=== PATIENT | female | born 1970 | race Caucasian/White ===

== ENCOUNTER → 2018-10-02 22:39 | Outpatient (CLI) | payer OTHER, SELFPAY ==
[2018-10-02 16:41] VITALS: BMI 37.9
== END ==
PROVIDERS: Visit Provider Nurse Practitioner
DX: R50.81 Fever presenting with conditions classified elsewhere (principal)
CPT/HCPCS: 87086

== ENCOUNTER → 2019-02-28 22:27 | Outpatient (CLI) | payer OTHER, SELFPAY ==
[2019-02-28 19:04] VITALS: BMI 33.3
[2019-02-28 23:06] LABS: Luteinizing Hormone 35.7 mIU/mL; Thyroid Stim Hormone (TSH) 2.48 uIU/mL (0.358-3.74)
== END ==
PROVIDERS: Referring Provider Nurse Practitioner; Visit Provider Nurse Practitioner
DX: Z78.0 Asymptomatic menopausal state (principal)
CPT/HCPCS: 83001; 83002; 84443

== ENCOUNTER → 2019-08-16 08:40 | Outpatient (CLI) | payer OTHER, SELFPAY ==
--- NOTE | 2019-08-16 | IMM_PTH ---
PATIENT: MEGHAN GRANT LOC: [facility] U#:[id number] AGE/SX: 54/F ROOM: RE08/16/[address]: AKILA Otto : 1970 BED: DIS: SPEC #: [id number] RECD: 08/21/19 12:43 STATUS: FLAKO VENU #: [id number] MALLORY: 08/16/19 00:[address]: Guera Bryant NP DEPT: IMMUNOHISTOCHEMISTRY RECD BY: Precious Lindsey Tissues: Skin of lower extremity and hip Procedures: SMA (add) CD34 (add) MACRO (add) Vimentin (add) NEUROFIL (add) Pankeratin (initial) S-100 (add) PHYSICIAN & INSTITUTION [place] [address] SPECIMEN INFORMATION: Tissue Source: Abnormal nevi left thigh Clinical Info: Abnormal nevi left thigh Specimen Number: [id number] CPT code: 66972, 08325 x6 METHODOLOGY: Deparaffinized sections of prefer/formalin-fixed tissue or PAP/DQ stained slides are incubated with monoclonal/polyclonal antibodies/oligonucleotide probes. Localization is made via biotin free immunoperoxidase method. Appropriate controls are performed and reacted as expected. Results on target cell population are indicated in the following table: RESULTS: ANTIBODY / CLONE RESULT AE1-3 (AE1/AE3/PCK26) negative Vimentin (V9) positive Actin (1A4) negative CD34 (QBEnd-10) positive, focal Macro (HAM-56) negative S-100 (4C4.9) negative Neurofil (2F11) negative These tests were developed and their performance characteristics determined by [facility]. They may not have been cleared or approved by the [place] Food and Drug Administration. The FDA has determined that such clearance or approval is not necessary. The above immunohistochemical/dualISH markers are ordered and reviewed by the Pathologist. INTERPRETATION: Left thigh biopsy: Consistent with dermatofibroma. AM:lora 08/22/19
--- NOTE | 2019-08-16 | LES_PTH ---
PATIENT: MEGHAN GRANT LOC: [facility] U#:[id number] AGE/SX: 54/F ROOM: RE08/16/[address]: AKILA Otto : 1970 BED: DIS: SPEC #: [id number] RECD: 08/16/19 21:19 STATUS: FLAKO VENU #: [id number] MALLORY: 08/16/19 00:[address]: Guera Bryant NP DEPT: SURGICAL PATHOLOGY RECD BY: Oscar Can Tissues: Skin of leg, NOS Procedures: Surgery Specimen Level IV HEADER OPERATION: Biopsy PRE-OP DIAGNOSIS: Neoplasm TISSUE SUBMITTED: Abnormal nevi left thigh MICROSCOPIC DIAGNOSIS Skin lesion of left thigh, biopsy: Consistent with dermatofibroma. See comment. AM:lora 08/21/19 COMMENT Immunohistochemistry ([id number]) supports the above diagnosis. Case has been reviewed in consultation with Dr. Beckman who concurs with the above diagnosis. IDC:SJ MICROSCOPIC DESCRIPTION Slides are reviewed. GROSS DESCRIPTION Received in fixative is one container labeled with the patient's name and designated left thigh. The specimen consists of a punch biopsy of hallman-white skin measuring 2.5 cm in diameter and 0.2 cm in length. The specimen is inked, longitudinally bisected and submitted entirely in one cassette. / KRISTINA:lora 08/20/19 TC:5 CPT: 27694
[2019-08-16 21:04] VITALS: BMI 34.3
== END ==
PROVIDERS: PCP Nurse Practitioner; Visit Provider Nurse Practitioner
DX: D49.2 Neoplasm of unspecified behavior of bone, soft tissue, and skin (principal)
CPT/HCPCS: 88305; 88341; 88342

== ENCOUNTER → 2019-10-24 22:03 | Outpatient (CLI) | payer OTHER, SELFPAY ==
[2019-10-24 16:28] VITALS: BMI 34.3
[2019-10-24 22:12] LABS: Absolute Lymphocyte Count 1.84 X10^3/uL (0.83-4.51); Basophil# 0.02 X10^3/uL; Basophil% 0.3 % (0-1); Eosinophils% 1.5 % (0-5); Hematocrit 39.4 % (37-47); Hemoglobin 13.6 g/dL (12.0-15.0); Lymphocyte # 1.84 X10^3/ul (4.0); Lymphocyte % 28.4 % (19-41); Mean Corp Hgb Conc 34.5 g/dL (32-36); Mean Corpuscular Hgb 30.9 pg (27.0-32.0); Mean Corpuscular Volume 89.5 fL (81-99); Mean Platelet Vol. 11.8 fl (6.2-12.0); Monocyte# 0.48 X10^3/uL; Monocyte% 7.4 % (0-10); NRBC Flagged by Analyzer 0 % (0-5); Neutrophil # 4.02 X10^3/uL (2.7-7.7); Neutrophil % 62.1 % (47-70); Platelet Count 235 K/mm3 (150-450); RBC Distribution Width CV 12.8 % (11.6-14.6); RBC Distribution Width SD 41.2 fl (35.1-43.9); White Blood Count 6.5 K/mm3 (4.4-11.0)
[2019-10-24 22:36] LABS: ALB/GLOB Ratio 1.3 RATIO (0.9-2.4); AST(SGOT) 20 U/L (15-37); Alanine Aminotransfer ALT/SGPT 27 U/L (13-56); Albumin, Serum 4.1 g/dL (3.2-5.0); Alkaline Phosphatase 66 U/L (45-117); Anion Gap 5 (5-15); BUN 14 mg/dL (7-18); BUN/Creat Ratio 15.3 RATIO (10-20); Calcium,Total 9.1 mg/dL (8.5-10.1); Chloride 110 mmol/L (98-107); Cholesterol 274 mg/dL (200); Creatinine, Serum 0.91 mg/dL (0.55-1.02); EST Glomerular Filtration Rate 69 mL/min (>60); Est Glom Filt Rate - Afr Amer 83 mL/min (>60); Globulin 3.2 g/dL (2.2-4.2); Glucose 90 mg/dL (74-106); High Density Lipoprotein 66 mg/dL; Potassium 3.8 mmol/L (3.5-5.1); Protein, Total 7.3 g/dL (6.4-8.2); Sodium Level 142 mmol/L (136-145); Thyroid Stim Hormone (TSH) 1.58 uIU/mL (0.358-3.74); Triglycerides 171 mg/dL; Very Low Density Lipoprotein 34 mg/dL (5-40)
[2019-10-28 17:33] LABS: Vitamin D 1,25-Dihydroxy 35.8 pg/mL (19.9-79.3)
== END ==
PROVIDERS: PCP Nurse Practitioner; Referring Provider Nurse Practitioner; Visit Provider Nurse Practitioner
DX: E78.00 Pure hypercholesterolemia, unspecified (principal); Z78.0 Asymptomatic menopausal state; E55.9 Vitamin D deficiency, unspecified; E03.9 Hypothyroidism, unspecified
CPT/HCPCS: 80053; 80061; 82652; 84443; 85025

== ENCOUNTER → 2021-02-16 07:55 | Outpatient (CLI) | payer BC, SELFPAY | PROVIDERS: PCP Nurse Practitioner; Referring Provider Nurse Practitioner; Visit Provider Nurse Practitioner | DX: U07.1 COVID-19 (principal) | CPT/HCPCS: 87635; C9803; U0005; U0003 ==

== ENCOUNTER 2021-02-17 13:59 | Outpatient (CLI) | payer BC, SELFPAY ==
[2021-02-17] MEDS: 0.9% Saline Lock 10 ML Syringe IV (14:07)
[2021-02-17 14:08] VITALS: BP 118/72; PULSE 65; RESP 16; TEMP 36.7; O2SAT 100; BMI 30.7
[2021-02-17 15:31] VITALS: BP 103/58; PULSE 53; RESP 16; TEMP 36.8; O2SAT 100
[2021-02-17 16:18] VITALS: BP 102/60; PULSE 58; RESP 16; TEMP 36.7; O2SAT 98
== END 2021-02-17 16:35 | disposition home or self-care (01) ==
LOC: MS3OUT 13:59 → MS3 14:00
PROVIDERS: PCP Nurse Practitioner; Referring Provider Nurse Practitioner Adult Health; Visit Provider Nurse Practitioner Adult Health
DX: Z23 Encounter for immunization (principal); U07.1 COVID-19
CPT/HCPCS: J7050; M0245; Q0245; A4216

== ENCOUNTER → 2022-05-24 | Outpatient (CLI) | payer OTHER, SELFPAY ==
[2022-05-24 21:29] LABS: Absolute Lymphocyte Count 2.05 X10^3/uL (0.83-4.51); Absolute Neutrophil Count 2.8 X10^3/uL (2.0-7.7); Basophil# 0.03 X10^3/uL; Basophil% 0.6 % (0-1); Eosinophil# 0.07 X10^3/uL; Eosinophils% 1.3 % (0-5); Hematocrit 39.7 % (37-47); Hemoglobin 13.7 g/dL (12.0-15.0); Lymphocyte # 2.05 X10^3/ul (0.83-4.51); Lymphocyte % 38.2 % (19-41); Mean Corp Hgb Conc 34.5 g/dL (32-36); Mean Corpuscular Hgb 30.6 pg (27.0-32.0); Mean Corpuscular Volume 88.8 fL (81-99); Mean Platelet Vol. 11.5 fl (6.2-12.0); Monocyte# 0.42 X10^3/uL; Monocyte% 7.8 % (0-10); NRBC Flagged by Analyzer 0 % (0-5); Neutrophil # 2.78 X10^3/uL (2.7-7.7); Neutrophil % 51.9 % (47-70); Platelet Count 203 K/mm3 (150-450); RBC Distribution Width CV 12.1 % (11.6-14.6); RBC Distribution Width SD 39.2 fl (35.1-43.9); Red Blood Count 4.47 M/mm3 (4.2-5.4); White Blood Count 5.4 K/mm3 (4.4-11.0)
[2022-05-24 21:38] LABS: International Normalized Ratio 0.9
[2022-05-24 21:53] LABS: ALB/GLOB Ratio 1.4 RATIO (0.9-2.4); AST(SGOT) 14 U/L (15-37); Alanine Aminotransfer ALT/SGPT 19 U/L (13-56); Albumin, Serum 4.2 g/dL (3.2-5.0); Alkaline Phosphatase 62 U/L (45-117); Anion Gap 6 (5-15); BUN 10 mg/dL (7-18); BUN/Creat Ratio 17.3 RATIO (10-20); CRP, High Sensitivity Cardiac 0.67 mg/L; Calcium,Total 9.5 mg/dL (8.5-10.1); Chloride 105 mmol/L (98-107); Cholesterol 243 mg/dL (200); Creatinine, Serum 0.58 mg/dL (0.55-1.02); EST Glomerular Filtration Rate 116 mL/min (>60); Est Glom Filt Rate - Afr Amer 140 mL/min (>60); Globulin 3.1 g/dL (2.2-4.2); Glucose 89 mg/dL (74-106); High Density Lipoprotein 67 mg/dL; Potassium 3.6 mmol/L (3.5-5.1); Protein, Total 7.3 g/dL (6.4-8.2); Sodium Level 140 mmol/L (136-145); Thyroid Stim Hormone (TSH) 1.77 uIU/mL (0.358-3.74); Triglycerides 135 mg/dL; Very Low Density Lipoprotein 27 mg/dL (5-40)
[2022-05-30 19:01] LABS: Anti-Cardiolipin Ab, IgA, Qn < 9 APL U/mL (0-11); Anti-Cardiolipin Ab, IgG, Qn < 9 GPL U/mL (0-14); Anti-Cardiolipin Ab, IgM, Qn < 9 MPL U/mL (0-12)
== END | disposition home or self-care (01) ==
PROVIDERS: PCP Nurse Practitioner; Visit Provider Nurse Practitioner
DX: Z00.00 Encounter for general adult medical examination without abnormal findings (principal); D69.9 Hemorrhagic condition, unspecified; E78.5 Hyperlipidemia, unspecified; R23.0 Cyanosis
CPT/HCPCS: 80053; 80061; 81241; 84443; 85025; 85610; 86141; 86147

== ENCOUNTER → 2025-01-22 | Outpatient (CLI) | payer OTHER, SELFPAY ==
--- OUTSIDE RECORDS SUMMARY | 2025-01-22 22:38 | XMS RPT_ITS | CCD ---
Author Organization [facility] Care Team Providers Care Section Leader And Machine Setter Name Role Phone Manny HICKS.MICHAEL, Lashawn L Primary Care Provide r Manny CORE RESCUER, Lashawn Attending Unavailable Manny CORE RESCUER, Lashawn Primary Care Unavailable BETHEL JOYCE Attending Daisyv janel Bryant BED SPRING MAKER.FIRE POT OPERATOR, Lashawn L Primary Care Provide r PROVIDER, UNKNOWN Referring Unavailable BRYANT, LASHAWN L Primary Care Unavailable WILL KNOX Referring Unavailable BRYANT, LASHAWN L Primary Care Unavailable BRYANT, LASHAWN L Primary Care Unavailable PROVIDER, UNKNOWN Referring Unavailable BRYANT, LASHAWN L Primary Care Unavailable PROVIDER, UNKNOWN Referring Unavailable BERNARDA SUGGS Attending Unavailable BRYANT, LASHAWN L Primary Care Unavailable BARBIE PEARL Attending Unavailable BRYANT, LASHAWN L Primary Care Unavailable BRYANT, LASHAWN L Primary Care Unavailable KING POTTS (RES) Attending Unavailabl e BRYANT, LASHAWN L Primary Care Unavailable KAMRYN ADAMS Attending Unavaila ble Allergies Allergy Classification Reported Allergen(s) Allergy Type Date of Onset Reaction(s) Facility (13 sources) Adhesive Tape-Silicones; Translations: [ADHESIVE TAPE-SILICONES] Propensity to adverse reactions to drug 09-13-[address] [facility] Medications Current Medications Medication Drug Class(es) Dates Sig (Normalized) Sig (Original) amoxicillin 875 mg / clavulanate 125 mg oral tablet (3 sources) Penicillin-class Antibacterial Start: 02-23-2022 End: 05-24-2022 take 1 tablet by mouth twice daily Amoxicillin-Pot Clavulanate Active 1 TABLET PO TWICE A DAY May 24, 2022 3:45pm Start: 03-18-2020 End: 04-08-2020 take 1 tablet by mouth twice daily Amoxicillin-Pot Clavulanate Discontinued 1 TABLET PO TWICE A DAY March 18, 2020 12:00am April 08, 2020 5:26pm atorvastatin 20 mg oral tablet (10 sources) HMG-CoA Reductase Inhibitor Start: 09-05-2023 take 1 tablet by mouth once atorvastatin (LIPITOR) 20 mg tablet Take 1 tablet by mouth every afternoon. 09/05/2023 Active Black Cohosh Extract (16 sources) Start: 01-01-2020 Black Cohosh 200 mg cap 1 a day 30 capsule 11 01/01/2020 Active Comment on above: 1 a day cholecalciferol 0.125 mg oral tablet (3 sources) Vitamin D take 1 tablet by mouth once daily cholecalciferol (VITAMIN D-3) 5,000 unit tab Take 5,000 Units by mouth once daily. Active estrogens, conjugated (senior care) 0.625 mg/ml vaginal cream (3 sources) Estrogen Start: 10-26-2023 conjugated estrogens (PREMARIN) vaginal cream Use 0.5 g vaginally three times a week. 30 g 2 10/26/2023 Active ibuprofen 800 mg oral tablet (4 sources) Nonsteroidal Anti-inflammatory Drug Start: 03-18-2020 End: 03-18-2020 take 800 mg by mouth three times daily Ibuprofen Active 800 MG PO THREE TIMES A DAY 60 March 18, 2020 3:24pm Start: 11-30-2018 End: 02-03-2020 take 800 mg by mouth three times daily Ibuprofen Discontinued 800 MG PO THREE TIMES A DAY 60 February 28, 2019 6:59pm February 03, 2020 3:35pm predniSONE 10 mg oral tablet (6 sources) Start: 10-18-2023 predniSONE (DE LTASONE) 10 mg tablet Take 10 mg by mouth as directed. 10/18/2023 Active Start: 02-08-2022 End: 05-24-2022 take 40 mg by mouth once daily Prednisone Discontinued 40 MG PO DAILY February 08, 2022 12:00am May 24, 2022 8:33pm Start: 04-13-2021 End: 10-12-2021 take 40 mg by mouth once daily Prednisone Discontinued 40 MG PO DAILY April 13, 2021 12:00am October 12, 2021 7:20pm Start: 06-16-2018 End: 06-23-2018 take 20 mg by mouth once daily Prednisone Discontinued 20 MG PO DAILY 14 June 15, 2018 11:00pm June 22, 2018 11:08pm topiramate 50 mg oral tablet (3 sources) Start: 10-18-2023 take 1 tablet by mouth twice daily topiramate (TOPAMAX) 50 mg tablet Take 50 mg by mouth two times a day. 10/18/2023 Active traMADol hydrochloride 50 mg oral tablet (17 sources) Opioid Agonist Start: 08-30-2023 take 1 tablet by mouth every twelve hours as needed traMADol (ULTRAM) 50 mg tablet Take 50 mg by mouth two times a day as needed for pain. 08/30/2023 Active Start: 02-23-2022 take 50 mg by mouth twice daily Tramadol Active 50 MG PO TWICE A DAY 60 February 23, 2022 12:00am Start: 02-03-2020 End: 10-12-2021 take 50 mg by mouth three times daily Tramadol Discontinued 50 MG PO THREE TIMES A DAY 90 November 04, 2020 4:04pm October 12, 2021 7:20pm Start: 02-28-2019 End: 02-03-2020 take 50 mg by mouth every four hours Tramadol Discontinued 50 MG PO Q4H 90 October 24, 2019 2:42pm February 03, 2020 3:35pm Start: 11-30-2018 End: 02-28-2019 take 50 mg by mouth every six hours Tramadol Discontinued 50 MG PO EVERY 6 HOURS 42 November 29, 2018 11:00pm February 28, 2019 7:00pm vitamin b12 1 mg oral tablet (3 sources) Vitamin B12 take 1 tablet by mouth once daily cyanocobalamin (VITAMIN B-12) 1,000 mcg tab Take 1,000 mcg by mouth once daily. Active Completed/Discontinued Medications Medication Drug Class(es) Dates Sig (Normalized) Sig (Original) [id number] 200 actuat albuterol 0.09 mg/actuat metered dose inhaler (1 source) beta2-Adrenergic Agonist Start: 02-24-2021 End: 02-08-2022 take 1 puff(s) by inhalation every four hours Albuterol Sulfate (Ventolin Hfa) 90 mcg/actuation HFA aerosol inhaler Discontinued 2 PUFF INHALATION Q4H 6.7 February 24, 2021 12:00am February 08, 2022 3:14pm amoxicillin 875 mg oral tablet (1 source) Penicillin-class Antibacterial Start: 02-03-2020 End: 03-18-2020 take 875 mg by mouth twice daily Amoxicillin Discontinued 875 MG PO TWICE A DAY February 03, 2020 12:00am March 18, 2020 3:20pm azithromycin 250 mg oral tablet (6 sources) Macrolide Antimicrobial Start: 02-08-2022 End: 02-13-2022 Azithromycin Discontinued 250 MG PO daily 6 February 08, 2022 12:00am February 13, 2022 12:03am 2 po qd for 1 day then 1 po qd for 4 days with food or after eating Start: 10-12-2021 End: 10-17-2021 Azithromycin Discontinued 25 0 MG PO daily 6 October 11, 2021 11:00pm October 16, 2021 11:03pm 2 po qd for 1 day then 1 po qd for 4 days with food or after eating Start: 11-04-2020 End: 11-09-2020 Azithromycin Discontinued 25 0 MG PO daily 6 November 03, 2020 11:00pm November 08, 2020 11:01pm 2 po qd for 1 day then 1 po qd for 4 days with food or after eating Start: 06-29-2020 End: 07-04-2020 Azithromycin Discontinued 25 0 MG PO daily 6 June 28, 2020 11:00pm July 03, 2020 11:03pm 2 po qd for 1 day then 1 po qd for 4 days with food or after eating Start: 04-20-2020 End: 04-25-2020 Azithromycin Discontinued 25 0 MG PO daily 6 April 20, 2020 12:00am April 25, 2020 12:03am 2 po qd for 1 day then 1 po qd for 4 days with food or after eating Start: 05-31-2019 End: 06-05-2019 Azithromycin Discontinued 25 0 MG PO daily 6 May 31, 2019 12:00am June 04, 2019 11:07pm 2 po qd for 1 day then 1 po qd for 4 days with food or after eating benzonatate 200 mg oral capsule (1 source) Non-narcotic Antitussive Start: 04-13-2021 End: 10-12-2021 take 200 mg by mouth three times daily Benzonatate Discontinued 200 MG PO THREE TIMES A DAY 60 April 13, 2021 12:00am October 12, 2021 7:20pm brompheniramine maleate 0.4 mg/ml / dextromethorphan hydrobromide 2 mg/ml / pseudoephedrine hydrochloride 6 mg/ml oral solution (2 sources) alpha-Adrenergic Agonist, Uncompetitive H-rbprho-V-aspartat e Receptor Antagonist, Sigma-1 Agonist Start: 02-08-2022 End: 05-24-2022 take 1 mL by mouth every twelve hours Brompheniramine-Pse udoeph-Dm (Bromfed Dm) 2-30-10 mg/5 mL syrup Discontinued 10 ML PO Q12H February 23, 2022 7:40pm May 24, 2022 8:32pm cefdinir 300 mg oral capsule (1 source) Cephalosporin Antibacterial Start: 02-24-2021 End: 04-13-2021 take 300 mg by mouth twice daily Cefdinir Discontinued 300 MG PO TWICE A DAY February 24, 2021 12:00am April 13, 2021 7:42pm cefuroxime 500 mg oral tablet (1 source) Cephalosporin Antibacterial Start: 06-16-2018 End: 06-26-2018 take 500 mg by mouth every twelve hours Cefuroxime Axetil Discontinued 500 MG PO Q12H 13 01June 15, 2018 11:00pm June 25, 2018 11:07pm ciprofloxacin 500 mg oral tablet (1 source) Quinolone Antimicrobial Start: 10-02-2018 End: 02-28-2019 take 1 tablet by mouth twice daily Ciprofloxacin Hcl (Cipro) 500 mg tablet Discontinued 500 MG PO TWICE A DAY October 01, 2018 11:00pm February 28, 2019 6:59pm clarithromycin 500 mg oral tablet (1 source) Macrolide Antimicrobial Start: 04-13-2021 End: 10-12-2021 take 500 mg by mouth twice daily Clarithromycin Discontinued 500 MG PO TWICE A DAY April 13, 2021 12:00am October 12, 2021 7:20pm cloNIDine hydrochloride 0.1 mg oral tablet (1 source) Central alpha-2 Adrenergic Agonist Start: 02-28-2019 End: 05-31-2019 take 0.1 mg by mouth twice daily Clonidine Hcl Discontinued 0.1 MG PO TWICE A DAY February 28, 2019 12:00am May 31, 2019 8:47pm cyclobenzaprine hydrochloride 5 mg oral tablet (2 sources) Muscle Relaxant Start: 11-30-2018 End: 02-03-2020 take 5 mg by mouth three times daily Cyclobenzaprine Discontinued 5 MG PO THREE TIMES A DAY 60 February 28, 2019 6:59pm February 03, 2020 3:35pm dexamethasone 6 mg oral tablet (2 sources) Corticosteroid Start: 11-04-2020 End: 04-13-2021 take 6 mg by mouth once daily Dexamethasone Discontinued 6 MG PO DAILY February 24, 2021 4:06pm April 13, 2021 7:42pm levoFLOXacin 500 mg oral tablet (1 source) Quinolone Antimicrobial Start: 04-08-2020 End: 04-20-2020 take 500 mg by mouth once daily Levofloxacin Discontinued 500 MG PO DAILY April 08, 2020 12:00am April 20, 2020 3:25pm oseltamivir 75 mg oral capsule (1 source) Neuraminidase Inhibitor Start: 06-16-2018 End: 06-21-2018 take 75 mg by mouth twice daily Oseltamivir Discontinued 75 MG PO TWICE A DAY 12 29June 15, 2018 11:00pm June 20, 2018 11:08pm PARoxetine hydrochloride 20 mg oral tablet (19 sources) Serotonin Reuptake Inhibitor Start: 08-26-2020 End: 02-08-2022 take 20 mg by mouth once daily Paroxetine Hcl Discontinued 20 MG PO DAILY October 12, 2021 7:21pm February 08, 2022 3:14pm Start: 05-31-2019 End: 10-24-2019 take 10 mg by mouth once daily Paroxetine Hcl Disconti nued 10 MG PO DAILY May 31, 2019 12:00am October 24, 2019 2:32pm Comment on above: Take 20 mg by mouth once daily. promethazine hydrochloride 12.5 mg oral tablet (1 source) Phenothiazine Start: 10-03-19 End: 10-24-19 take 12.5 mg by mouth every four hours Promethazine Discontinued 12.5 MG PO Q4H October 01, 2018 11:00pm October 24, 2019 2:32pm valACYclovir 500 mg oral tablet (20 sources) Herpesvirus Nucleoside Analog DNA Polymerase Inhibitor, Herpes Simplex Virus Nucleoside Analog DNA Polymerase Inhibitor, Herpes Zoster Virus Nucleoside Analog DNA Polymerase Inhibitor Start: 03-02-20 End: 02-28-20 take 1 tablet by mouth twice daily as needed valACYclovir (VALTREX) 500 mg tablet TAKE 1 TABLET BY MOUTH TWICE A DAY FOR 3 DAYS PRN 180 tablet 1 02/28/2024 02/28/2024 Discontinued Comment on above: TAKE 1 TABLET BY RIVKA TWICE A DAY FOR 3 DAYS Problems Active Problems Problem Classification Problem Date Documented Da te Episodic/Chronic Acute bronchitis (1 source) Acute bacterial bronchitis; Translations: [Acute bronchitis due to other specified organisms] 02-08-2022 Episodic Allergic reactions (1 source) Urticaria, unspecified; Translations: [Hives] Onset: 08-15-2024 Episodic Anxiety disorders (16 sources) Anxiety; Translations: [Anxiety disorder, unspecified] Onset: 01-17-2018 01-17-2018 Chronic Chronic obstructive pulmonary disease and bronchiectasis (1 source) Bronchitis; Translations: [Bronchitis, not specified as acute or chronic] 04-08-2020 Episodic Coagulation and hemorrhagic disorders (1 source) Blood coagulation disorder; Translations: [Hemorrhagic condition, unspecified] 05-24-2022 Episodic Disorders of lipid metabolism (1 source) Hyperlipidemia; Translations: [Hyperlipidemia, unspecified] 05-24-2022 Chronic Fever of unknown origin (2 sources) Fever; Translations: [Fever, unspecified] 10-02-2018 Episodic Fracture of lower limb (1 source) Fracture of phalanx of foot; Translations: [Unspecified fracture of left toe(s), initial encounter for closed fracture] 02-23-2022 Episodic Immunizations and screening for infectious disease (3 sources) Contact with or exposure to other viral diseases; Translations: [Close exposure to COVID-19 virus] 02-15-2021 Episodic Influenza (1 source) Influenza due to Influenza A virus; Translations: [Influenza due to other identified influenza virus with other respiratory manifestations] 06-16-2018 Episodic Malaise and fatigue (1 source) Fatigue; Translations: [Other fatigue] 03-18-2020 Episodic Menopausal disorders (1 source) Menopausal flushing; Translations: [Menopausal and female climacteric states] 08-28-2020 Chronic Mood disorders (16 sources) Depressive disorder; Translations: [Depression] Onset: 01-17-2018 01-17-2018 Chronic Nausea and vomiting (2 sources) Nausea; Translations: [Nausea] 11-30-2018 Episodic Nonspecific chest pain (8 sources) Chest pain; Translations: [Chest pain, unspecified] Onset: 08-31-2023 09-12-2023 Episodic Open wounds of extremities (2 sources) Laceration of knee; Translations: [Laceration without foreign body, unspecified knee, initial encounter] 10-08-2018 Episodic Other and unspecified benign neoplasm (1 source) Change in skin lesion; Translations: [Melanocytic nevi, unspecified] 08-12-2019 Episodic Other connective tissue disease (1 source) Heel pain; Translations: [Pain in right foot] 02-28-2019 Episodic Other connective tissue disease (1 source) Bursitis of hip; Translations: [Other bursitis of hip, unspecified hip] 03-18-2020 Episodic Other infections; including parasitic (1 source) Post-viral disorder; 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] 02-25-2021 Chronic Other injuries and conditions due to external causes (1 source) Abrasion; Translations: [Other injury of unspecified body region, initial encounter] 10-01-2018 Episodic Other injuries and conditions due to external causes (1 source) Injury of coccyx; Translations: [Unspecified injury of lower back, initial encounter] 06-16-2018 Episodic Other lower respiratory disease (1 source) Cough; Translations: [Cough] 11-04-2020 Episodic Other lower respiratory disease (1 source) Cyanotic attack; Translations: [Cyanosis] 05-24-2022 Episodic Other non-traumatic joint disorders (1 source) Pain in left knee; Translations: [Left knee pain] 10-08-2018 Episodic Other nutritional; endocrine; and metabolic disorders (1 source) Body mass index 30+ - obesity; Translations: [Body mass index (BMI) 31.0-31.9, adult] 02-16-2021 Chronic Other nutritional; endocrine; and metabolic disorders (4 sources) Obese class I; Translations: [Obesity, unspecified] Onset: 10-26-2023 10-26-2023 Chronic Other skin disorders (1 source) Disorder of skin of lower limb; Translations: [Disorder of the skin and subcutaneous tissue, unspecified] 08-12-2019 Episodic Other skin disorders (1 source) Localized swelling, mass and lump, head; Translations: [Facial swelling] Onset: 08-15-2024 Episodic Otitis media and related conditions (3 sources) Acute right otitis media; Translations: [Otitis media, unspecified, right ear] 03-18-2020 Episodic Residual codes; unclassified (1 source) Flushing; Translations: [Flushing] 05-31-2019 Episodic Spondylosis; intervertebral disc disorders; other back problems (1 source) Low back pain; Translations: [Low back pain] 11-30-2018 Episodic Urinary tract infections (1 source) Cystitis; Translations: [Cystitis, unspecified without hematuria] 10-02-2018 Episodic Viral infection (2 sources) COVID-19; Translations: [Pneumonia due to COVID-19 virus] 02-24-2021 Episodic Past or Other Problems Problem Classification Problem Date Documented Date Episodic/Chronic Other female genital disorders (4 sources) Vaginal dryness; Translations: [Other specified noninflammatory disorders of vagina] Onset: 10-26-2023 10-26-2023 Episodic Other screening for suspected conditions (not mental disorders or infectious disease) (20 sources) Patient encounter status; Translations: [Encounter for screening mammogram for malignant neoplasm of breast] Onset: 08-05-2015 Episodic Residual codes; unclassified (5 sources) Menopause present; Translations: [Asymptomatic menopausal state] Onset: 10-26-2023 02-28-2019 Episodic Unclassified (1 source) ABLATION 10-25-2021 Unclassified (1 source) C SECT X3 10-25-2021 Results Test Name Value Interpretation Reference Range Facility Basic metabolic 2000 panelon 08-15-2024 Anion gap [Moles/Vol] 10 mmol/L Normal 8-15 [facility] Comment on above: Order Comment: Speci men Type: BLOOD SPECIMENOrdering Facility: [facility] Address: [address] [place] [address] Performed By: #### 2 4321-2 ####[facility] [id number] [place] [address] [place] Calcium [Mass/Vol] 10.2 mg/dL Normal 8.5-10.2 [facility] Comment on above: Order Comment: Speci men Type: BLOOD SPECIMENOrdering Facility: [facility] Address: [address] [place] [address] Performed By: #### 2 4321-2 ####[facility] LABCLIA [id number] [place] [address] [place] Chloride [Moles/Vol] 104 mmol/L Normal 98-107 [facility] Comment on above: Order Comment: Speci men Type: BLOOD SPECIMENOrdering Facility: [facility] Address: [address] [place] [address] Performed By: #### 2 4321-2 ####[facility] LABCLIA [id number] [place] [address] [facility] [place] CO2 [Moles/Vol] 26 mmol/L Normal 22-30 [facility] Comment on above: Order Comment: Speci men Type: BLOOD SPECIMENOrdering Facility: [facility] Address: [address] [place] [address] Performed By: #### 2 4321-2 ####[facility] [id number] [place] [address] [facility] Creatinine [Mass/Vol] 0.58 mg/dL Normal 0.58-0.96 [facility] Comment on above: Order Comment: Speci men Type: BLOOD SPECIMENOrdering Facility: [facility] Address: [address] [place] [address] Performed By: #### 2 4321-2 ####[facility] [id number] [place] [address] [facility] Creatinine and Glomerular filtration rate.predicted panel (S/P/Bld) 107 mL/min/1.73m??? Normal >=60 [facility] Comment on above: Order Comment: Speci men Type: BLOOD SPECIMENOrdering Facility: [facility] Address: [address] [place] [address] Result Comment: Ester mated Glomerular Filtration Rate (eGFR) is calculated using the 2020 CKD-EPI creatinine equation. This equation utilizes serum creatinine, sex, and age as parameters. The creatinine assay has traceable calibration to isotope dilution-mass spectrometry. Refer to KDIGO guidelines for clinical interpretation. In patients with unstable renal function, e.g. those with acute kidney injury, the eGFR may not accurately reflect actual GFR. Performed By: #### 2 4321-2 ####[facility] LABCLIA [id number] [place] [address] [place] Glucose [Mass/Vol] 88 mg/dL Normal 74-99 [facility] Comment on above: Order Comment: Cameron matamoros Type: BLOOD SPECIMENOrdering Facility: [facility] Address: [address] [place] [address] Result Comment: The [place] Diabetes Association (ADA) provides guidance for cutoff values for fasting glucose and random glucose. The ADA defines fasting as no caloric intake for at least 8 hours. Fasting plasma glucose results between 100 to 125 mg/dL indicate increased risk for diabetes (prediabetes). Fasting plasma glucose results greater than or equal to 126 mg/dL meet the criteria for diagnosis of diabetes. In the absence of unequivocal hyperglycemia, results should be confirmed by repeat testing. In a patient with classic symptoms of hyperglycemia or hyperglycemic crisis, random plasma glucose results greater than or equal to 200 mg/dL meet the criteria for diagnosis of diabetes. Reference: Standards of Medical Care in Diabetes 2016, [place] Diabetes Association. Diabetes Care. 2016.39(Suppl 1). Performed By: #### 2 4321-2 ####[facility] LABCLIA [id number] [place] [address] [place] Potassium [Moles/Vol] 3.9 mmol/L Normal 3.7-5.1 [facility] Comment on above: Order Comment: Cameron matamoros Type: BLOOD SPECIMENOrdering Facility: [facility] Address: [address] [place] [address] Performed By: #### 2 4321-2 ####[facility] LABCLIA [id number] [place] [address] [place] Sodium [Moles/Vol] 140 mmol/L Normal 136-144 [facility] Comment on above: Order Comment: Cameron matamoros Type: BLOOD SPECIMENOrdering Facility: [facility] Address: [address] [place], [place] [id number] Performed By: #### 2 4321-2 ####[facility] [id number] [place] [address] [place] [facility] Urea nitrogen [Mass/Vol] 10 mg/dL Normal 7-21 [facility] Comment on above: Order Comment: Speci men Type: BLOOD SPECIMENOrdering Facility: [facility] Address: [address] [place] [address] Performed By: #### 2 4321-2 ####[facility] LABCLIA [id number] [place] [address] [place] [facility] CBC W Auto Differential pane l (Bld)on 08-15-2024 Basophils (Bld) [#/Vol] 0.03 10*3/uL Normal <0.11 [facility] Comment on above: Order Comment: Speci men Type: BLOOD SPECIMENOrdering Facility: [facility] Address: [address] [place] [address] Performed By: #### 5 7021-8 ####[facility] [id number] [place] [id number] [place] Basophils/100 WBC (Bld) 0.5 % Normal [facility] Comment on above: Order Comment: Speci men Type: BLOOD SPECIMENOrdering Facility: [facility] Address: [address] [place] [address] Performed By: #### 5 7021-8 ####[facility] [id number] [place] [id number] [facility] Differential cell count method Nom (Bld) Auto Normal [facility] Comment on above: Order Comment: Speci men Type: BLOOD SPECIMENOrdering Facility: [facility] Address: [address] [place] [address] Performed By: #### 5 7021-8 ####[facility] LABCLIA [id number] [place] [address] [place] Eosinophils (Bld) [#/Vol] 0.09 10*3/uL Normal <0.46 [facility] Comment on above: Order Comment: Speci men Type: BLOOD SPECIMENOrdering Facility: [facility] Address: [address] [place] [address] Performed By: #### 5 7021-8 ####[facility] LABCLIA [id number] [place] [address] [place] Eosinophils/100 WBC (Bld) 1.6 % Normal [facility] Comment on above: Order Comment: Speci men Type: BLOOD SPECIMENOrdering Facility: [facility] Address: [address] [place] [address] Performed By: #### 5 7021-8 ####[facility] LABCLIA [id number] [place] [address] [place] Erythrocyte distribution width (RBC) [Ratio] 13.1 % Normal 11.5-15.0 [facility] Comment on above: Order Comment: Speci men Type: BLOOD SPECIMENOrdering Facility: [facility] Address: [address] [place] [address] Performed By: #### 5 7021-8 ####[facility] LABCLIA [id number] [place] [address] [place] Hematocrit (Bld) [Volume fraction] 41.0 % Normal 36.0-46.0 [facility] Comment on above: Order Comment: Speci men Type: BLOOD SPECIMENOrdering Facility: [facility] Address: [address] [place] [address] Performed By: #### 5 7021-8 ####[facility] LABCLIA [id number] [place] [address] [place] Hemoglobin (Bld) [Mass/Vol] 14.1 g/dL Normal 11.5-15.5 [facility] Comment on above: Order Comment: Speci men Type: BLOOD SPECIMENOrdering Facility: [facility] Address: [address] [place] [address] Performed By: #### 5 7021-8 ####[facility] [place] LABCLIA [id number] [place] [address] [place] Immature granulocytes (Bld) [#/Vol] 10*3/uL Normal <0.10 [facility] Comment on above: Order Comment: Speci men Type: BLOOD SPECIMENOrdering Facility: [facility] Address: [address] [place] [address] Performed By: #### 5 7021-8 ####[facility] [place] LABCLIA [id number] [place] [address] [place] [facility] Immature granulocytes/100 WBC (Bld) 0.2 % Normal [facility] Comment on above: Order Comment: Speci men Type: BLOOD SPECIMENOrdering Facility: [facility] Address: [address] [place] [address] Performed By: #### 5 7021-8 ####[facility] [place] LABCLIA [id number] [place] [address] [place] Lymphocytes (Bld) [#/Vol] 1.48 10*3/uL Normal 1.00-4.00 [facility] Comment on above: Order Comment: Speci men Type: BLOOD SPECIMENOrdering Facility: [facility] Address: [address] [place] [address] Performed By: #### 5 7021-8 ####[facility] [place] LABCLIA [id number] [place] [address] [place] [facility] Lymphocytes/100 WBC (Bld) 25.8 % Normal [facility] Comment on above: Order Comment: Speci men Type: BLOOD SPECIMENOrdering Facility: [facility] Address: [address] [place] [address] Performed By: #### 5 7021-8 ####[facility] [place] LABCLIA [id number] [place] [address] [place] MCH (RBC) [Entitic mass] 30.6 pg Normal 26.0-34.0 [facility] Comment on above: Order Comment: Speci men Type: BLOOD SPECIMENOrdering Facility: [facility] Address: [address] [place] [address] Performed By: #### 5 7021-8 ####[facility] [place] LABCLIA [id number] [facility] [place] [address] [place] MCHC (RBC) [Mass/Vol] 34.4 g/dL Normal 30.5-36.0 [facility] Comment on above: Order Comment: Speci men Type: BLOOD SPECIMENOrdering Facility: [facility] Address: [address] [place] [address] Performed By: #### 5 7021-8 ####[facility] [place] LABCLIA [id number] [facility] [place] [address] [place] MCV (RBC) [Entitic vol] 88.9 fL Normal 80.0-100.0 [facility] Comment on above: Order Comment: Speci men Type: BLOOD SPECIMENOrdering Facility: [facility] Address: [address] [place] [address] Performed By: #### 5 7021-8 ####[facility] [place] LABCLIA [id number] [place] [address] [place] Monocytes (Bld) [#/Vol] 0.58 10*3/uL Normal <0.87 [facility] Comment on above: Order Comment: Speci men Type: BLOOD SPECIMENOrdering Facility: [facility] Address: [address] [place] [address] Performed By: #### 5 7021-8 ####[facility] [place] LABCLIA [id number] [place] [address] [facility] Monocytes/100 WBC (Bld) 10.1 % Normal [facility] Comment on above: Order Comment: Speci men Type: BLOOD SPECIMENOrdering Facility: [facility] Address: [address] [place] [address] Performed By: #### 5 7021-8 ####[facility] [place] LABCLIA [id number] [place] [address] [place] Neutrophils (Bld) [#/Vol] 3.55 10*3/uL Normal 1.45-7.50 [facility] Comment on above: Order Comment: Speci men Type: BLOOD SPECIMENOrdering Facility: [facility] Address: [address] [place] [address] Performed By: #### 5 7021-8 ####[facility] [place] LABCLIA [id number] [place] [address] [place] Neutrophils/100 WBC (Bld) 61.8 % Normal [facility] Comment on above: Order Comment: Speci men Type: BLOOD SPECIMENOrdering Facility: [facility] Address: [address] [place] [address] Performed By: #### 5 7021-8 ####[facility] [place] LABCLIA [id number] [place] [address] [place] Nucleated RBC (Bld) [#/Vol] Normal [facility] Comment on above: Order Comment: Speci men Type: BLOOD SPECIMENOrdering Facility: [facility] Address: [address] [place] [address] Performed By: #### 5 7021-8 ####[facility] [place] LABCLIA [id number] [place] [address] [place] Nucleated RBC/100 WBC (Bld) [Ratio] Normal [facility] Comment on above: Order Comment: Speci men Type: BLOOD SPECIMENOrdering Facility: [facility] Address: [address] [place] [address] Performed By: #### 5 7021-8 ####[facility] [place] LABCLIA [id number] [place] [address] [place] Platelet mean volume (Bld) [Entitic vol] 11.3 fL Normal 9.0-12.7 [facility] Comment on above: Order Comment: Speci men Type: BLOOD SPECIMENOrdering Facility: [facility] Address: [address] [place] [address] Performed By: #### 5 7021-8 ####[facility] [place] LABCLIA [id number] [place] [address] [place] Platelets (Bld) [#/Vol] 218 10*3/uL Normal 150-400 [facility] Comment on above: Order Comment: Speci men Type: BLOOD SPECIMENOrdering Facility: [facility] Address: [address] [place] [address] Performed By: #### 5 7021-8 ####[facility] LABCLIA [id number] [place] [address] [facility] RBC (Bld) [#/Vol] 4.61 10*6/uL Normal 3.90-5.20 [facility] Comment on above: Order Comment: Speci men Type: BLOOD SPECIMENOrdering Facility: [facility] Address: [address] [place] [address] Performed By: #### 5 7021-8 ####[facility] LABCLIA [id number] [place] [address] [facility] WBC (Bld) [#/Vol] 5.74 10*3/uL Normal 3.70-11.00 [facility] Comment on above: Order Comment: Speci men Type: BLOOD SPECIMENOrdering Facility: [facility] Address: [address] [place] [address] Performed By: #### 5 7021-8 ####[facility] LABCLIA [id number] [place] [address] [facility] ECG COMPLETEon 08-15-2024 ECG COMPLETE Ventricular Rate : 5 4 BPM Atrial Rate : 54 BPM P-R Interval : 134 ms QRS Duration : 86 ms Q-T Interval : 422 ms QTC Calculation(Bazett) : 400 ms Calculated P Meridian : 27 degrees Calculated R Meridian : -16 degrees Calculated T Meridian : 26 degrees SINUS BRADYCARDIA OTHERWISE NORMAL ECG WHEN COMPARED WITH ECG OF 31-Aug-2023 09:53, NO SIGNIFICANT CHANGE WAS FOUND Confirmed by MD LULY, JEWELS ([id number]) on 08/16/2024 2:51:29 PM NAME : MEGHAN CULP PID : [id number] : 1970 Gender : Female Race : ORD : [id number] Procedure Date : Aug 15 2024 07:45:43 Edit Date : Aug 16 2024 14:51:32 Diagnosis: SINUS BRADYCARDIA OTHERWISE NORMAL ECG WHEN COMPARED WITH ECG OF 31-Aug-2023 09:53, NO SIGNIFICANT CHANGE WAS FOUND Confirmed by MD MAURICIO VINAYAK ([id number]) on 08/16/2024 2:51:29 PM Test Reason : Chest Pain Location : 191 : [facility] ED Overread By : MD MAURICIO VINAYAK Edited By : MD MAURICIO VINAYAK Referred By : , Acquired by : CATHIE JAIMES [facility] ED NOTEon 08-15-2024 ED NOTE HNO ID: [id number] Author: SHANDRA GIBBONS RN Service: Emergency Medicine Author Type: Registered Nurse Type: ED Notes Filed: 08/15/2024 09:47 Note Text: Pt has no rash or swelling at dispo, no chest pain or sob, pt feeling much better. [facility] ED NOTE HNO ID: [id number] Author: SHANDRA GIBBONS RN Service: Emergency Medicine Author Type: Registered Nurse Type: ED Notes Filed: 08/15/2024 08:56 Note Text: Pt feeling much better, doctor liz at bedside [facility] ED PROV NOTEon 08-15-2024 ED PROV NOTE HNO ID: [id number] Author: KAMRYN ADAMS DO Service: Emergency Medicine Author Type: Physician Type: ED Provider Notes Filed: 08/15/2024 11:49 Note Text: ED Provider Note Patient Name: Meghan Culp : 1970 SERVICE DATE: 08/15/24 History Patient presents with: Facial Swelling Headache Hives Meghan uClp is a 53 year old female who presents with Facial Swelling and Hives. - Symptoms began this morning. - Severity: moderate - Timing: constant - Symptoms are associated with chest tightness yesterday similar to prior anxiety - no chest tightness today. - Symptoms are not associated with abdominal pain, chills, diarrhea, fever, nausea, shortness of breath, URI symptoms, vomiting, difficulty swallowing. Patient presents with facial swelling and a couple hives. She states that she had chest tightness yesterday morning and 2 episodes last night which she states are typical of when she has anxiety attacks. She states that the tightness is in her chest goes up towards her neck. She states the episodes lasted about 15 minutes. She had no shortness of breath. She states symptoms are consistent with prior episodes she has had over the last couple years which she reports are anxiety related. She reports she had a cardiac work up for these symptoms already which was negative. She states after her symptoms yesterday, she noticed a little bit of swelling to her right upper eyelid. She says she woke up today and has some mild swelling around her eyes and her lip. She states that she also noticed a hive on her left lower abdomen by her prior surgical scar as well as 1 on her left breast. She states those particular areas are itchy. She states she developed a latex allergy after her tummy tuck and breast augmentation a couple years ago. She reports no known exposure to latex recently. She states that she has no difficulty breathing or swallowing. She states that she did take her tirzepatide injection last night, which was after the initial symptom started. She denies anything new that she has been exposed to. She states that she has had no further chest tightness since yesterday. She reports that she is not on any blood pressure medication including no MIMA inhibitor. 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 08/28/2012 and bilat salpingectomy NOVASURE 2009 [facility] hysteroscopy SALPINGECTOMY BTL FAMILY HISTORY Problem Relation Age of Onset Cancer Mother Uterine cancer Arrhythmia Mother A-fib Cardiomyopathy Father other (ICD) Father other (other) Brother valve disorder Social History Tobacco Use Smoking status: Never Smokeless tobacco: Never Vaping Use Vaping status: Never Used Substance and Sexual Activity Alcohol use: Yes Alcohol/week: 4.0 standard drinks of alcohol Types: 4 Glasses of Wine (5oz) per week Drug use: No Sexual activity: Yes Partners: Male control/protection: Tubal Ligation ALLERGIES Allergen Reactions Adhesive Tape-Silic* Rash Pt gets blistering Review of Systems Constitutional: Negative for chills and fever. HENT: Positive for facial swelling. Negative for drooling, ear discharge, ear pain, sore throat, trouble swallowing and voice change. Respiratory: Positive for chest tightness (Yesterday, none currently). Negative for cough and shortness of breath. Cardiovascular: Negative for chest pain, palpitations and leg swelling. Gastrointestinal: Negative for abdominal pain, diarrhea, nausea and vomiting. Genitourinary: Negative for flank pain. Musculoskeletal: Negative for neck stiffness. Skin: Positive for rash (two areas of hives). Neurological: Negative for syncope, weakness and numbness. Psychiatric/Behavioral: Negative for agitation and confusion. Physical Exam Vitals [08/15/24 0656] BP Pulse Temp Temp src Resp SpO2 Weight Height 145/75 76 36.6 ?C (97.9 ?F) Temporal Art 18 96 % 81.6 kg (180 lb) -- Physical Exam Vitals and nursing note reviewed. Constitutional: General: She is not in acute distress. Appearance: She is not ill-appearing, toxic-appearing or diaphoretic. HENT: Head: Normocephalic and atraumatic. Comments: Mild bilateral periorbital swelling. No erythema or cellulitis. Mouth/Throat: Mouth: Mucous membranes are moist. No oral lesions or angioedema. Pharynx: Oropharynx is clear. Uvula midline. No pharyngeal swelling, oropharyngeal exudate, posterior oropharyn (more content not included)... Normal [facility] HIGH SENSITIVITY TROPONIN T (INITIAL)on 08-15-2024 Troponin T.cardiac High sensitivity method [Mass/Vol] <6 Normal <12 [facility] Comment on above: Order Comment: Speci men Type: BLOOD SPECIMENOrdering Facility: [facility] Address: [address] [place], [place] [address] Performed By: #### L [id number] ####[facility] LABCLIA [id number] [place] [address] [place] HIGH SENSITIVITY TROPONIN T (SECOND)on 08-15-2024 Troponin T.cardiac High sensitivity method [Mass/Vol] <6 Normal <12 [facility] Comment on above: Order Comment: Speci men Type: BLOOD SPECIMENOrdering Facility: [facility] Address: [facility] [place] [id number] Performed By: #### L [id number] ####[facility] [id number] [place] [address] [place] XR CHEST 2V FRONTAL/LATon XR CHEST 2V FRONTAL/LAT * * *Final Report* * * DATE OF EXAM: Aug 15 2024 7:55AM LDX [id number] - XR CHEST 2V FRONTAL/LAT / PROCEDURE REASON: Chest Pain * * * * Physician Interpretation * * * * EXAMINATION: CHEST RADIOGRAPH (2 VIEW FRONTAL and LATERAL) CLINICAL HISTORY: Chest Pain MQ: [id number]_6 EXAM DATE/TIME: 08/15/2024 7:55 AM COMPARISON: 08/31/2023 RESULT: Lines, tubes, and devices: None. Lungs and pleura: No consolidation. No lung mass. No pleural effusion. No pneumothorax. Cardiomediastinal silhouette: Normal cardiomediastinal silhouette. Bones and soft tissues: Unremarkable. IMPRESSION: No acute radiographic abnormality. Assistant Community Manager: PSCB Transcribe Date/Time: Aug 15 2024 8:10A Dictated by : ANASTACIO FLORES MD This examination was interpreted and the report reviewed and electronically signed by: ANASTACIO FLORES MD on Aug 15 2024 8:11AM EST [id number] Normal [facility] CNOVon 10-26-2023 CNOV Office Visit (OBGMEM ) MEGHAN CULP ([id number]) 1970 F Date Time Provider Department 10/26/23 9:30 AM BERNARDA SUGGS OBCRISTINO During your visit today, we recorded the following information about you: Blood pressure Weight 122/78 87.2 kg Bernarda Suggs MD 10/26/2023 3:16 PM Signed Meghan is a 53 year old who presents for an annual gynecologic exam with complaints, menopausal symptoms. Has been working on physical health since 2020, doing orange theory Had tummy tuck and breast lift in 2022 On Paxil which helps with hot flashes Cut back EtOH which reduces hot flashes and hangover Biggest menopause concern is weight uses weight watchers, struggling to lose 30# when does protein feels gains does eggs, chicken, hebrew yogurt, Vaginal dryness/painful sex OTC not on HRT Postmenopausal: Yes since age HRT use: No. 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 Comment: and bilat salpingectomy 2010: NOVASURE Comment: [facility] hysteroscopy No date: SALPINGECTOMY Comment: BTL FAMILY HISTORY Problem Relation Age of Onset Cancer Mother Uterine cancer Arrhythmia Mother A-fib Cardiomyopathy Father other (ICD) Father other (other) Brother valve disorder SOCIAL HISTORY Social History Tobacco Use Smoking status: Never Smokeless tobacco: Never Substance Use Topics Alcohol use: Yes Alcohol/week: 4.0 standard drinks of alcohol Types: 4 Glasses of Wine (5oz) per week Drug use: No REVIEW OF SYSTEMS Abdomen: No abdominal pain, nausea, vomiting, diarrhea, or constipation. No bloating, early satiety, indigestion, or increased flatulence. Bladder: No dysuria, gross hematuria, urinary frequency, urinary urgency, or incontinence Breast: No breast lumps, nipple d/c, overlying skin changes, redness or skin retraction Allergies and current medication updated:Yes EXAM: BP 122/78 Wt 192 lb 3.9 oz (87.2kg) GENERAL: pleasant, female in no apparent distress HEENT: Normocephalic, atraumatic, mucus membranes moist, and no lesions NECK: Supple, full range of motion, no adenopathy, and thyroid normal DERMATOLOGY: Normal, without lesions, non-icteric, and non-hirsute BREAST: soft, non-tender, symmetric, no dominant mass, normal nipple-areolar complex, no lymphadenopathy, no nipple discharge, and scars consistent with lift, nipple sparring CHEST: Normal inspiratory effort ABDOMEN: soft, non-tender, no masses, and prior surgical scar(s) noted PELVIC: external genitalia normal, normal Bartholin's glands, urethra, Erhard's glands, no vulvar lesions, no cervical lesions, good vaginal support, physiologic discharge present, normal appearing perineal body and perianal region BIMANUAL: uterus normal size, shape and consistency, no adnexal masses, and non-tender RECTOVAGINAL: deferred NEURO: alert and oriented x3,exam grossly non-focal EXTREMITIES: normal ASSESSMENT/PLAN: 1) Health maintenance: Mammogram up to date Nutrition, exercise and routine health maintenance exams reviewed. Colon cancer screening: colonoscopy ordered 2) Follow up one year or sooner as needed Problem List Items Addressed This Visit Obesity, Class I, BMI 30-34.9 Current Assessment AND Plan Refer to [facility] wt mgmt, frustrated as regular workout routine not helping, is in meopause Relevant Orders CONSULT TO [facility] WEIGHT MANAGEMENT PROGRAM Vaginal dryness Overview Start vaginal estrogen 3x wkly 1/2 applicator Menopause Relevant Orders CONSULT TO [facility] WEIGHT MANAGEMENT PROGRAM Other Visit Diagnoses Encounter for gynecological examination (general) (routine) without abnormal findings - Primary Relevant Orders BARBRA SCREENING W BRENDA Encounter for screening mammogram for breast cancer Encounter for screening for malignant neoplasm of colon Relevant Orders CONSULT TO GASTROENTEROLOGY MD Es Ramirez Amy (more content not included)... Normal [facility] CARDIAC PERF STRESS/EXERC ISEon 09-27-2023 [place] CARDIAC PERF STRESS/EXERCISE * * *Final Report* * * DATE OF EXAM: Sep 27 2023 9:35AM SATHYA 0004 - [place] CARDIAC PERF STRESS/EXERCISE / PROCEDURE REASON: R07.9-Chest pain, unspecified type * * * * Physician Interpretation * * * * Stress Manager Oracle Report: [facility] Date of service: 09/27/2023 8:27:06 AM Supervising physician: Cuauhtemoc Sampson MD PATIENT: Name: MS. MEGHAN CULP Age: 52 years Gender: F The supervising physician was in the department and immediately available. * * * Final * * * PATIENT: Name: MS. MEGHAN CULP Age: 52 years Gender: F CONCLUSIONS: 1. SPECT Perfusion Study: Normal. 2. There is no scintigraphic evidence for inducible ischemia. 3. No evidence of scarred myocardium. 4. Left ventricle is normal in size. The left ventricle systolic function is hyperdynamic. 5. Right ventricle is normal in size. The right ventricle systolic function is normal. 6. This is a low risk scan. Gated Stress IR:3D LVEF % 73 Prior Study Comparison No prior nuclear cardiology exam available for comparison. Nuclear Med Report:1-Day Gated SPECT Myocardial Perfusion with Exercise Stress: Myocardial perfusion imaging was performed at rest 30 to 60 minutes following the IV injection of the radiotracer. One minute prior to peak exercise, the patient was injected IV with the radiotracer. Gated post stress tomographic imaging was performed 10 to 20 minutes later. See administered radiotracer and doses below. [facility] Date of service: 09/27/2023 8:27:06 AM Ordering Physician: BARBIE PEARL. Requesting Physician: Indication: CP - ECG interpretable AND able to exercise with low probability of CAD Interpreting physician: Maria Luisa Beltran MD Height: 165.10 cm BSA: 1.98 m? Weight: 85.73 kg BMI: 31.5 kg/m? Exam Type: Rest Stress Radiopharm: Tc-99m Tetrofosmin Tc-99m Tetrofosmin Dosage(mCi): 13.8 32.2 Atten Correction: not performed not performed Stress Agent: Treadmill Resting Blood Press: 127/74 mmHg Image Quality The overall study imaging quality was deemed to be fair. FINDINGS: Left Ventricle Wall Motion: Stress IR:3D - All segments are normal. Rest IR:3D - Gated Stress IR:3D - Reversibility - Stress IR:3D Stress IR:3D Gated Stress IR:3D LVEF: 73 % ED Volume: 101 ml ES Volume: 27 ml TID: 1.24 Perfusion Findings Stress IR:3D - Summed Score=0 All segments demonstrate normal perfusion. Rest IR:3D - Summed Score=0 All segments demonstrate normal perfusion. Stress IR:3D Rest IR:3D Summed Score=0 Summed Score=0 LEFT VENTRICLE The left ventricle is normal in size. Left ventricular systolic function is hyperdynamic. Right Ventricle The right ventricle is normal in size. Right ventricle systolic function is normal. Stress Test Findings: There is no scintigraphic evidence for inducible ischemia. There is no evidence of scarring. * * * Final * * * Stress ECG Report: [facility] Date of service: 09/27/2023 8:27:06 AM Ordering physician: BARBIE PEARL intensive care specialist: Norma Alanis Mycology Teacher: Francesca Arevalo Interpreting physician: Cuauhtemoc Sampson MD Patient name: MS. MEGHAN CULP Age: 52 years Gender: F Height: 165.10 cm BSA: 1.98 m? Weight: 85.73 kg BMI: 31.5 kg/m? Indication: Chest pressure / Chest tightness Stress ECG Conclusion: Conclusion: Normal Stress ECG Summary: The patient's resting heart rate was 57 bpm and blood pressure was 127/74 mmHg. The patient exercised according to the Julio C protocol. The estimated end-exercise MET level achieved using the FRIEND equation * * * was 9.4, which is in the top 10th percentile for age and sex. The estimated end-exercise MET level achieved using the previous ACSM equation was 11.8. The test was terminated due to end of protocol and the total exercise time was 10 minutes and 30 seconds. Other symptoms during the test included SOB. The maximum heart rate was 162 bpm, which is 98% of the predicted heart rate for age. This is an adequate heart rate response. Peak blood pressure was 190/78 mmHg. The double product achieved was [id number]. Medications: Last Used LIPITOR PAXIL Resting ECG: Sinus Bradycardia Symptoms at rest: No symptoms Exercise Protocol: Julio C Stress Exercise Table: +-----+ +-------- + +---+---+---+--- -+----+ Stage Speed (MPH) Grade(%) Time (min) HR SYS CLARI RPE METS +-----+ +-------- + +---+---+---+--- -+----+ 1 1.7 10.0 3.0 96 148 74 13.0 4.2 +-----+ +-------- + +---+---+---+--- -+-- (more content not included)... Normal [facility] Heart Perfusion W multipl e states of exerciseon 09-27-2023 * * *Final Report* * * DATE OF EXAM: Sep 27 2023 9:35AM SATHYA 0004 - [place] CARDIAC PERF STRESS/EXERCISE / PROCEDURE REASON: R07.9-Chest pain, unspecified type * * * * Physician Interpretation * * * * Stress Manager Oracle Report: [facility] Date of service: 09/27/2023 8:27:06 AM Supervising physician: Cuauhtemoc Sampson MD PATIENT: Name: MS. MEGHAN CULP Age: 52 years Gender: F The supervising physician was in the department and immediately available. * * * Final * * * PATIENT: Name: MS. MEGHAN CULP Age: 52 years Gender: F CONCLUSIONS: 1. SPECT Perfusion Study: Normal. 2. There is no scintigraphic evidence for inducible ischemia. 3. No evidence of scarred myocardium. 4. Left ventricle is normal in size. The left ventricle systolic function is hyperdynamic. 5. Right ventricle is normal in size. The right ventricle systolic function is normal. 6. This is a low risk scan. Gated Stress IR:3D LVEF % 73 Prior Study Comparison No prior nuclear cardiology exam available for comparison. Nuclear Med Report:1-Day Gated SPECT Myocardial Perfusion with Exercise Stress: Myocardial perfusion imaging was performed at rest 30 to 60 minutes following the IV injection of the radiotracer. One minute prior to peak exercise, the patient was injected IV with the radiotracer. Gated post stress tomographic imaging was performed 10 to 20 minutes later. See administered radiotracer and doses below. [facility] Date of service: 09/27/2023 8:27:06 AM Ordering Physician: BARBIE PEARL. Requesting Physician: Indication: CP - ECG interpretable AND able to exercise with low probability of CAD Interpreting physician: Maria Luisa Beltran MD Height: 165.10 cm BSA: 1.98 m Weight: 85.73 kg BMI: 31.5 kg/m Exam Type: Rest Stress Radiopharm: Tc-99m Tetrofosmin Tc-99m Tetrofosmin Dosage(mCi): 13.8 32.2 Atten Correction: not performed not performed Stress Agent: Treadmill Resting Blood Press: 127/74 mmHg Image Quality The overall study imaging quality was deemed to be fair. FINDINGS: Left Ventricle Wall Motion: Stress IR:3D - All segments are normal. Rest IR:3D - Gated Stress IR:3D - Reversibility - Stress IR:3D Stress IR:3D Gated Stress IR:3D LVEF: 73 % ED Volume: 101 ml ES Volume: 27 ml TID: 1.24 Perfusion Findings Stress IR:3D - Summed Score=0 All segments demonstrate normal perfusion. Rest IR:3D - Summed Score=0 All segments demonstrate normal perfusion. Stress IR:3D Rest IR:3D Summed Score=0 Summed Score=0 LEFT VENTRICLE The left ventricle is normal in size. Left ventricular systolic function is hyperdynamic. Right Ventricle The right ventricle is normal in size. Right ventricle systolic function is normal. Stress Test Findings: There is no scintigraphic evidence for inducible ischemia. There is no evidence of scarring. * * * Final * * * Stress ECG Report: [facility] Date of service: 09/27/2023 8:27:06 AM Ordering physician: BARBIE PEARL intensive care specialist: Norma Alanis Mycology Teacher: Francesca Arevalo Interpreting physician: Cuauhtemoc Sampson MD Patient name: MS. MEGHAN CULP Age: 52 years Gender: F Height: 165.10 cm BSA: 1.98 m Weight: 85.73 kg BMI: 31.5 kg/m Indication: Chest pressure / Chest tightness Stress ECG Conclusion: Conclusion: Normal Stress ECG Summary: The patient's resting heart rate was 57 bpm and blood pressure was 127/74 mmHg. The patient exercised according to the Julio C protocol. The estimated end-exercise MET level achieved using the FRIEND equation * * * was 9.4, which is in the top 10th percentile for age and sex. The estimated end-exercise MET level achieved using the previous ACSM equation was 11.8. The test was terminated due to end of protocol and the total exercise time was 10 minutes and 30 seconds. Other symptoms during the test included SOB. The maximum heart rate was 162 bpm, which is 98% of the predicted heart rate for age. This is an adequate heart rate response. Peak blood pressure was 190/78 mmHg. The double product achieved was 6[address]. Medications: Last Used LIPITOR PAXIL Resting ECG: Sinus Bradycardia Symptoms at rest: No symptoms Exercise Protocol: Julio C (more content not included)... [facility] Provider, Bushra Hernandez - 09/27/2023 * * *Final Report* * * DATE OF EXAM: Sep 27 2023 9:35AM SATHYA 0004 - [place] CARDIAC PERF STRESS/EXERCISE / PROCEDURE REASON: R07.9-Chest pain, unspecified type * * * * Physician Interpretation * * * * Stress Manager Oracle Report: [facility] Date of service: 09/27/2023 8:27:06 AM Supervising physician: Cuauhtemoc Sampson MD PATIENT: Name: MS. MEGHAN CULP Age: 52 years Gender: F The supervising physician was in the department and immediately available. * * * Final * * * PATIENT: Name: MS. MEGHAN CULP Age: 52 years Gender: F CONCLUSIONS: 1. SPECT Perfusion Study: Normal. 2. There is no scintigraphic evidence for inducible ischemia. 3. No evidence of scarred myocardium. 4. Left ventricle is normal in size. The left ventricle systolic function is hyperdynamic. 5. Right ventricle is normal in size. The right ventricle systolic function is normal. 6. This is a low risk scan. Gated Stress IR:3D LVEF % 73 Prior Study Comparison No prior nuclear cardiology exam available for comparison. Nuclear Med Report:1-Day Gated SPECT Myocardial Perfusion with Exercise Stress: Myocardial perfusion imaging was performed at rest 30 to 60 minutes following the IV injection of the radiotracer. One minute prior to peak exercise, the patient was injected IV with the radiotracer. Gated post stress tomographic imaging was performed 10 to 20 minutes later. See administered radiotracer and doses below. [facility] Date of service: 09/27/2023 8:27:06 AM Ordering Physician: BARBIE PEARL. Requesting Physician: Indication: CP - ECG interpretable AND able to exercise with low probability of CAD Interpreting physician: Maria Luisa Beltran MD Height: 165.10 cm BSA: 1.98 m Weight: 85.73 kg BMI: 31.5 kg/m Exam Type: Rest Stress Radiopharm: Tc-99m Tetrofosmin Tc-99m Tetrofosmin Dosage(mCi): 13.8 32.2 Atten Correction: not performed not performed Stress Agent: Treadmill Resting Blood Press: 127/74 mmHg Image Quality The overall study imaging quality was deemed to be fair. FINDINGS: Left Ventricle Wall Motion: Stress IR:3D - All segments are normal. Rest IR:3D - Gated Stress IR:3D - Reversibility - Stress IR:3D Stress IR:3D Gated Stress IR:3D LVEF: 73 % ED Volume: 101 ml ES Volume: 27 ml TID: 1.24 Perfusion Findings Stress IR:3D - Summed Score=0 All segments demonstrate normal perfusion. Rest IR:3D - Summed Score=0 All segments demonstrate normal perfusion. Stress IR:3D Rest IR:3D Summed Score=0 Summed Score=0 LEFT VENTRICLE The left ventricle is normal in size. Left ventricular systolic function is hyperdynamic. Right Ventricle The right ventricle is normal in size. Right ventricle systolic function is normal. Stress Test Findings: There is no scintigraphic evidence for inducible ischemia. There is no evidence of scarring. * * * Final * * * Stress ECG Report: [facility] Date of service: 09/27/2023 8:27:06 AM Ordering physician: BARBIE PEARL intensive care specialist: Norma Alanis Mycology Teacher: Francesca Arevalo Interpreting physician: Cuauhtemoc Sampson MD Patient name: MS. MEGHAN CULP Age: 52 years Gender: F Height: 165.10 cm BSA: 1.98 m Weight: 85.73 kg BMI: 31.5 kg/m Indication: Chest pressure / Chest tightness Stress ECG Conclusion: Conclusion: Normal Stress ECG Summary: The patient's resting heart rate was 57 bpm and blood pressure was 127/74 mmHg. The patient exercised according to the Julio C protocol. The estimated end-exercise MET level achieved using the FRIEND equation * * * was 9.4, which is in the top 10th percentile for age and sex. The estimated end-exercise MET level achieved using the previous ACSM equation was 11.8. The test was terminated due to end of protocol and the total exercise time was 10 minutes and 30 seconds. Other symptoms during the test included SOB. The maximum heart rate was 162 bpm, which is 98% of the predicted heart rate for age. This is an adequate heart rate response. Peak blood pressure was 190/78 mmHg. The double product achieved was 95699. Medications: Last Used LIPITOR PAXIL Resting ECG: Sinus Bradycardia Symptoms at rest: No symptoms Exercise Protocol: Julio C Stress Exercise Table: +-----+ +-------- + +---+---+---+--- -+----+ Stage Speed (MPH) Grade(%) Time (min) HR SYS CLARI RPE METS +---- (more content not included)... [facility] Radiology Study observation (narrative) [facility] NM Heart Perfusion W multipl e states of exerciseOrdered By: [facility] Provider on 09-27-[address] [facility] CNCOon 09-26-2023 CNCO HNO ID: [id number] Author: COORDINATOR, MAMMOGRAPHY, ? Service: ? Author Type: Physician Type: Letter Filed: 09/26/2023 14:43 Note Text: September 27, 2023 PID: [id number] Meghan Culp [address] [place] [address] Dear Ms. Culp, We are pleased to inform you that the results of your recent breast imaging exam on 09/25/2023 are normal. Your mammogram demonstrates that you have dense breast tissue, which could hide abnormalities. Dense breast tissue, in and of itself, is a relatively common condition. Therefore, this information is not provided to cause undue concern; rather, it is to raise your awareness and promote discussion with your health care provider regarding the presence of dense breast tissue in addition to other risk factors. Early detection of cancer is very important. We also understand recommendations regarding breast cancer screening are controversial. Please discuss with your primary care provider which strategy is best for you and whether a mammogram is right for you. Your imaging studies and report will be kept on file at [facility] as part of your permanent medical record and are available for your continuing care. Thank you for allowing us to help in meeting your health care needs. Sincerely, Dr. Hanson Interpreting Radiologist [facility] (Normal over 40) Normal [facility] CNPNon 09-26-2023 CNPN Telephone (CDLBME) MEGHAN CULP ([id number]) 1970 F Date Time Provider Department 09/26/23 FRANCESCA AREVALO CDLBME During your visit today, we recorded the following information about you: Francesca Arevalo, RN 09/26/2023 3:03 PM Signed Spoke to pt regarding reminder and instructions for stress test tomorrow. This included where to check in, length of test and no caffeine for 12 hours prior to test, Allergies As of Date: 09/26/2023 Noted Allergy Reaction ADHESIVE TAPE-SILICONES 09/13/2023 2 - Rash Comments: Pt gets blistering Date Reviewed: 09/13/2023 Reviewed by: Liliam Lopez MA - Fully Assessed Reason for Visit: Reminder Call [[id number]] Prescriptions as of 09/26/2023 - atorvastatin (LIPITOR) 20 mg tablet Take 1 tablet by mouth every afternoon. - traMADol (ULTRAM) 50 mg tablet Take 50 mg by mouth two times a day as needed for pain. - valACYclovir (VALTREX) 500 mg tablet TAKE 1 TABLET BY MOUTH TWICE A DAY FOR 3 DAYS - PARoxetine (PAXIL) 20 mg tablet Take 20 mg by mouth once daily. - Black Cohosh 200 mg cap 1 a day Problem List As Of Date 09/26/2023 Noted Resolved H/O breast augmentation [Z98.82] 08/05/2015 Well female exam with routine gynecological exa*08/05/2015 Visit for screening mammogram [Z12.31] 08/05/2015 Depression [F32.A] 01/17/2018 Anxiety [F41.9] 01/17/2018 Encounter Status:Closed by FRANCESCA AREVALO on 09/26/23 Normal [facility] SCREENING W TOMOon 09-24 BARBRA SCREENING W BRENDA * * *Final Report* * * DATE OF EXAM: Sep 25 2023 2:56PM ANTHONY 0582 - [facility] SCREENING W BRENDA / PROCEDURE REASON: Z.31-Encounter for screening mammogram for malignant neoplasm of breast * * * * Physician Interpretation * * * * #[id number] - [facility] SCREENING W BRENDA BILATERAL DIGITAL SCREENING MAMMOGRAM TOMOSYNTHESIS WITH CAD: 09/25/2023 HISTORY: -Encounter For Screening Mammogram For Malignant Neoplasm Of Breast / Screening Mammogram-Patient reports NO symptoms. /SEE TECH NOTE. RESULT: TECHNIQUE: The study was acquired using full field digital technology and interpreted from soft copy. Digital Breast Tomosynthesis (DBT) images were obtained and used to assist in the interpretation of this examination. Current study was also evaluated with a Computer Aided Detection (CAD). Comparison is made to exams dated: 10/19/2021 mammogram, 01/01/2020 mammogram, and 12/19/2018 mammogram - [facility]. The breasts are heterogeneously dense, which may obscure small masses. Postsurgical changes from interval bilateral implant removal and mastopexy. No significant masses, calcifications, or other findings are seen in either breast. There has been no significant interval change. IMPRESSION: BENIGN FINDING There is no mammographic evidence of malignancy. A 1 year screening mammogram is recommended. Imtiaz Hanson M.D., lm/hai:09/26/2023 14:43:26 Bank Secrecy Act Officer(s): RIK Ochoa)(M), [facility] letter sent: Normal over 40 Mammogram BI-RADS: 2 Benign finding Multiple national specialty organizations have released breast cancer screening guidelines for women at average risk for developing breast cancer - guidelines that are based on both evidence and opinion, yet differ on when to start and how often to screen for breast cancer. With representation from Breast Imaging, Internal Medicine, Women's Health, Family Medicine, and Medical/Surgical Oncology, the [facility] has carefully reviewed the data and reached the following consensus: 1) All women should engage in shared decision-making with their providers to decide when to start and how often to screen; 2) All women should have the opportunity to start screening mammography at age 40; 3) For women ages 45-55, we recommend annual screening mammograms; 4) For women ages 55 and over, we support both the transition from an annual to a biennial interval if this aligns more with patient's values and preferences, or continuation with annual screening; 5) All women should discuss with their providers when to stop screening mammograms. Assistant Community Manager: Hai Transcribe Date/Time: Sep 25 2023 2:40P Dictated by : IMTIAZ HANSON MD This examination was interpreted and the report reviewed and electronically signed by: IMTIAZ HANSON MD on Sep 26 2023 2:43PM EST [id number] Normal [facility] ECHOon 09-19-2023 CONCLUSIONS: - Technically difficult exam due to breast implants. - Exam indication: Chest Pain - The left ventricle is normal in size. Left ventricular systolic function is normal. EF = 65 5% (2D biplane). Normal left ventricular diastolic function. - The right ventricle is normal in size. Right ventricular systolic function is normal. - There are no significant valvular abnormalities. - The patient has not had a prior CC echocardiographic exam for comparison. * * * Final * * * [facility] Echocardiography Report: Transthoracic Echo [facility] Date of service: 09/19/2023 7:05:05 AM Ordering physician: BARBIE PEARL Indication: Chest Pain Technologist: Deisy Park [facility] Interpreting physician: Cuauhtemoc Sampson MD PATIENT: Name: MS. MEGHAN CULP : 1970 Age: 52 years Gender: F Primary rhythm: sinus. Height: 165.10 cm BSA: 1.98 m Weight: 85.73 kg BMI: 31.5 kg/m Heart rate 59 bpm Blood pressure 106/55 mmHg Technically difficult exam due to breast implants. Color Doppler was utilized to interrogate the cardiac valves assessed and spectral Doppler was utilized to determine the flow velocities and pressure gradients reported in this exam. Myocardial strain analysis was performed in this exam to aid in the assessment of cardiac function. MEASUREMENTS: Value Indexed Normal Max aortic dimension 2.8 cm Ao < 3.8 Left atrial volume 62 ml (biplane A-L) 31 ml/m Tomas <= 34 LV ID (diastole) 4.6 cm (2D) 2.32 cm/m LV ID (systole) 2.8 cm (2D) 1.41 cm/m IVS, leaflet tips 1.0 cm (2D) Posterior wall thickness 1.1 cm (2D) Left ventricular mass 173 g (2D) 87 g/m Global peak long strain -26.4 % LV stroke volume 65 ml (2D biplane) LV end diastolic volume 101 ml (2D biplane) 51.0 ml/m 29<=EDVi<62 LV end systolic volume 36 ml (2D biplane) 18.0 ml/m Ejection Fraction 65 % (2D biplane) EF > 54 FINDINGS: LEFT VENTRICLE The left ventricle is normal in size. Left ventricular systolic function is normal. Global LV myocardial strain is normal. Normal left ventricular diastolic function. Mitral annular lateral E/e': 4.1. Mitral annular septal E/e': 8.0. Wall Motion: All scored segments are normal. RIGHT VENTRICLE The right ventricle is normal in size. Right ventricular systolic function is normal. RV systolic tissue Doppler velocity is 10.0 cm/s. Tricuspid annular displacement is 1.8 cm. Estimated right ventricular systolic pressure is 15 mmHg consistent with normal pulmonary artery pressures. Estimated right atrial pressure is 3 mmHg based on IVC assessment. LEFT ATRIUM The left atrial cavity is normal in size. Pulmonary Veins: The pulmonary venous pattern showed normal systolic flow. RIGHT ATRIUM The right atrial cavity is normal in size. Inferior Vena Cava: The inferior vena cava appears normal measuring 2.0 cm. The vessel decreases greater than 50 percent with inspiration. MITRAL VALVE The mitral valve leaflets are structurally normal. There is no mitral stenosis. There is no mitral valve regurgitation. The pressure half time is 54 msec. The peak mitral E/A ratio is 0.88. The average mitral E/e' ratio is 6.1. The mitral flow deceleration time is 185 msec. TRICUSPID VALVE The tricuspid valve leaflets are structurally normal. There is trace tricuspid valve regurgitation. AORTIC VALVE The aortic valve cusps are structurally normal. There is no aortic valve stenosis. There is no aortic valve regurgitation. Tricuspid aortic valve. PULMONIC VALVE The pulmonic valve cusps are structurally normal. There is no pulmonic valve regurgitation. AORTA The visualized aorta is normal in size. Measurements - Sinus: 2.7 cm. Mid ascending aorta 2.8 cm. PULMONARY ARTERIES The pulmonary arteries are normal. INTERATRIAL SEPTUM The interatrial septum is normal. INTERVENTRICULAR SEPTUM The interventricular septum is normal. PERICARDIUM The pericardium is normal. There is no pericardial effusion. [facility] Echocardiography Echocardiography Rep ort: Transthoracic Echo [facility] Date of service: 09/19/2023 7:05:05 AM Ordering physician: BARBIE PEARL Indication: Chest Pain Technologist: Deisy Park [facility] Interpreting physician: Cuauhtemoc Sampson MD PATIENT: Name: MS. MEGHAN CULP : 1970 Age: 52 years Gender: F Primary rhythm: sinus. Height: 165.10 cm BSA: 1.98 m Weight: 85.73 kg BMI: 31.5 kg/m Heart rate 59 bpm Blood pressure 106/55 mmHg Technically difficult exam due to breast implants. Color Doppler was utilized to interrogate the cardiac valves assessed and spectral Doppler was utilized to determine the flow velocities and pressure gradients reported in this exam. Myocardial strain analysis was performed in this exam to aid in the assessment of cardiac function. MEASUREMENTS: Value Indexed Normal Max aortic dimension 2.8 cm Ao < 3.8 Left atrial volume 62 ml (biplane A-L) 31 ml/m Tomas <= 34 LV ID (diastole) 4.6 cm (2D) 2.32 cm/m LV ID (systole) 2.8 cm (2D) 1.41 cm/m IVS, leaflet tips 1.0 cm (2D) Posterior wall thickness 1.1 cm (2D) Left ventricular mass 173 g (2D) 87 g/m Global peak long strain -26.4 % LV stroke volume 65 ml (2D biplane) LV end diastolic volume 101 ml (2D biplane) 51.0 ml/m 29<=EDVi<62 LV end systolic volume 36 ml (2D biplane) 18.0 ml/m Ejection Fraction 65 % (2D biplane) EF > 54 FINDINGS: LEFT VENTRICLE The left ventricle is normal in size. Left ventricular systolic function is normal. Global LV myocardial strain is normal. Normal left ventricular diastolic function. Mitral annular lateral E/e': 4.1. Mitral annular septal E/e': 8.0. Wall Motion: All scored segments are normal. RIGHT VENTRICLE The right ventricle is normal in size. Right ventricular systolic function is normal. RV systolic tissue Doppler velocity is 10.0 cm/s. Tricuspid annular displacement is 1.8 cm. Estimated right ventricular systolic pressure is 15 mmHg consistent with normal pulmonary artery pressures. Estimated right atrial pressure is 3 mmHg based on IVC assessment. LEFT ATRIUM The left atrial cavity is normal in size. Pulmonary Veins: The pulmonary venous pattern showed normal systolic flow. RIGHT ATRIUM The right atrial cavity is normal in size. Inferior Vena Cava: The inferior vena cava appears normal measuring 2.0 cm. The vessel decreases greater than 50 percent with inspiration. MITRAL VALVE The mitral valve leaflets are structurally normal. There is no mitral stenosis. There is no mitral valve regurgitation. The pressure half time is 54 msec. The peak mitral E/A ratio is 0.88. The average mitral E/e' ratio is 6.1. The mitral flow deceleration time is 185 msec. TRICUSPID VALVE The tricuspid valve leaflets are structurally normal. There is trace tricuspid valve regurgitation. AORTIC VALVE The aortic valve cusps are structurally normal. There is no aortic valve stenosis. There is no aortic valve regurgitation. Tricuspid aortic valve. PULMONIC VALVE The pulmonic valve cusps are structurally normal. There is no pulmonic valve regurgitation. AORTA The visualized aorta is normal in size. Measurements - Sinus: 2.7 cm. Mid ascending aorta 2.8 cm. PULMONARY ARTERIES The pulmonary arteries are normal. INTERATRIAL SEPTUM The interatrial septum is normal. INTERVENTRICULAR SEPTUM The interventricular septum is normal. PERICARDIUM The pericardium is normal. There is no pericardial effusion. CONCLUSIONS: - Technically difficult exam due to breast implants. - Exam indication: Chest Pain - The left ventricle is normal in size. Left ventricular systolic function is normal. EF = 65 5% (2D biplane). Normal left ventricular diastolic function. - The right ventricle is normal in size. Right ventricular systolic function is normal. - There are no significant valvular abnormalities. - The patient has not had a prior CC echocardiographic exam for comparison. * * * Final * * * [facility] [employer] : [id number] [employer] [facility] 09-13-2023 [facility] Office Visit (CARDMM ) MEGHAN CULP ([id number]) 1970 F Date Time Provider Department 09/13/23 10:40 AM BARBIE PEARL During your visit today, we recorded the following information about you: Pulse Blood pressure Weight Height 65/minute 104/68 85.7 kg 1.651 m Barbie Pearl MD 09/13/2023 3:58 PM Signed [facility] [place] SECTION OF REGIONAL CARDIOLOGY OUTPATIENT VISIT DATE 09/13/2023 OUTPATIENT VISIT TYPE NEW PRIMARY CARE PHYSICIAN: Lashawn Bryant ([facility]) [address] [address] Patient is being seen at the request of the referring physician for Post ER visit follow up HISTORY OF PRESENT ILLNESS: Ms. Culp is a 52 year old pleasant highly active female, history of Factor V Leiden mutation, hypothyroidism, who presents for post ER visit follow up. She presented to the ED on 08/31/23 with chest pain which woke her up from sleep. Radiated to the neck and jaw and bilateral shoulders. She went back to sleep. When she woke, she still experienced L sided hest and shoulder pain, however less intense. Episode lasted approximately 1.5 hrs long. hstrop 8--> <6. EKG showed sinus bradycardia HR 48. She was discharged home. She denies SOB, palpitations, orthopnea, PND, leg swelling, lightheadedness, syncope. She engages in [employer] [place] [employer] and exercises 3-4x week. She runs 2 miles on the treadmill @5-6mph, exercises on the erg and lifts light weights. She runs 5k races 6x per year. She also walks 3 miles 5x per week. Steady state exercise HR in the 170s. Her father was diagnosed with cardiomyopathy. He is planned for ICD placement this week. No history of CAD to her knowledge. She is planning to run a 5k around September 27. 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 08/28/2012 and bilat salpingectomy FABRICIO 2009 [facility] hysteroscopy SALPINGECTOMY BTL Social History Tobacco Use Smoking status: Never Smokeless tobacco: Never Substance Use Topics Alcohol use: Yes Alcohol/week: 4.0 standard drinks of alcohol Types: 4 Glasses of Wine (5oz) per week Drug use: No FAMILY HISTORY Problem Relation Age of Onset Cancer Mother Uterine cancer Arrhythmia Mother A-fib Cardiomyopathy Father other (ICD) Father other (other) Brother valve disorder ALLERGIES Allergen Reactions Adhesive Tape-Silic* Rash Pt gets blistering CURRENT MEDICATIONS: atorvastatin (LIPITOR) 20 mg tablet Take 1 tablet by mouth every afternoon. traMADol (ULTRAM) 50 mg tablet Take 50 mg by mouth two times a day as needed for pain. valACYclovir (VALTREX) 500 mg tablet TAKE 1 TABLET BY MOUTH TWICE A DAY FOR 3 DAYS (Patient taking differently: TAKE 1 TABLET BY MOUTH TWICE A DAY FOR 3 DAYS PRN) PARoxetine (PAXIL) 20 mg tablet Take 20 mg by mouth once daily. Black Cohosh 200 mg cap 1 a day (Patient not taking: Reported on 09/13/2023) PHYSICAL EXAMINATION: BP 104/68 Pulse 65 Ht 165.1 cm (5' 5) Wt 85.7 kg (189 lb) SpO2 98% BMI 31.45 kg/m? General: Appears comfortable in no apparent cardiopulmonary distress Neck: No JVD, no bruits CVS: S1, S2, No m/r/g Chest: CTAB Abd: Soft, nontender, no masses, BS present Ext: No pedal edema, pedal pulses 2+ bilaterally Neuro: No focal neurological deficits CARDIOVASCULAR MEDICINE TESTING: Last EKG Result Conclusion EKG Collected: 08/31/2023 9:53 AM (Final result) Impression: SINUS BRADYCARDIA LEFT AXIS DEVIATION ABNORMAL ECG NO PREVIOUS ECGS AVAILABLE Confirmed by MD MATHIAS VINAY ([id number]) on 08/31/2023 2:59:43 PM ASSESSMENT/PLAN: 1. Other chest pain - ICD9: 786.59, ICD10: R07.89 - Arrange for echocardiogram and nuclear stress test. Barbie Pearl MD, [facility] Non invasive and Sports Supervisor Sewing Department Allergies As of Date: 09/13/2023 Noted Allergy Reaction ADHESIVE TAPE-SILICONES 09/13/2023 2 - Rash Comments: Pt gets blistering Date Reviewed: 09/13/2023 Reviewed by: Liliam Lopez MA - Fully Assessed Reason for Visit: New Patient [172] Cmt: New Pt: Pt had recent episode of chest pain. Describes it as starting as sharp and turned into deep ache. Radiated into left shoulder. Primary Visit Diagnosis:Other chest pain [R07.89] Other Visit Diagnosis:Chest pain, unspecified type [R07.9] Order(s):ECHO [285786] Order #: [id number]: 1 FUTURE NM CARDIAC PERF STRESS/EXERCISE [1 (more content not included)... Normal [facility] 08-31-2023 ALLIED HEALTH HNO ID: [id number] Author: SAMUEL RODRIGUEZ RT(R) Service: Radiology Author Type: Manager Diesel Type: Allied Health Filed: 08/31/2023 11:43 Note Text: Radiology Service Progress Note PATIENT NAME: Meghan Culp DATE OF SERVICE: August 31, 2023 TIME: 11:43 AM PATIENT IDENTITY VERIFICATION COMPLETED USING TWO (2) IDENTIFIERS: Name and Date of confirmed by patient verbally. FALL SCREENING: Has the patient had 2 falls in the last year or 1 fall with injury or currently using an Ambulatory Assistive Device (Walker, Cane, Wheelchair, Crutches, etc.)? Emergency Room Patient: Screened in ED PATIENT GENDER DATA: Female. status: : No status: NO. PATIENT RELEVANT IMPLANT DATA REVIEWED: Yes PATIENT PRESENTS WITH AN IMPLANTABLE OR ATTACHED BAND STRAIGHTENER: No RADIOLOGY DEPARTMENT: General X-ray: Exam(s) Completed: Chest X-Ray PERIPHERAL IV DATA: Not applicable SIGNED BY: RT Eugene(R) August 31, 2023 11:43 AM Normal [facility] CBC W Auto Differential pane l (Bld)on 08-31-2023 Basophils (Bld) [#/Vol] 0.03 10*3/uL Normal <0.11 [facility] Comment on above: Order Comment: Speci men Type: BLOOD SPECIMENOrdering Facility: [facility] Address: [address] [place] [address] Performed By: #### 5 7021-8 ####[facility] [place] LABCLIA [id number] [place] [address] [place] Basophils/100 WBC (Bld) 0.7 % Normal [facility] Comment on above: Order Comment: Speci men Type: BLOOD SPECIMENOrdering Facility: [facility] Address: [address] [place] [address] Performed By: #### 5 7021-8 ####[facility] [place] LABCLIA [id number] [place] [address] [place] Differential cell count method Nom (Bld) Auto Normal [facility] Comment on above: Order Comment: Speci men Type: BLOOD SPECIMENOrdering Facility: [facility] Address: [address] [place] [address] Performed By: #### 5 7021-8 ####[facility] [place] LABCLIA [id number] [place] [address] [place] Eosinophils (Bld) [#/Vol] 0.06 10*3/uL Normal <0.46 [facility] Comment on above: Order Comment: Speci men Type: BLOOD SPECIMENOrdering Facility: [facility] Address: [address] [place] [address] Performed By: #### 5 7021-8 ####[facility] [place] LABCLIA [id number] [place] [address] [place] Eosinophils/100 WBC (Bld) 1.4 % Normal [facility] Comment on above: Order Comment: Speci men Type: BLOOD SPECIMENOrdering Facility: [facility] Address: [address] [place] [address] Performed By: #### 5 7021-8 ####[facility] [place] LABCLIA [id number] [place] [address] [place] Erythrocyte distribution width (RBC) [Ratio] 12.7 % Normal 11.5-15.0 [facility] Comment on above: Order Comment: Speci men Type: BLOOD SPECIMENOrdering Facility: [facility] Address: [address] [place] [address] Performed By: #### 5 7021-8 ####[facility] [place] LABCLIA [id number] [place] [address] [place] Hematocrit (Bld) [Volume fraction] 40.4 % Normal 36.0-46.0 [facility] Comment on above: Order Comment: Speci men Type: BLOOD SPECIMENOrdering Facility: [facility] Address: [address] [place] [address] Performed By: #### 5 7021-8 ####[facility] [place] LABCLIA [id number] [facility] [place] [address] [place] Hemoglobin (Bld) [Mass/Vol] 13.9 g/dL Normal 11.5-15.5 [facility] Comment on above: Order Comment: Speci men Type: BLOOD SPECIMENOrdering Facility: [facility] Address: [address] [place] [address] Performed By: #### 5 7021-8 ####[facility] [place] LABCLIA [id number] [place] [address] [place] Immature granulocytes (Bld) [#/Vol] 10*3/uL Normal <0.10 [facility] Comment on above: Order Comment: Speci men Type: BLOOD SPECIMENOrdering Facility: [facility] Address: [address] [place] [address] Performed By: #### 5 7021-8 ####[facility] [place] LABCLIA [id number] [place] [address] [place] [facility] Immature granulocytes/100 WBC (Bld) 0.2 % Normal [facility] Comment on above: Order Comment: Speci men Type: BLOOD SPECIMENOrdering Facility: [facility] Address: [address] [place] [address] Performed By: #### 5 7021-8 ####[facility] [place] LABCLIA [id number] [place] [address] [place] [facility] Lymphocytes (Bld) [#/Vol] 1.79 10*3/uL Normal 1.00-4.00 [facility] Comment on above: Order Comment: Speci men Type: BLOOD SPECIMENOrdering Facility: [facility] Address: [address] [place] [address] Performed By: #### 5 7021-8 ####[facility] [place] LABCLIA [id number] [place] [address] [facility] Lymphocytes/100 WBC (Bld) 42.5 % Normal [facility] Comment on above: Order Comment: Speci men Type: BLOOD SPECIMENOrdering Facility: [facility] Address: [address] [place] [address] Performed By: #### 5 7021-8 ####[facility] [place] LABCLIA [id number] [place] [address] [place] MCH (RBC) [Entitic mass] 31.1 pg Normal 26.0-34.0 [facility] Comment on above: Order Comment: Speci men Type: BLOOD SPECIMENOrdering Facility: [facility] Address: [address] [place] [address] Performed By: #### 5 7021-8 ####[facility] [place] LABCLIA [id number] [place] [address] [facility] [place] MCHC (RBC) [Mass/Vol] 34.4 g/dL Normal 30.5-36.0 [facility] Comment on above: Order Comment: Speci men Type: BLOOD SPECIMENOrdering Facility: [facility] Address: [address] [place] [address] Performed By: #### 5 7021-8 ####[facility] [place] LABCLIA [id number] [place] [address] [place] MCV (RBC) [Entitic vol] 90.4 fL Normal 80.0-100.0 [facility] Comment on above: Order Comment: Speci men Type: BLOOD SPECIMENOrdering Facility: [facility] Address: [address] [place] [address] Performed By: #### 5 7021-8 ####[facility] [place] LABCLIA [id number] [place] [address] [place] Monocytes (Bld) [#/Vol] 0.35 10*3/uL Normal <0.87 [facility] Comment on above: Order Comment: Speci men Type: BLOOD SPECIMENOrdering Facility: [facility] Address: [address] [place] [address] Performed By: #### 5 7021-8 ####[facility] [place] LABCLIA [id number] [place], [place] [address] [place] [address] Monocytes/100 WBC (Bld) 8.3 % Normal [facility] Comment on above: Order Comment: Speci men Type: BLOOD SPECIMENOrdering Facility: [facility] Address: [address] [place] [address] Performed By: #### 5 7021-8 ####[facility] [place] LABCLIA [id number] [place] [address] [place] Neutrophils (Bld) [#/Vol] 1.97 10*3/uL Normal 1.45-7.50 [facility] Comment on above: Order Comment: Speci men Type: BLOOD SPECIMENOrdering Facility: [facility] Address: [address] [place] [address] Performed By: #### 5 7021-8 ####[facility] [place] LABCLIA [id number] [facility] [place] [address] [place] Neutrophils/100 WBC (Bld) 46.9 % Normal [facility] Comment on above: Order Comment: Speci men Type: BLOOD SPECIMENOrdering Facility: [facility] Address: [address] [place] [address] Performed By: #### 5 7021-8 ####[facility] [place] LABCLIA [id number] [place] [address] [place] Nucleated RBC (Bld) [#/Vol] Normal [facility] Comment on above: Order Comment: Speci men Type: BLOOD SPECIMENOrdering Facility: [facility] Address: [address] [place] [address] Performed By: #### 5 7021-8 ####[facility] [place] LABCLIA [id number] [facility] [place] [address] [place] Nucleated RBC/100 WBC (Bld) [Ratio] Normal [facility] Comment on above: Order Comment: Speci men Type: BLOOD SPECIMENOrdering Facility: [facility] Address: [address] [place] [address] Performed By: #### 5 7021-8 ####[facility] [place] LABCLIA [id number] [facility] [place] [address] [place] Platelet mean volume (Bld) [Entitic vol] 11.2 fL Normal 9.0-12.7 [facility] Comment on above: Order Comment: Speci men Type: BLOOD SPECIMENOrdering Facility: [facility] Address: [address] [place] [address] Performed By: #### 5 7021-8 ####[facility] [place] LABCLIA [id number] [facility] [place] [address] [place] Platelets (Bld) [#/Vol] 215 10*3/uL Normal 150-400 [facility] Comment on above: Order Comment: Speci men Type: BLOOD SPECIMENOrdering Facility: [facility] Address: [address] [place] [address] Performed By: #### 5 7021-8 ####[facility] [place] LABCLIA [id number] [place] [address] [facility] RBC (Bld) [#/Vol] 4.47 10*6/uL Normal 3.90-5.20 [facility] Comment on above: Order Comment: Speci men Type: BLOOD SPECIMENOrdering Facility: [facility] Address: [address] [place] [address] Performed By: #### 5 7021-8 ####[facility] LABCLIA [id number] [place] [address] [facility] WBC (Bld) [#/Vol] 4.21 10*3/uL Normal 3.70-11.00 [facility] Comment on above: Order Comment: Speci men Type: BLOOD SPECIMENOrdering Facility: [facility] Address: [address] [place] [address] Performed By: #### 5 7021-8 ####[facility] LABCLIA [id number] [place] [address] [facility] Comprehensive metabolic 2000 panelon 08-31-2023 Albumin [Mass/Vol] 4.4 g/dL Normal 3.9-4.9 [facility] Comment on above: Order Comment: Speci men Type: BLOOD SPECIMENOrdering Facility: [facility] Address: [address] [place] [address] Performed By: #### 2 4323-8, 3040-3 ####[facility] LABCLIA [id number] [place] [address] [facility] ALP [Catalytic activity/Vol] 64 U/L Normal 34-123 [facility] Comment on above: Order Comment: Speci men Type: BLOOD SPECIMENOrdering Facility: [facility] Address: [address] [place] [address] Performed By: #### 2 4323-8, 3040-3 ####[facility] [place] LABCLIA [id number] [place] [address] [place] ALT With P-5'-P [Catalytic activity/Vol] 18 U/L Normal 7-38 [facility] Comment on above: Order Comment: Speci men Type: BLOOD SPECIMENOrdering Facility: [facility] Address: [address] [place] [address] Performed By: #### 2 4323-8, 3040-3 ####[facility] [place] LABCLIA [id number] [place] [address] [place] Anion gap [Moles/Vol] 11 mmol/L Normal 8-15 [facility] Comment on above: Order Comment: Speci men Type: BLOOD SPECIMENOrdering Facility: [facility] Address: [address] [place] [address] Performed By: #### 2 4323-8, 3040-3 ####[facility] [place] LABCLIA [id number] [place] [address] [place] AST With P-5'-P [Catalytic activity/Vol] 19 U/L Normal 13-35 [facility] Comment on above: Order Comment: Speci men Type: BLOOD SPECIMENOrdering Facility: [facility] Address: [address] [place], [place] [address] Performed By: #### 2 4323-8, 3040-3 ####[facility] [place] LABCLIA [id number] [place] [address] [place] Bilirubin [Mass/Vol] 0.5 mg/dL Normal 0.2-1.3 [facility] Comment on above: Order Comment: Speci men Type: BLOOD SPECIMENOrdering Facility: [facility] Address: [address] [place] [address] Performed By: #### 2 4323-8, 3040-3 ####[facility] [place] LABCLIA [id number] [place] [address] [place] Calcium [Mass/Vol] 9.5 mg/dL Normal 8.5-10.2 [facility] Comment on above: Order Comment: Speci men Type: BLOOD SPECIMENOrdering Facility: [facility] Address: [address] [place] [address] Performed By: #### 2 4323-8, 3040-3 ####[facility] [place] LABCLIA [id number] [facility] [place] [address] [place] Chloride [Moles/Vol] 104 mmol/L Normal 98-107 [facility] Comment on above: Order Comment: Speci men Type: BLOOD SPECIMENOrdering Facility: [facility] Address: [address] [place] [address] Performed By: #### 2 4323-8, 3040-3 ####[facility] [place] LABCLIA [id number] [place] [address] [place] CO2 [Moles/Vol] 25 mmol/L Normal 22-30 [facility] Comment on above: Order Comment: Speci men Type: BLOOD SPECIMENOrdering Facility: [facility] Address: [address] [place] [address] Performed By: #### 2 4323-8, 3040-3 ####[facility] [place] LABCLIA [id number] [place] [address] [place] Creatinine [Mass/Vol] 0.57 mg/dL Low 0.58-0.96 [facility] Comment on above: Order Comment: Speci men Type: BLOOD SPECIMENOrdering Facility: [facility] Address: [address] [place] [address] Performed By: #### 2 4323-8, 3040-3 ####[facility] [place] LABCLIA [id number] [place] [address] [facility] Creatinine and Glomerular filtration rate.predicted panel (S/P/Bld) 108 mL/min/1.73m??? Normal >=60 [facility] Comment on above: Order Comment: Speci men Type: BLOOD SPECIMENOrdering Facility: [facility] Address: [address] [place] [address] Result Comment: Ester mated Glomerular Filtration Rate (eGFR) is calculated using the 2020 CKD-EPI creatinine equation. This equation utilizes serum creatinine, sex, and age as parameters. The creatinine assay has traceable calibration to isotope dilution-mass spectrometry. Refer to KDIGO guidelines for clinical interpretation. In patients with unstable renal function, e.g. those with acute kidney injury, the eGFR may not accurately reflect actual GFR. Performed By: #### 2 4323-8, 3039-3 ####[facility] LABCLIA [id number] [place] [address] [place] Glucose [Mass/Vol] 95 mg/dL Normal 74-99 [facility] Comment on above: Order Comment: Cameron matamoros Type: BLOOD SPECIMENOrdering Facility: [facility] Address: [address] [place] [address] Result Comment: The [place] Diabetes Association (ADA) provides guidance for cutoff values for fasting glucose and random glucose. The ADA defines fasting as no caloric intake for at least 8 hours. Fasting plasma glucose results between 100 to 125 mg/dL indicate increased risk for diabetes (prediabetes). Fasting plasma glucose results greater than or equal to 126 mg/dL meet the criteria for diagnosis of diabetes. In the absence of unequivocal hyperglycemia, results should be confirmed by repeat testing. In a patient with classic symptoms of hyperglycemia or hyperglycemic crisis, random plasma glucose results greater than or equal to 200 mg/dL meet the criteria for diagnosis of diabetes. Reference: Standards of Medical Care in Diabetes 2016, [place] Diabetes Association. Diabetes Care. 2016.39(Suppl 1). Performed By: #### 2 4323-8, 3039-3 ####[facility] [facility] LABCLIA [id number] [place] [address] [place] Potassium [Moles/Vol] 4.0 mmol/L Normal 3.7-5.1 [facility] Comment on above: Order Comment: Cameron matamoros Type: BLOOD SPECIMENOrdering Facility: [facility] Address: [address] [place] [address] Performed By: #### 2 4323-8, 3039-3 ####[facility] LABCLIA [id number] [place] [address] [place] Protein [Mass/Vol] 7.1 g/dL Normal 6.3-8.0 [facility] Comment on above: Order Comment: Speci men Type: BLOOD SPECIMENOrdering Facility: [facility] Address: [address] [place] [address] Performed By: #### 2 4323-8, 3040-3 ####[facility] [place] LABCLIA [id number] [place] [address] [facility] Sodium [Moles/Vol] 140 mmol/L Normal 136-144 [facility] Comment on above: Order Comment: Speci men Type: BLOOD SPECIMENOrdering Facility: [facility] Address: [address] [place] [address] Performed By: #### 2 4323-8, 3040-3 ####[facility] [place] LABCLIA [id number] [place] [address] [facility] Urea nitrogen [Mass/Vol] 11 mg/dL Normal 7-21 [facility] Comment on above: Order Comment: Speci men Type: BLOOD SPECIMENOrdering Facility: [facility] Address: [address] [place] [address] Performed By: #### 2 4323-8, 3040-3 ####[facility] [place] LABCLIA [id number] [place] [address] [facility] D dimer FEU PPP-mCncon 08-30 Fibrin D-dimer FEU (PPP) [Mass/Vol] 290 ng/mL FEU Normal <500 [facility] Comment on above: Order Comment: Speci men Type: BLOOD SPECIMEN [facility] Address: [address] [place] [address] Performed By: #### 4 8065-7 #### [facility] [place] [facility] CLIA [id number] [facility] [place] [address] [facility] ED NOTEon 08-31-2023 ED NOTE HNO ID: [id number] Author: HEATHER, BERNARDA, RN Service: Emergency Medicine Author Type: Registered Nurse Type: ED Notes Filed: 09/01/2023 21:57 Note Text: Emergency Services: ED Call Back Questionnaire SERVICE DATE: 08/31/2023 Are you feeling better? Yes Any questions about discharge instructions and follow-up care? No Were you able to make a follow up appointment? No, referred to appointment hotline Do you have any further questions? No Is there anything that we could have done differently to improve your ED visit? No SIGNATURE: Bernarda Humphreys RN PATIENT NAME: Meghan Culp DATE: September 01, 2023 TIME: 9:57 PM Normal [facility] ED NOTE HNO ID: [id number] Author: VICKIE SHELLEY RN Service: Emergency Medicine Author Type: Registered Nurse Type: ED Notes Filed: 08/31/2023 12:44 Note Text: Patient is alert, talkative, no distress. States she is ready to go home and feels better. Patient instructed to follow up with her doctor. Patient instructed to follow up with PCP, return with any new, worsening, or recurrent symptoms. Verbalizes understanding of all instructions. Ambulates with ease to lobby, no distress. Normal [facility] ED PROV NOTEon 08-31-2023 ED PROV NOTE HNO ID: [id number] Author: KING POTTS MD Service: Emergency Medicine Author Type: Physician Type: ED Provider Notes Filed: 08/31/2023 12:21 Note Text: ED Provider Note Patient Name: Meghan Culp : 1970 SERVICE DATE: 08/31/23 History Patient presents with: Chest Pain Patient is a 52-year-old female with no pertinent past medical history presenting to the emergency room for evaluation of chest pain. States that started last night and woke her from sleep. Initially very intense and sharp, radiating to her neck and jaw. It also went to both shoulders. She states that she has no cardiac history but does have a history of panic attacks, tried walking and calming herself down, and eventually did feel slightly better. She has a dull ache in her chest now and decided to get checked out in the ER. No recent heart catheterization or stress test. Patient denies recent travel, trauma, immobilization, hemoptysis, unilateral leg swelling, history of blood clots, cancer, surgery, and is not on exogenous estrogen. No fevers or chills or cough or cold symptoms. Denies other acute sick symptoms. Pain almost entirely resolved at this time. No alleviating or exacerbating symptoms. No associated shortness of breath. States she typically has a resting heart rate of around 49-51, measured several times a week at [place] [facility]. 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 08/28/2012 and bilat salpingectomy 2009 [facility] hysteroscopy SALPINGECTOMY BTL FAMILY HISTORY Problem Relation Age of Onset Cancer Mother Uterine cancer Social History Tobacco Use Smoking status: Never Smokeless tobacco: Never Substance and Sexual Activity Alcohol use: Yes Alcohol/week: 4.0 standard drinks of alcohol Types: 4 Glasses of Wine (5oz) per week Drug use: No Sexual activity: Yes Partners: Male control/protection: Tubal Ligation ALLERGIES No Known Allergies Review of Systems Constitutional: Negative for activity change, chills and fever. HENT: Negative for ear discharge and ear pain. Eyes: Negative for pain and discharge. Respiratory: Negative for cough and shortness of breath. Cardiovascular: Positive for chest pain. Negative for palpitations and leg swelling. Gastrointestinal: Negative for abdominal pain, diarrhea, nausea and vomiting. Genitourinary: Negative for dysuria and flank pain. Musculoskeletal: Negative for back pain and neck pain. Skin: Negative for color change, rash and wound. Neurological: Negative for dizziness, seizures and numbness. Psychiatric/Behavioral: Negative for self-injury and suicidal ideas. Physical Exam Vitals [08/31/23 0946] BP Pulse Temp Temp src Resp SpO2 Weight Height 143/75 55 36.4 ?C (97.6 ?F) -- 16 99 % 83.9 kg (185 lb) 1.651 m (5' 5) Physical Exam Vitals and nursing note reviewed. Constitutional: General: She is not in acute distress. Appearance: She is well-developed. She is not diaphoretic. HENT: Head: Normocephalic and atraumatic. Right Ear: External ear normal. Left Ear: External ear normal. Nose: Nose normal. Mouth/Throat: Mouth: Mucous membranes are moist. Pharynx: No oropharyngeal exudate or posterior oropharyngeal erythema. Comments: No posterior oropharynx swelling or exudate. Uvula midline without edema. No drooling or dysphonia. No woody induration underneath the tongue. Tongue is midline without elevation. Eyes: General: No scleral icterus. Right eye: No discharge. Left eye: No discharge. Pupils: Pupils are equal, round, and reactive to light. Cardiovascular: Rate and Rhythm: Regular rhythm. Bradycardia present. Pulses: Carotid pulses are 2+ on the right side and 2+ on the left side. Radial pulses are 2+ on the right side and 2+ on the left side. Dorsalis pedis pulses are 2+ on the right side and 2+ on the left side. Posterior tibial pulses are 2+ on the right side and 2+ on the left side. Heart sounds: Normal heart sounds. No murmur heard. No friction rub. No gallop. Pulmonary: Effort: Pulmonary effort is normal. No respiratory distress. Breath sounds: Normal breath sounds. No stridor. No wheezing or rales. Chest: Chest wall: No tenderness. Abdominal: Palpations: Abdomen is soft. There is no mass. Tenderness: There is no abdominal tenderness. There is no guarding. Comments: No pulsatile abdominal mass, no focal tenderness in the abdomen Musculoskeletal: Genera (more content not included)... Normal [facility] EKGon 08-31-2023 Electrocardiogram Ventricular Rate : 4 8 BPM Atrial Rate : 48 BPM P-R Interval : 146 ms QRS Duration : 84 ms Q-T Interval : 454 ms QTC Calculation(Bazett) : 405 ms Calculated P Meridian : 31 degrees Calculated R Meridian : -30 degrees Calculated T Meridian : 27 degrees SINUS BRADYCARDIA LEFT AXIS DEVIATION ABNORMAL ECG NO PREVIOUS ECGS AVAILABLE Confirmed by MD MATHIAS VINAY ([id number]) on 08/31/2023 2:59:43 PM NAME : MEGHAN MORENO PID : [id number] : 1970 Gender : Female Race : ORD : Procedure Date : Aug 31 2023 09:53:24 Edit Date : Aug 31 2023 14:59:44 Diagnosis: SINUS BRADYCARDIA LEFT AXIS DEVIATION ABNORMAL ECG NO PREVIOUS ECGS AVAILABLE Confirmed by MD MATHIAS VINAY ([id number]) on 08/31/2023 2:59:43 PM Test Reason : Location : 191 : [facility] ED Overread By : MD MATHIAS VINAY Edited By : MD MATHIAS VINAY Referred By : , Acquired by : PRIYANKA BUCKNER Normal [facility] Fibrin D-dimer FEU (PPP) [Ma ss/Vol]on 08-31-2023 D DIMER AGE-RELATED CUTOFF 540 ng/mL FEU Normal [facility] Comment on above: Order Comment: Cameron matamoros Type: BLOOD SPECIMEN Ordering Facility: [facility] Address: [address] [place] [address] Performed By: #### 4 8065-7 #### [facility] CLIA [id number] [address] [place] [address] [place] HIGH SENSITIVITY TROPONIN T (INITIAL)on 08-31-2023 Troponin T.cardiac High sensitivity method [Mass/Vol] 8 ng/L Normal <12 [facility] Comment on above: Order Comment: Cameron matamoros Type: BLOOD SPECIMENOrdering Facility: [facility] Address: [address] [place] [address] Result Comment: When assessing risk for acute coronary syndromes: In patients undergoing blood draw greater than or equal to 2 hours from symptom onset, with history of very low to moderate risk and non-ischemic ECG, an initial hs-Troponin T less than 12 ng/L AND a 1 hour delta hs-Troponin T less than 3 ng/L should be considered very low risk for 30 day MACE. Performed By: #### L [id number] ####[facility] LABCLIA [id number] [place] [address] [place] HIGH SENSITIVITY TROPONIN T (SECOND)on 08-31-2023 Troponin T.cardiac High sensitivity method [Mass/Vol] <6 Normal <12 [facility] Comment on above: Order Comment: Cameron matamoros Type: BLOOD SPECIMENOrdering Facility: [facility] Address: [address], [place] [address] Result Comment: When assessing risk for acute coronary syndromes: In patients undergoing blood draw greater than or equal to 2 hours from symptom onset, with history of very low to moderate risk and non-ischemic ECG, an initial hs-Troponin T less than 12 ng/L AND a 1 hour delta hs-Troponin T less than 3 ng/L should be considered very low risk for 30 day MACE. Performed By: #### L [id number] ####[facility] LABCLIA [id number] [place] [address] [facility] Lipase SerPl-cCncon 08-31-19 24 Lipase [Catalytic activity/Vol] 17 U/L Normal 16-61 [facility] Comment on above: Order Comment: Speci men Type: BLOOD SPECIMENOrdering Facility: [facility] Address: [address] [place] [address] Performed By: #### 2 4323-8, 3040-3 ####[facility] LABCLIA [id number] [place] [address] [facility] XR CHEST 2V FRONTAL/LATon XR CHEST 2V FRONTAL/LAT * * *Final Report* * * DATE OF EXAM: Aug 31 2023 11:42AM LDX 5291 - XR CHEST 2V FRONTAL/LAT / PROCEDURE REASON: Chest Pain * * * * Physician Interpretation * * * * EXAMINATION: CHEST RADIOGRAPH (2 VIEW FRONTAL and LATERAL) CLINICAL HISTORY: Chest Pain MQ: XC2_6 EXAM DATE/TIME: 08/31/2023 11:42 AM COMPARISON: 02/24/2021 RESULT: Lines, tubes, and devices: None. Lungs and pleura: No consolidation. No lung mass. No pleural effusion. No pneumothorax. Cardiomediastinal silhouette: Normal cardiomediastinal silhouette. Bones and soft tissues: Unremarkable. IMPRESSION: No acute radiographic abnormality. Assistant Community Manager: PSCB Transcribe Date/Time: Aug 31 2023 12:02P Dictated by : JAMAAL AVILA MD This examination was interpreted and the report reviewed and electronically signed by: JAMAAL AVILA MD on Aug 31 2023 12:03PM EST [id number] Normal [facility] CNPNon 08-22-2023 [facility] Telephone (OBGMEM) MEGHAN MORENO ([id number]) 1970 F Date Time Provider Department 08/22/23 [facility] OBEM During your visit today, we recorded the following information about you: Lico Campos 08/22/2023 11:16 AM Signed Patient is requesting an order for a mammogram. She has an upcoming Annual appt in October. Adithya Dixon LPN 08/22/2023 11:44 AM Signed Addended by: ADITHYA DIXON on: 08/22/2023 11:44 AM Modules accepted: Orders Allergies As of Date: 08/22/2023 (No Known Allergies) Date Reviewed: 05/07/2021 Reviewed by: Marah Garay MA - Fully Assessed Primary Visit Diagnosis:Encounter for screening mammogram for malignant neoplasm of breast [Z12.31] Order(s):BARBRA GUTIERREZ [[id number]] Order #: [id number] FUTURE Prescriptions as of 08/22/2023 - valACYclovir (VALTREX) 500 mg tablet TAKE 1 TABLET BY MOUTH TWICE A DAY FOR 3 DAYS - PARoxetine (PAXIL) 20 mg tablet Take 20 mg by mouth once daily. - Black Cohosh 200 mg cap 1 a day Problem List As Of Date 08/22/2023 Noted Resolved H/O breast augmentation [Z98.82] 08/05/2015 Well female exam with routine gynecological exa*08/05/2015 Visit for screening mammogram [Z12.31] 08/05/2015 Depression [F32.A] 01/17/2018 Anxiety [F41.9] 01/17/2018 Encounter Status:Closed by LICO CAMPOS on 08/22/23 Normal [facility] Anticardiolipin IgA,G,Mon ANTICARDIO IgA < 9 Normal 0-11 [facility] Comment on above: Result Comment: Nega tive: <12 Indeterminate: 12 - 20 Low-Med Positive: >20 - 80 High Positive: >80 Performed By: #### L 4500.5000, L300.3900, L500.4050, L100.0100, L501.9520, L500.4100, L501.6750, L3100.8408 #### [facility] [address] [place], [place], [id number] Anticardio.IgG < 9 Normal 0-14 [facility] Comment on above: Result Comment: Nega tive: <15 Indeterminate: 15 - 20 Low-Med Positive: >20 - 80 High Positive: >80 Performed By: #### L 4500.5000, L300.3900, L500.4050, L100.0100, L501.9520, L500.4100, L501.6750, L3100.8408 #### [facility] [address] [place], [address] Anticardio.IgM < 9 Normal 0-12 [facility] Comment on above: Result Comment: Nega tive: <13 Indeterminate: 13 - 20 Low-Med Positive: >20 - 80 High Positive: >80 Performed By: #### L 4500.5000, L300.3900, L500.4050, L100.0100, L501.9520, L500.4100, L501.6750, L3100.8408 #### [facility] [address] [place], [address] Fact V Leiden Mutationon FACTOR V LEIDEN Comment Abnormal . [facility] Comment on above: Result Comment: Resu lt: c.1601G>A (p.Pmj790Nur) - Detected, Heterozygous This result is associated with a 6- to 8-fold increased risk for venous thromboembolism. See Additional Clinical Information and Comments. Additional Clinical Information: Venous thromboembolism is a multifactorial disease influenced by genetic, environmental, and circumstantial risk factors. The c.1601G>A (p. Myi695Jta) variant in the F5 gene, commonly referred to as Factor V Leiden, is a genetic risk factor for venous thromboembolism. Heterozygous carriers of this variant have a 6- to 8-fold increased risk for venous thromboembolism. Individuals homozygous for this variant (ie, with a copy of the variant on each chromosome) have an approximately 80-fold increased risk for venous thromboembolism. Individuals who carry both a c.*97G>A variant in the F2 gene and Factor V Leiden have an approximately 20-fold increased risk for venous thromboembolism. Risks are likely to be even higher in more complex genotype combinations involving the F2 c.*97G>A variant and Factor V Leiden (PMID: 91544809). Additional risk factors include but are not limited to: deficiency of protein C, protein S, or antithrombin III, age, male sex, personal or family history of deep vein thromboembolism, smoking, surgery, prolonged immobilization, malignant neoplasm, tamoxifen treatment, raloxifene treatment, oral contraceptive use, hormone replacement therapy, and . Management of thrombotic risk and thrombotic events should follow established guidelines and fit the clinical circumstance. This result cannot predict the occurrence or recurrence of a thrombotic event. Comment: Genetic counseling is recommended to discuss the potential clinical implications of positive results, as well as recommendations for testing family members. Genetic Coordinators are available for health care providers to discuss results at [phone] ([phone]). Test Details: Variant Analyzed: c.1601G>A (p. Hqh184Uyl), referred to as Factor V Leiden Methods/Limitations: DNA analysis of the F5 gene (NM_000130.5) was performed by PCR amplification followed by restriction enzyme analysis. The diagnostic sensitivity is >99%. Results must be combined with clinical information for the most accurate interpretation. Molecular-based testing is highly accurate, but as in any laboratory test, diagnostic errors may occur. False positive or false negative results may occur for reasons that include genetic variants, blood transfusions, bone marrow transplantation, somatic or tissue-specific mosaicism, mislabeled samples, or erroneous representation of family relationships. This test was developed and its performance characteristics determined by [facility]. It has not been cleared or approved by the Food and Drug Administration. References: Devon S, Sun AK, Praneeth R, Radha WW, Ja BLANCO; [employer] Professional Practice and Guidelines Committee. Addendum: [employer] consensus statement on factor V Leiden mutation testing. Maryjo Med. 2020May 29. doi: 10.1038/e73156-781-60940-d. PMID: 69926887. Dwight WANG. Factor V Leiden Thrombophilia. 1998August 07 (Updated 2017Mar 30). In: Adalid MP, Marcellus HH, Lyle RA, et al., editors. Caden(R) (Internet). [place] ([place]): [facility]; 6569-8924. Available from: https://www.ncbi.nlm.nih.gov/books/XTW3550/ Rich S, Sun AK, Ronnell X, Ricky B, Sybil EB, Sienna P, Kristin CS; [employer] Laboratory Track And Field Coach Committee. Venous thromboembolism laboratory testing (factor V Leiden and factor II c.*97G>A), 2018 update: a technical standard of the [employer] and Genomics (ACMG). Maryjo Med. 2018 Feb;20(12):0312-0026. doi: 10.1038/k10146-665-3461-d. Epub 2017Dec 29. PMID: 12809888. Liliam Starr, PhD, [facility] Nathanael Liu, PhD Jaspreet Webb, PhD, FAC Griffin Schilling, PhD, FAC Fly Alicea, PhD, [employer] Margie Nicolas, PhD, FAC Cassi Vick, PhD, FAC Juana Christiansen, PhD, [facility] Performed at: - [facility] [id number] Lace Roller Operator: Jamari Medina PhD, Phone: [phone] Performed at: - [facility] [address] [facility], [place], [place] [id number] Lace Roller Operator: Cam Esteban [facility], Phone: [phone] Performed By: #### L 4500.5000, L300.3900, L500.4050, L100.0100, L501.9520, L500.4100, L501.6750, L3100.8408 #### [facility] [place] [address], [address] Absolute lymphocyte countOrd ered By: Lashawn Bryant on 05-24-2022 Lymphocytes Auto (Unsp spec) [#/Vol] 2.05 10*3/uL 0.83-4.51 [facility] Basophil percentageOrdered B y: Lashawn Bryant on 05-24-2022 Basophils/100 WBC (Bld) 0.6 % 0-1 [facility] Bilirubin [Mass/Vol] 0.60 mg/dL 0.20-1.00 [facility] Comment on above: For patients on eltr ombopag therapy, use of Dimension [place] TBIL is not recommended. Chloride [Moles/Vol] 105 mmol/L 98-107 [facility] Cholesterol [Mass/Vol] 243 mg/dL <200 [facility] Comment on above: <200 mg/dL Desirable 200-240 mg/dL Borderline >240 mg/dL High Risk Eosinophils/100 WBC (Bld) 1.3 % 0-5 [facility] Glucose [Mass/Vol] 89 mg/dL 74-106 [facility] Neutrophils (Bld) [#/Vol] 2.8 10*3/uL 2.0-7.7 [facility] Neutrophils/100 WBC (Bld) 51.9 % 47-70 [facility] Potassium [Moles/Vol] 3.6 mmol/L 3.5-5.1 [facility] Protein [Mass/Vol] 7.3 g/dL 6.4-8.2 [facility] Sodium [Moles/Vol] 140 mmol/L 136-145 [facility] Triglyceride [Mass/Vol] 135 mg/dL <199 [facility] Comment on above: The drugs N-Acetylcy steine and Metamizole may falsely depress this assay.Serum Triglycerides Reference Interval Normal <150 mg/dL Borderline high 150 - 199 mg/dL High 200 - 499 mg/dL Very High > or = 500 mg/dL WBC (Bld) [#/Vol] 5.4 10*3/uL 4.4-11.0 [facility] Blood erythrocytes count (nu mber/volume)Ordered By: Lashawn Bryant on 02-28-2023 RBC (Bld) [#/Vol] 4.47 10*6/uL 4.2-5.4 [facility] Blood hemoglobin measurement (mass/volume)Ordered By: Lashawn Bryant on 05-24-2022 Hemoglobin (Bld) [Mass/Vol] 13.7 g/dL 12.0-15.0 [facility] Blood lymphocytes/100 leukoc ytesOrdered By: Lashawn Bryant on 05-24-2022 Lymphocytes/100 WBC (Bld) 38.2 % 19-41 [facility] Blood monocytes/100 leukocyt esOrdered By: Lashawn Bryant on 05-24-2022 Monocytes/100 WBC (Bld) 7.8 % 0-10 [facility] Blood platelet mean volumeOr dered By: Lashawn Bryant on 05-24-2022 Platelet mean volume (Bld) [Entitic vol] 11.5 fL 6.2-12.0 [facility] CBC W/Diff, Automatedon 04-28 Absolute Lymph 2.05 X10 3/uL Normal 0.83-4.51 [facility] Comment on above: Performed By: #### L 4500.5000, L300.3900, L500.4050, L100.0100, L501.9520, L500.4100, L501.6750, L3100.8408 #### [facility] [address] [place], [address] Absolute Neut 2.8 X10 3/uL Normal 2.0-7.7 [facility] Comment on above: Performed By: #### L 4500.5000, L300.3900, L500.4050, L100.0100, L501.9520, L500.4100, L501.6750, L3100.8408 #### [facility] [address] [place], [address] Basophils/100 WBC (Bld) 0.6 % Normal 0-1 [facility] Comment on above: Performed By: #### L 4500.5000, L300.3900, L500.4050, L100.0100, L501.9520, L500.4100, L501.6750, L3100.8408 #### [facility] [address] [place], [address] Eosinophils/100 WBC (Bld) 1.3 % Normal 0-5 [facility] Comment on above: Performed By: #### L 4500.5000, L300.3900, L500.4050, L100.0100, L501.9520, L500.4100, L501.6750, L3100.8408 #### [facility] [address] [place], [address] Erythrocyte distribution width (RBC) [Ratio] 12.1 % Normal 11.6-14.6 [facility] Comment on above: Performed By: #### L 4500.5000, L300.3900, L500.4050, L100.0100, L501.9520, L500.4100, L501.6750, L3100.8408 #### [facility] [address] [place], [address] Hematocrit (Bld) [Volume fraction] 39.7 % Normal 37-47 [facility] Comment on above: Performed By: #### L 4500.5000, L300.3900, L500.4050, L100.0100, L501.9520, L500.4100, L501.6750, L3100.8408 #### [facility] [address] [place], [address] Hemoglobin (Bld) [Mass/Vol] 13.7 g/dL Normal 12.0-15.0 [facility] Comment on above: Performed By: #### L 4500.5000, L300.3900, L500.4050, L100.0100, L501.9520, L500.4100, L501.6750, L3100.8408 #### [facility] [address] [place], [address] IG% 0.200 Normal 0.0-0.9 [facility] Comment on above: Result Comment: IG% - Immature Granulocytes (promyelocytes, myelocytes and metamyelocytes) > 1% indicates that a LEFT SHIFT is Present. Performed By: #### L 4500.5000, L300.3900, L500.4050, L100.0100, L501.9520, L500.4100, L501.6750, L3100.8408 #### [facility] [address] [place], [address] Lymphocytes/100 WBC (Bld) 38.2 % Normal 19-41 [facility] Comment on above: Performed By: #### L 4500.5000, L300.3900, L500.4050, L100.0100, L501.9520, L500.4100, L501.6750, L3100.8408 #### [facility] [address] [place], [address] MCH (RBC) [Entitic mass] 30.6 pg Normal 27.0-32.0 [facility] Comment on above: Performed By: #### L 4500.5000, L300.3900, L500.4050, L100.0100, L501.9520, L500.4100, L501.6750, L3100.8408 #### [facility] [address] [place], [address] MCHC (RBC) [Mass/Vol] 34.5 g/dL Normal 32-36 [facility] Comment on above: Performed By: #### L 4500.5000, L300.3900, L500.4050, L100.0100, L501.9520, L500.4100, L501.6750, L3100.8408 #### [facility] [address] [place], [address] MCV (RBC) [Entitic vol] 88.8 fL Normal 81-99 [facility] Comment on above: Performed By: #### L 4500.5000, L300.3900, L500.4050, L100.0100, L501.9520, L500.4100, L501.6750, L3100.8408 #### [facility] [address] [place], [address] Monocytes/100 WBC (Bld) 7.8 % Normal 0-10 [facility] Comment on above: Performed By: #### L 4500.5000, L300.3900, L500.4050, L100.0100, L501.9520, L500.4100, L501.6750, L3100.8408 #### [facility] [address] [place], [address] Neutrophils/100 WBC (Bld) 51.9 % Normal 47-70 [facility] Comment on above: Performed By: #### L 4500.5000, L300.3900, L500.4050, L100.0100, L501.9520, L500.4100, L501.6750, L3100.8408 #### [facility] [address] [place], [address] Nucleated RBC (Bld) [#/Vol] 0 10*3/uL Normal 0-5 [facility] Comment on above: Performed By: #### L 4500.5000, L300.3900, L500.4050, L100.0100, L501.9520, L500.4100, L501.6750, L3100.8408 #### [facility] [address] [place], [address] Platelet mean volume (Bld) [Entitic vol] 11.5 fL Normal 6.2-12.0 [facility] Comment on above: Performed By: #### L 4500.5000, L300.3900, L500.4050, L100.0100, L501.9520, L500.4100, L501.6750, L3100.8408 #### [facility] [address] [place], [address] Platelets (Bld) [#/Vol] 203 10*3/uL Normal 150-450 [facility] Comment on above: Performed By: #### L 4500.5000, L300.3900, L500.4050, L100.0100, L501.9520, L500.4100, L501.6750, L3100.8408 #### [facility] [address] [place], [address] RBC (Bld) [#/Vol] 4.47 10*6/uL Normal 4.2-5.4 [facility] Comment on above: Performed By: #### L 4500.5000, L300.3900, L500.4050, L100.0100, L501.9520, L500.4100, L501.6750, L3100.8408 #### [facility] [address] [place], [address] RDW SD 39.2 fl Normal 35.1-43.9 [facility] Comment on above: Performed By: #### L 4500.5000, L300.3900, L500.4050, L100.0100, L501.9520, L500.4100, L501.6750, L3100.8408 #### [facility] [address] [place], [address] WBC (Bld) [#/Vol] 5.4 10*3/uL Normal 4.4-11.0 [facility] Comment on above: Performed By: #### L 4500.5000, L300.3900, L500.4050, L100.0100, L501.9520, L500.4100, L501.6750, L3100.8408 #### [facility] [address] [place], [address] CRP, High Sensitivity Cardia con 05-24-2022 CRP HIGH SENS 0.67 mg/L Normal [facility] Comment on above: Result Comment: Low Relative Risk of CVD <1.0 mg/L Average Relative Risk of CVD 1.0 - 3.0 mg/L High Relative Risk of CVD >3.0 mg/L Performed By: #### L 4500.5000, L300.3900, L500.4050, L100.0100, L501.9520, L500.4100, L501.6750, L3100.8408 #### [facility] Laboratory [address] [place], [address] Comprehensive Metabolic Prof ilon 05-24-2022 Albumin [Mass/Vol] 4.2 g/dL Normal 3.2-5.0 [facility] Comment on above: Performed By: #### L 4500.5000, L300.3900, L500.4050, L100.0100, L501.9520, L500.4100, L501.6750, L3100.8408 #### [facility] [address] [place], [address] Albumin/Globulin [Mass ratio] 1.4 {ratio} Normal 0.9-2.4 [facility] Comment on above: Performed By: #### L 4500.5000, L300.3900, L500.4050, L100.0100, L501.9520, L500.4100, L501.6750, L3100.8408 #### [facility] [address] [place], [address] ALK P 62 U/L Normal 45-117 [facility] Comment on above: Performed By: #### L 4500.5000, L300.3900, L500.4050, L100.0100, L501.9520, L500.4100, L501.6750, L3100.8408 #### [facility] [address] [place], [address] ALT [Catalytic activity/Vol] 19 U/L Normal 13-56 [facility] Comment on above: Performed By: #### L 4500.5000, L300.3900, L500.4050, L100.0100, L501.9520, L500.4100, L501.6750, L3100.8408 #### [facility] [address] [place], [address] AST [Catalytic activity/Vol] 14 U/L Low 15-37 [facility] Comment on above: Performed By: #### L 4500.5000, L300.3900, L500.4050, L100.0100, L501.9520, L500.4100, L501.6750, L3100.8408 #### [facility] [address] [place], [address] Bilirubin [Mass/Vol] 0.60 mg/dL Normal 0.20-1.00 [facility] Comment on above: Result Comment: For patients on eltrombopag therapy, use of Dimension Stanton TBIL is not recommended. Performed By: #### L 4500.5000, L300.3900, L500.4050, L100.0100, L501.9520, L500.4100, L501.6750, L3100.8408 #### [facility] [address] [place], [address] BUN/CRE 17.3 RATIO Normal 10-20 [facility] Comment on above: Performed By: #### L 4500.5000, L300.3900, L500.4050, L100.0100, L501.9520, L500.4100, L501.6750, L3100.8408 #### [facility] [address] [place], [address] CA,Total 9.5 mg/dL Normal 8.5-10.1 [facility] Comment on above: Performed By: #### L 4500.5000, L300.3900, L500.4050, L100.0100, L501.9520, L500.4100, L501.6750, L3100.8408 #### [facility] [address] [place], [address] Chloride [Moles/Vol] 105 mmol/L Normal 98-107 [facility] Comment on above: Performed By: #### L 4500.5000, L300.3900, L500.4050, L100.0100, L501.9520, L500.4100, L501.6750, L3100.8408 #### [facility] [address] [place], [address] CO2 [Moles/Vol] 29.0 mmol/L Normal 21.0-32.0 [facility] Comment on above: Performed By: #### L 4500.5000, L300.3900, L500.4050, L100.0100, L501.9520, L500.4100, L501.6750, L3100.8408 #### [facility] [address] [place], [address] Creatinine [Mass/Vol] 0.58 mg/dL Normal 0.55-1.02 [facility] Comment on above: Result Comment: The validity of the calculated GFR GFRAA in patients over 70 years has not been determined. Clinical correlation is essential. Performed By: #### L 4500.5000, L300.3900, L500.4050, L100.0100, L501.9520, L500.4100, L501.6750, L3100.8408 #### [facility] [address] [place], [address] EST GFR - AA 140 mL/min Normal >60 [facility] Comment on above: Result Comment: Afri can Japanese GFR Calc Performed By: #### L 4500.5000, L300.3900, L500.4050, L100.0100, L501.9520, L500.4100, L501.6750, L3100.8408 #### [facility] [address] [place], [address] GAP 6 Normal 5-15 [facility] Comment on above: Performed By: #### L 4500.5000, L300.3900, L500.4050, L100.0100, L501.9520, L500.4100, L501.6750, L3100.8408 #### [facility] [address] [place], [address] GFR/1.73 sq M.predicted among non-blacks MDRD (S/P/Bld) [Vol rate/Area] 116 mL/min/{1.73_m2} Normal >60 [facility] Comment on above: Result Comment: Non- GFR Calc Performed By: #### L 4500.5000, L300.3900, L500.4050, L100.0100, L501.9520, L500.4100, L501.6750, L3100.8408 #### [facility] [address] [place], [address] Globulin (S) [Mass/Vol] 3.1 g/dL Normal 2.2-4.2 [facility] Comment on above: Performed By: #### L 4500.5000, L300.3900, L500.4050, L100.0100, L501.9520, L500.4100, L501.6750, L3100.8408 #### [facility] [address] [place], [address] Glucose [Mass/Vol] 89 mg/dL Normal 74-106 [facility] Comment on above: Performed By: #### L 4500.5000, L300.3900, L500.4050, L100.0100, L501.9520, L500.4100, L501.6750, L3100.8408 #### [facility] [address] [place], [address] Potassium [Moles/Vol] 3.6 mmol/L Normal 3.5-5.1 [facility] Comment on above: Performed By: #### L 4500.5000, L300.3900, L500.4050, L100.0100, L501.9520, L500.4100, L501.6750, L3100.8408 #### [facility] [address] [place], [address] Sodium [Moles/Vol] 140 mmol/L Normal 136-145 [facility] Comment on above: Performed By: #### L 4500.5000, L300.3900, L500.4050, L100.0100, L501.9520, L500.4100, L501.6750, L3100.8408 #### [facility] [address] [place], [address] T PROT 7.3 g/dL Normal 6.4-8.2 [facility] Comment on above: Performed By: #### L 4500.5000, L300.3900, L500.4050, L100.0100, L501.9520, L500.4100, L501.6750, L3100.8408 #### [facility] [address] [place], [place], [address] Urea nitrogen [Mass/Vol] 10 mg/dL Normal 7-18 [facility] Comment on above: Performed By: #### L 4500.5000, L300.3900, L500.4050, L100.0100, L501.9520, L500.4100, L501.6750, L3100.8408 #### [facility] [address] [place], [address] Determination of erythrocyte mean corpuscular volume (MCV)Ordered By: Lashawn Bryant on 05-24-2022 MCV (RBC) [Entitic vol] 88.8 fL 81-99 [facility] Hematocrit Auto (Bld) [Volum e fraction]Ordered By: Lashawn Bryant on 05-24-2022 Hematocrit (Bld) [Volume fraction] 39.7 % 37-47 [facility] INR in Blood by Coagulation assayOrdered By: Lashawn Bryant on 05-24-2022 INR Coag (Bld) [Relative time] 0.9 {INR} [facility] - Chemistry and C hemistry - challengeOrdered By: Lashawn Bryant on 05-24-2022 ALP [Catalytic activity/Vol] 62 U/L 45-117 [facility] ALT [Catalytic activity/Vol] 19 U/L 13-56 [facility] CO2 [Moles/Vol] 29.0 mmol/L 21.0-32.0 [facility] Globulin (S) [Mass/Vol] 3.1 g/dL 2.2-4.2 [facility] Urea nitrogen/Creatinine [Mass ratio] 17.3 mg/mg 10-20 [facility] - CoagulationOrde red By: Lashawn Bryant on 05-24-2022 PT Coag (PPP) [Time] 12.0 s 11.7-14.9 [facility] - Hematology and Cell countsOrdered By: Lashawn Bryant on 05-24-2022 Erythrocyte distribution width (RBC) [Entitic vol] 39.2 fL 35.1-43.9 [facility] Erythrocyte distribution width (RBC) [Ratio] 12.1 % 11.6-14.6 [facility] Immature granulocytes/100 WBC (Bld) 0.200 % 0.0-0.9 [facility] Comment on above: IG% - Immature Granu locytes (promyelocytes, myelocytes and metamyelocytes) > 1% indicates that a LEFT SHIFT is Present. MCH (RBC) [Entitic mass] 30.6 pg 27.0-32.0 [facility] Nucleated RBC/100 WBC (Bld) [Ratio] 0 % 0-5 [facility] Lipid Profileon 05-24-2022 Cholesterol [Mass/Vol] 243 mg/dL High 200 [facility] Comment on above: Result Comment: <200 mg/dL Desirable 200-240 mg/dL Borderline >240 mg/dL High Risk Performed By: #### L 4500.5000, L300.3900, L500.4050, L100.0100, L501.9520, L500.4100, L501.6750, L3100.8408 #### [facility] [address] [place], [address] Cholesterol in HDL [Mass/Vol] 67 mg/dL Normal [facility] Comment on above: Result Comment: The drugs N-Acetylcysteine and Metamizole may falsely depress this assay. Reference Range HDL <40 mg/dL Low HDL Cholesterol HDL >or= 60 mg/dL High HDL Cholesterol Performed By: #### L 4500.5000, L300.3900, L500.4050, L100.0100, L501.9520, L500.4100, L501.6750, L3100.8408 #### [facility] [address] [place], [address] Cholesterol in LDL [Mass/Vol] 149 mg/dL High 0-130 [facility] Comment on above: Performed By: #### L 4500.5000, L300.3900, L500.4050, L100.0100, L501.9520, L500.4100, L501.6750, L3100.8408 #### [facility] [address] [place], [address] Cholesterol in VLDL [Mass/Vol] 27 mg/dL Normal 5-40 [facility] Comment on above: Performed By: #### L 4500.5000, L300.3900, L500.4050, L100.0100, L501.9520, L500.4100, L501.6750, L3100.8408 #### [facility] [address] [place], [address] Triglyceride [Mass/Vol] 135 mg/dL Normal [facility] Comment on above: Result Comment: The drugs N-Acetylcysteine and Metamizole may falsely depress this assay. Serum Triglycerides Reference Interval Normal <150 mg/dL Borderline high 150 - 199 mg/dL High 200 - 499 mg/dL Very High > or = 500 mg/dL Performed By: #### L 4500.5000, L300.3900, L500.4050, L100.0100, L501.9520, L500.4100, L501.6750, L3100.8408 #### [facility] [address] [place], [address] MCHC Auto (RBC) [Mass/Vol]Or dered By: Lashawn Bryant on 05-24-2022 MCHC (RBC) [Mass/Vol] 34.5 g/dL 32-36 [facility] No Panel InformationOrdered By: Lashawn Bryant on 05-24-2022 Anti-Cardiolipin IgM Antibody < 9 MPL U/mL 0-12 [facility] Comment on above: Negative: <13 Indete rminate: 13 - 20 Low-Med Positive: >20 - 80 High Positive: >80 C-Reactive Protein High Sensitivity 0.67 mg/L <3.00 [facility] Comment on above: Low Relative Risk of CVD <1.0 mg/L Average Relative Risk of CVD 1.0 - 3.0 mg/L High Relative Risk of CVD >3.0 mg/L Estimated GFR (MDRD) Amer 140 mL/min >60 [facility] Comment on above: GFR Calc Estimated GFR (MDRD) Non-Af Amer 116 mL/min >60 [facility] Comment on above: Non- GFR Calc Factor V Leiden Mutation Comment . 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 See Additional Clinical Information andComments.Additional Clinical Information:Venous thromboembolism is a multifactorial diseaseinfluenced by genetic, environmental, and circumstantialrisk factors. The c.1601G>A (p. [id number]) variant in theF5 gene, commonly referred to as Factor V Leiden, is agenetic risk factor for venous thromboembolism.Heterozygous carriers of this variant have a 6- to 8-foldincreased risk for venous thromboembolism. Individualshomozygous for this variant (ie, with a copy of the varianton each chromosome) have an approximately 80-fold increasedrisk for venous thromboembolism. Individuals who carry santa c.*97G>A variant in the F2 gene and Factor V Leiden havean approximately 20-fold increased risk for venousthromboembolism. Risks are likely to be even higher in morecomplex genotype combinations involving the F2 c.*97G>Avariant and Factor V Leiden (PMID: 68909231). Additionalrisk factors include but are not limited to: deficiency ofprotein C, protein S, or antithrombin III, age, male sex,personal or family history of deep vein thromboembolism,smoking, surgery, prolonged immobilization, malignantneoplasm, tamoxifen treatment, raloxifene treatment, oralcontraceptive use, hormone replacement therapy, andpregnancy. Management of thrombotic risk and thromboticevents should follow established guidelines and fit theclinical circumstance. This result cannot predict theoccurrence or recurrence of a thrombotic event.Comment:Genetic counseling is recommended to discuss thepotential clinical implications of positive results, aswell as recommendations for testing family members.Genetic Coordinators are available for health careproviders to discuss results at [phone]).Test Details:Variant Analyzed: c.1601G>A (p. [id number]), referred toas Factor V LeidenMethods/Limitations:DNA analysis of the F5 gene (NM_000130.5) was performedby PCR amplification followed by restriction enzymeanalysis. The diagnostic sensitivity is >99%. Results mustbe combined with clinical information for the most accurateinterpretation. Molecular-based testing is highly accurate,but as in any laboratory test, diagnostic errors may occur.False positive or false negative results may occur forreasons that include genetic variants, blood transfusions,bone marrow transplantation, somatic or tissue-specificmosaicism, mislabeled samples, or erroneous representationof family relationships.This test was developed and its performance characteristicsdetermined by [employer]. It has not been cleared orapproved by the Food and Drug Administration.References:Devon S, Sun AK, Praneeth R, Radha WW, Ja JH; [facility] YORKProfessional Practice and Guidelines Committee. Addendum:[employer] consensus statement onfactor V Leiden mutation testing. [employer] Med. 2020May 29.doi: 10.1038/e27860-398-59830-i. PMID: 84095148.Dwight WANG. Factor V Leiden Thrombophilia. 1998August 07(Updated 2017Mar 30). In: Adalid MP, Marcellus HH, Lyle RA,et al., editors. Caden([place]) (Internet). [place] ([place]):[facility]; 9775-3767. Availablefrom: https://www.ncbi.nlm.nih.gov/books/MBA7214/Rich S, Sun AK, Ronnell X, Ricky B, Sybil EB, Sienna P,Kristin CS; [employer] [facility] [employer] Committee.Venous thromboembolism laboratory testing (factor V Leidenand factor II c.*97G>A), 2018 update: a technical standardof the [employer] and [employer]omics(ACMG). [employer]jo Med. 2017;20(12):2844-8612. doi:10.1038/[id number]-e. Epub 2017Dec 29. PMID: 90814266.Liliam Starr, PhD, Theodora Liu, PhDJaspreet Webb, PhD, Dariela Schilling, PhD, Jessica Alicea, PhD, FACHEATHER Nicolas, PhD, Lillian Vick, PhD, Paulo Christiansen, PhD, FACMGPerformed at: [facility] [employer] [id number] Director: Jamari Medina PhD, Phone: [phone] at: [facility] [employer] [id number] [place], [place] [id number] Director: Cam Esteban [facility], Phone: [phone] Thyroid Stimulating Hormone (TSH) 1.77 uIU/mL 0.358-3.74 [facility] Platelets bldOrdered By: Jaswinder Bryant on 05-24-2022 Platelets (Bld) [#/Vol] 203 10*3/uL 150-450 [facility] Prothrombin Time w/INRon INR Coag (PPP) [Relative time] 0.9 {INR} Normal [facility] Comment on above: Performed By: #### L 4500.5000, L300.3900, L500.4050, L100.0100, L501.9520, L500.4100, L501.6750, L3100.8408 #### [facility] [address] [place], [address] PT Coag (PPP) [Time] 12.0 s Normal 11.7-14.9 [facility] Comment on above: Performed By: #### L 4500.5000, L300.3900, L500.4050, L100.0100, L501.9520, L500.4100, L501.6750, L3100.8408 #### [facility] [address] [place], [place], [id number] Serum cardiolipin IgG antibo dy assay by immunoassay (units/volume)Ordered By: Lashawn Bryant on 05-24-2022 Cardiolipin IgG IA Qn (S) < 9 GPL U/mL 0-14 [facility] Comment on above: Negative: <15 Indete rminate: 15 - 20 Low-Med Positive: >20 - 80 High Positive: >80 Serum or plasma albumin ezekiel urement (mass/volume)Ordered By: Lashawn Bryant on 05-24-2022 Albumin [Mass/Vol] 4.2 g/dL 3.2-5.0 [facility] Serum or plasma albumin/glob ulin mass ratioOrdered By: Lashawn Bryant on 05-24-2022 Albumin/Globulin [Mass ratio] 1.4 {ratio} 0.9-2.4 [facility] Serum or plasma calcium ezekiel urement (mass/volume)Ordered By: Lashawn Bryant on 05-24-2022 Calcium [Mass/Vol] 9.5 mg/dL 8.5-10.1 [facility] Serum or plasma cardiolipin IgA antibody assay (units/volume)Ordered By: Lashawn Bryant on 05-24-2022 Cardiolipin IgA Qn < 9 APL U/mL 0-11 [facility] Comment on above: Negative: <12 Indete rminate: 12 - 20 Low-Med Positive: >20 - 80 High Positive: >80 Serum or plasma cholesterol in HDL measurement (mass/volume)Ordered By: Lashawn Bryant on 05-24-2022 Cholesterol in HDL [Mass/Vol] 67 mg/dL >40 [facility] Comment on above: The drugs N-Acetylcy steine and Metamizole may falsely depress this assay. Reference Range HDL <40 mg/dL Low HDL Cholesterol HDL >or= 60 mg/dL High HDL Cholesterol Serum or plasma cholesterol in VLDL measurement (mass/volume)Ordered By: Lashawn Bryant on 05-24-2022 Cholesterol in VLDL [Mass/Vol] 27 mg/dL 5-40 [facility] Serum or plasma creatinine m easurement (mass/volume)Ordered By: Lashawn Bryant on 05-24-2022 Creatinine [Mass/Vol] 0.58 mg/dL 0.55-1.02 [facility] Comment on above: The validity of the calculated GFR & GFRAA in patients over 70 years has not been determined. Clinical correlation is essential. Serum or plasma low density lipoprotein (LDL) cholesterol measurement (mass/volume)Ordered By: Lashawn Bryant on 05-24-2022 Cholesterol in LDL [Mass/Vol] 149 mg/dL 0-130 [facility] Serum or plasma urea nitroge n measurement (mass/volume)Ordered By: Lashawn Bryant on 05-24-2022 Urea nitrogen [Mass/Vol] 10 mg/dL 7-18 [facility] Thin prep Papanicolaou smear with manual screeningOrdered By: Lashawn Bryant on 05-24-2022 Thin prep Papanicolaou smear with manual screening 14 U/L 15-37 [facility] Thin prep Papanicolaou smear with manual screening 6 5-15 [facility] Thyroid Stim Hormone (TSH)on 05-24-2022 TSH 1.77 uIU/mL Normal 0.358-3.74 [facility] Comment on above: Performed By: #### L 4500.5000, L300.3900, L500.4050, L100.0100, L501.9520, L500.4100, L501.6750, L3100.8408 #### [facility] [address] [place], [address] [facility] 10-19-[address] [facility] Vital Signs Date Time Vital Sign Value Performing Clinician Joelle valente 10-26-2023 09:30-0400 Body mass index (BMI) [Ratio] 31.99 kg/m2 Bernarda Suggs MD Work Phone: [facility] 10-26-2023 09:30-0400 Body weight 87.2 kg Bernarda Suggs MD Work Phone: [facility] 10-26-2023 09:30-0400 Diastolic blood pressure 78 mm[Hg] Bernarda Suggs MD Work Phone: [facility] 10-26-2023 09:30-0400 Systolic blood pressure 122 mm[Hg] Bernarda Suggs MD Work Phone: [facility] 09-13-2023 10:43-0400 Body height 165.1 cm Barbie Pearl MD Work Phone: [facility] 09-13-2023 10:43-0400 Body mass index (BMI) [Ratio] 31.45 kg/m2 Barbie Pearl MD Work Phone: [facility] 09-13-2023 10:43-0400 Body weight 85.73 kg Barbie Pearl MD Work Phone: [facility] 09-13-2023 10:43-0400 Diastolic blood pressure 68 mm[Hg] Barbie Pearl MD Work Phone: [facility] 09-13-2023 10:43-0400 Heart rate 65 /min Barbie Pearl MD Work Phone: [facility] 09-13-2023 10:43-0400 SaO2% (BldA) [Mass fraction] 98 % Barbie Pearl MD Work Phone: [facility] 09-13-2023 10:43-0400 Systolic blood pressure 104 mm[Hg] Barbie Pearl MD Work Phone: [facility] 05-24-2022 15:45-0500 Body height 165.1 cm [facility] 05-24-2022 15:45-0500 Body mass index (BMI) [Ratio] 31.6 kg/m2 [facility] 05-24-2022 15:45-0500 Body temperature 97.5 [degF] [facility] 05-24-2022 15:45-0500 Body weight 86.18 kg [facility] 05-24-2022 15:45-0500 Diastolic blood pressure 60 mm[Hg] [facility] 05-24-2022 15:45-0500 Heart rate 60 /min [facility] 05-24-2022 15:45-0500 Respiratory rate 18 /min [facility] 05-24-2022 15:45-0500 SaO2% (BldA) [Mass fraction] 99 % [facility] 05-24-2022 15:45-0500 Systolic blood pressure 104 mm[Hg] [facility] 02-23-2022 17:17-0500 Body mass index (BMI) [Ratio] 29.9 kg/m2 [facility] 02-23-2022 17:17-0500 Body temperature 97.5 [degF] [facility] 02-23-2022 17:17-0500 Body weight 81.64 kg [facility] 02-23-2022 17:17-0500 Diastolic blood pressure 70 mm[Hg] [facility] 02-23-2022 17:17-0500 Heart rate 71 /min [facility] 02-23-2022 17:17-0500 Respiratory rate 18 /min [facility] 02-23-2022 17:17-0500 SaO2% (BldA) [Mass fraction] 99 % [facility] 02-23-2022 17:17-0500 Systolic blood pressure 120 mm[Hg] [facility] 02-08-2022 15:12-0500 Body mass index (BMI) [Ratio] 29.7 kg/m2 [facility] 02-08-2022 15:12-0500 Body temperature 97.3 [degF] [facility] 02-08-2022 15:12-0500 Body weight 81.19 kg [facility] 02-08-2022 15:12-0500 Diastolic blood pressure 70 mm[Hg] [facility] 02-08-2022 15:12-0500 Heart rate 72 /min [facility] 02-08-2022 15:12-0500 Respiratory rate 18 /min [facility] 02-08-2022 15:12-0500 SaO2% (BldA) [Mass fraction] 97 % [facility] 02-08-2022 15:12-0500 Systolic blood pressure 128 mm[Hg] [facility] Encounters Encounter Date Encounter Type Care Provider Facility Start: 08-15-2024 End: 08-15-2024 Emergency department patient visit LASHAWN BRYANT Facility:[facility] Start: 02-28-2024 End: 02-28-2024 Refill Will Knox MD Work Phone: Obstetrics/Gynecology Comment on above: Refill Request Start: 02-28-2024 End: 02-28-2024 Telephone encounter Will Knox MD Work Phone: Obstetrics/Gynecology Start: 10-26-2023 End: 10-26-2023 ambulatory BERNARDA SUGGS Facility:[facility] Start: 10-26-2023 End: 10-26-2023 Patient encounter status Bernarda Suggs MD Work Phone: [facility] Work Phone: Start: 10-26-2023 End: 10-26-2023 Periodic preventive med est patient 40-64yrs Bernarda Suggs MD Work Phone: Obstetrics/Gynecology Comment on above: Encounter for gyneco logical examination (general) (routine) without abnormal findings (Primary Dx); Encounter for screening mammogram for breast cancer; Obesity, Class I, BMI 30-34.9; Encounter for screening for malignant neoplasm of colon; Menopause; Vaginal dryness Start: 09-27-2023 ambulatory LASHAWN L BRYANT Facil ity:[facility] Start: 09-27-2023 End: 09-27-2023 Subsequent hospital visit by physician [facility] 1 [facility] Work Phone: Cardiology Lab Comment on above: Chest pain, unspecif ied type [R07.9] Start: 09-27-2023 ambulatory LASHAWN BRYANT Facil ity:[facility] Start: 09-27-2023 End: 09-27-2023 Subsequent hospital visit by physician [facility] 2 Work Phone: Molecular Imaging Comment on above: Chest pain, unspecif ied type [R07.9] Start: 09-26-2023 Documentation procedure Mammog brad Coordinator [facility] Department Start: 09-26-2023 Letter encounter Mammography Coordinator [facility] Start: 09-26-2023 Telephone encounter Francesca carrington RN Cardiology Lab Comment on above: Reminder Call Start: 09-25-2023 ambulatory WILL KNOX Facili ty:[facility] Start: 09-25-2023 End: 09-25-2023 Subsequent hospital visit by physician Screen/Diagnostic Mammo 1 [facility] Work Phone: Mammography Comment on above: Encounter for screen ing mammogram for malignant neoplasm of breast [Z12.31] Start: 09-19-2023 ambulatory UNKNOWN PROVIDER Facili ty:[facility] Start: 09-19-2023 End: 09-19-2023 Subsequent hospital visit by physician Echo [facility] Work Phone: Cardiology Lab Comment on above: Other chest pain [R0 7.89] Start: 09-13-2023 End: 09-13-2023 ambulatory BARBIE PEARL Facility:[facility] Start: 09-13-2023 End: 09-13-2023 Patient encounter procedure Barbie Pearl MD Work Phone: Cardiology Comment on above: Other chest pain (Pr imary Dx); Chest pain, unspecified type Start: 08-31-2023 End: 08-31-2023 Emergency department patient visit LASHAWN Twyla BRYANT Facility:[facility] Start: 08-29-2023 Refill Will lozano MD Work Phone: Obstetrics/Gynecology Comment on above: Med Change Request Start: 08-22-2023 Telephone encounter Will Mcginnis MD Work Phone: Obstetrics/Gynecology Comment on above: Refill Request Start: 11-22-2022 End: 11-23-2022 ambulatory BETHEL [facility] Facility:[id number] Start: 05-31-2022 Encounter for genera l adult medical examination without abnormal findings Lashawn Manny CORE RESCUER [facility] Start: 05-24-2022 End: 05-24-2022 Patient encounter procedure [facility], Specimen Start: 05-24-2022 Patient encounter status [facility] Start: 05-24-2022 End: 05-24-2022 ambulatory Lashawnshu ArcosBryant CORE RESCUER [facility] Work Phone: Start: 03-16-2022 Refill Will lozano MD Work Phone: OB/Gynecology Comment on above: Refill Request Start: 03-02-2022 Refill Will lozano MD Work Phone: OB/Gynecology Comment on above: Refill Request Start: 10-19-2021 End: 10-19-2021 Subsequent hospital visit by physician Screen/Diagnostic Mammo [facility] Work Phone: Mammography Comment on above: Encounter for screen ing mammogram for malignant neoplasm of breast [Z12.31] Start: 10-24-2019 Patient encounter status [facility] Start: 08-05-2015 Patient encounter status [facility] Work Phone: [facility] Work Phone: Procedures Date Procedure Procedure Detail Performing Clinician Start: 09-27-2023 Myocardial spect multiple studies Barbie Pearl MD Work Phone: Start: 09-19-2023 Echo tthrc r-t 2d w/wom-mode compl spec&colr d Barbie Pearl MD Work Phone: Start: 10-19-2021 End: 10-19-2021 Screening mammography bi 2-view breast inc cad Will Knox MD Work Phone: Start: 11-07-2017 Lipid 1996 panel - Serum or Plasma Will Knox MD Work Phone: Start: 08-05-2015 History of augmentation of breast H/O breast augmentation [facility] Work Phone: Plan of Treatment Date Care Activity Detail Author Start: 09-18-2029 Urine microalbumin profile DTa P,Tdap,Td Vaccine (7 - Td or Tdap) [facility] Start: 11-29-2026 Urine microalbumin profile DTA P,TDAP,TD (3 - Td or Tdap) [facility] Start: 08-30-2026 Diabetes Screening Diabetes Screenin g [facility] Start: 12-31-2024 HPV TESTING HPV TESTING [facility] Start: 12-31-2024 PAP TESTING PAP TESTING [facility] Start: 12-31-2024 Screening for malign ant neoplasm of cervix [facility] Start: 09-24-2024 Screening for malign ant neoplasm of breast Mammogram Screening [facility] Start: 11-26-2023 Covid-19 Vaccine ( season) Covid-19 Vaccine () [facility] Start: 11-26-2023 Influenza vaccination [facility] Start: 10-26-2023 End: 10-26-2023 Patient encounter procedure 10/26/2023 9:30 AM EDT Office Visit Obstetrics/Gynecology [address] [address] Bernarda Suggs MD [address] [place] [address] ANNUAL Obstetrics/Gynecolog y Comment on above: ANNUAL Start: 09-27-2023 Subsequent hospital visit by physician 09/27/2023 9:00 AM EDT Hospital Encounter Cardiology Lab [address] [place] [address] Chest pain, unspecified type [R07.9] Cardiology Lab Comment on above: Chest pain, unspecif ied type [R07.9] Start: 09-27-2023 End: 09-27-2023 Patient encounter procedure 09/27/2023 8:00 AM EDT Appointment Molecular Imaging [address] [place] [id number] Chest pain, unspecified type [R07.9] Molecular Imaging Comment on above: Chest pain, unspecif ied type [R07.9] Start: 09-25-2023 End: 09-25-2023 Patient encounter procedure 09/25/2023 2:40 PM EDT Appointment Mammography [address] [place] [address] Mammography Start: 09-19-2023 End: 09-19-2023 Patient encounter procedure 09/19/2023 7:00 AM EDT Appointment Cardiology Lab [address] [place] [address] Harjinder Nascimento Cardiology Lab Comment on above: Ok nuha Nascimento Start: 09-13-2023 End: 09-12-2024 Echocardiography ECHO Cardiology Routine Other chest pain Chest pain, unspecified type Expected: 09/13/2023, Expires: 09/12/2024 [facility] Work Phone: Comment on above: Expected: 09/13/2023 , Expires: 09/12/2024 Start: 09-13-2023 End: 10-12-2024 NM Heart Perfusion W multiple states of exercise NM CARDIAC PERF STRESS/EXERCISE Radiology Routine Chest pain, unspecified type Expected: 09/13/2023, Expires: 10/12/[address] [facility] Comment on above: Expected: 09/13/2023 , Expires: 10/12/2024 Start: 11-25-2022 Covid-19 Vaccine ( season) Covid-19 Vaccine () [facility] Start: 11-07-2022 Lipid panel Lipid Screening [facility] Start: 11-07-2022 LIPID SCREEN LIPID SCREEN [facility] Start: 10-19-2022 Mammography MAMMOGRAM [facility] Start: 10-19-2022 Screening for malign ant neoplasm of breast Mammogram Screening [facility] Start: 11-25-2021 Influenza vaccination INFLUENZA (#1) [facility] Start: 02-13-2021 [facility]AB[facility] Start: 02-13-2021 Diabetes Screening Diabetes Screenin g [facility] Start: 2018 SHINGRIX VACCINE (1 of 2) AGOSTO GRIX VACCINE (1 of 2) [facility] Start: 2013 COLOGUARD (FIT-DNA) COLOGUARD (FIT-D NA) [facility] Start: 2013 Colonoscopy COLONOSCOPY [facility] Start: 2013 COLORECTAL CANCER SCREENING COLORECTAL CANCER SCREENING [facility] Start: [address] COLONOGRAPHY [facility] Start: 2013 FECAL OCCULT BLOOD FECAL OCCULT BLOO D [facility] Start: 2013 Screening for malign ant neoplasm of colon [facility] Start: 2013 SIGMOIDOSCOPY SIGMOIDOSCOPY [facility] Start: 10-16-1987 Hepatitis B Vaccine (1 of 3 - 19+ 3-dose series) Hepatitis B Vaccine (1 of 3 - 19+ 3-dose series) [facility] Start: 1986 HEPATITIS C SCREENING HEPATITIS C [facility] Start: 1986 Hepatitis C screening Hepatitis C [facility] Start: 1986 HIV SCREENING HIV SCREENING [facility] Start: 1986 HIV screening HIV Screening [facility] Start: 04-17-1969 COVID-19 VACCINE (#1) COVID-19 VACCI NE (#1) [facility] Start: 1968 HEPATITIS B (1 of 3 - 3-dose series) HEPATITIS B (1 of 3 - 3-dose series) [facility] End: 09-20-2024 DBT Breast - bilateral screening BARBRA SCREENING W [facility] Radiology Routine Encounter for screening mammogram for malignant neoplasm of breast 1 Occurrences starting 08/22/2023 until 09/20/2024 [facility] Work Phone: Comment on above: 1 Occurrences starti ng 08/22/2023 until 09/20/2024 DBT Breast - bilater al screening BARBRA SCREENING W [facility] Radiology Routine Encounter for screening mammogram for malignant neoplasm of breast 09/25/2023 2:56 PM EDT [facility] Work Phone: End: 11-24-2024 DBT Breast - bilateral screening BARBRA SCREENING W [facility] Radiology Routine Encounter for gynecological examination (general) (routine) without abnormal findings 1 Occurrences starting 10/26/2023 until 11/24/2024 [facility] Work Phone: Comment on above: 1 Occurrences starti ng 10/26/2023 until 11/24/2024 Immunizations Immunization Date Immunization Notes Care Provider Micheline atkinson 12-11-2019 influenza virus vaccine, unspecified formulation Will Knox MD Work Phone: [facility] 09-19-2019 tetanus toxoid, redu guy diphtheria toxoid, and acellular pertussis vaccine, adsorbed [facility] 10-01-2018 tetanus toxoid, redu guy diphtheria toxoid, and acellular pertussis vaccine, adsorbed [facility] 12-27-2016 influenza, injectabl e, quadrivalent, contains preservative [facility] Work Phone: [facility] 11-29-2016 tetanus toxoid, redu guy diphtheria toxoid, and acellular pertussis vaccine, adsorbed [facility] Work Phone: [facility] 02-21-2012 tetanus toxoid, redu guy diphtheria toxoid, and acellular pertussis vaccine, adsorbed [facility] Work Phone: [facility] Payers Date Payer Category Payer Self-pay [id number] 2021 Unknown [facility] [employer] [id number] 2021-Present [phone] [address] [place] [address] PPO [id number] 2021 [facility] [employer] [id number] 2021-Present [phone] [address] [place] [address] PPO [id number] 2021 Unknown [id number] 1970 Unknown [id number] Unknown RENAN [id number] Unknown [facility] [id number] Unknown [id number] Social History Date Type Detail Facility Start: 05-05-2011 End: 09-13-2023 Tobacco smoking status NHIS Never smoked tobacco [facility] Start: 05-05-2011 End: 09-13-2023 Tobacco use and exposure Smokeless tobacco non-user [facility] Start: 05-07-2021 End: 10-26-2023 Alcohol intake Current drinker of alcohol (finding) [facility] Start: 03-01-2020 End: 05-07-2021 Alcohol intake [facility] Start: 1970 Sex Assigned At Not on file [facility] Start: 10-09-2021 End: 10-19-2021 Exposure to SARS-CoV-2 (event) Not sure [facility] Start: 10-24-2019 Tobacco smoking stat us NHIS Unknown if ever smoked [facility] Start: 1970 Sex Assigned At Female [facility] Start: 03-01-2020 End: 05-07-2021 Tobacco use panel [facility] PHQ2 Score 0 [facility] Start: 09-13-2023 Gender identity Identifies as female gender (finding) [facility] Clinical Notes 10-19-2021 to 10-26-2023 Bernarda Suggs MD - 10/26/2023 10:01 AM EDTPatient Alma Anderson CT - 09/27/2023 8:00 AM EDTTelephone Encounter - Francesca Arevalo RN - 09/26/2023 3:00 PM EDT Note Date & Type Note Facility 10-26-2023 Note HNO ID: [id number] Author: BERNARDA SUGGS MD Service: ? Author Type: Physician Type: Progress Notes Filed: 10/26/2023 15:16 Note Text: Meghan is a 53 year old who presents for an annual gynecologic exam with complaints, menopausal symptoms. Has been working on physical health since 2020, doing orange theory Had tummy tuck and breast lift in 2022 On Paxil which helps with hot flashes Cut back EtOH which reduces hot flashes and hangover Biggest menopause concern is weight uses weight watchers, struggling to lose 30# when does protein feels gains does eggs, chicken, hebrew yogurt, Vaginal dryness/painful sex OTC not on HRT Postmenopausal: Yes since age HRT use: No. 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 Comment: and bilat salpingectomy 2010: NOVASURE Comment: DARA hysteroscopy No date: SALPINGECTOMY Comment: BTL FAMILY HISTORY Problem Relation Age of Onset Cancer Mother Uterine cancer Arrhythmia Mother A-fib Cardiomyopathy Father other (ICD) Father other (other) Brother valve disorder SOCIAL HISTORY Social History Tobacco Use Smoking status: Never Smokeless tobacco: Never Substance Use Topics Alcohol use: Yes Alcohol/week: 4.0 standard drinks of alcohol Types: 4 Glasses of Wine (5oz) per week Drug use: No REVIEW OF SYSTEMS Abdomen: No abdominal pain, nausea, vomiting, diarrhea, or constipation. No bloating, early satiety, indigestion, or increased flatulence. Bladder: No dysuria, gross hematuria, urinary frequency, urinary urgency, or incontinence Breast: No breast lumps, nipple d/c, overlying skin changes, redness or skin retraction Allergies and current medication updated:Yes EXAM: BP 122/78 Wt 192 lb 3.9 oz (87.2kg) GENERAL: pleasant, female in no apparent distress HEENT: Normocephalic, atraumatic, mucus membranes moist, and no lesions NECK: Supple, full range of motion, no adenopathy, and thyroid normal DERMATOLOGY: Normal, without lesions, non-icteric, and non-hirsute BREAST: soft, non-tender, symmetric, no dominant mass, normal nipple-areolar complex, no lymphadenopathy, no nipple discharge, and scars consistent with lift, nipple sparring CHEST: Normal inspiratory effort ABDOMEN: soft, non-tender, no masses, and prior surgical scar(s) noted PELVIC: external genitalia normal, normal Bartholin's glands, urethra, Erhard's glands, no vulvar lesions, no cervical lesions, good vaginal support, physiologic discharge present, normal appearing perineal body and perianal region BIMANUAL: uterus normal size, shape and consistency, no adnexal masses, and non-tender RECTOVAGINAL: deferred NEURO: alert and oriented x3,exam grossly non-focal EXTREMITIES: normal ASSESSMENT/PLAN: 1) Health maintenance: Mammogram up to date Nutrition, exercise and routine health maintenance exams reviewed. Colon cancer screening: colonoscopy ordered 2) Follow up one year or sooner as needed Problem List Items Addressed This Visit Obesity, Class I, BMI 30-34.9 Current Assessment AND Plan Refer to [facility] wt mgmt, frustrated as regular workout routine not helping, is in meopause Relevant Orders CONSULT TO [facility] WEIGHT MANAGEMENT PROGRAM Vaginal dryness Overview Start vaginal estrogen 3x wkly 1/2 applicator Menopause Relevant Orders CONSULT TO [facility] WEIGHT MANAGEMENT PROGRAM Other Visit Diagnoses Encounter for gynecological examination (general) (routine) without abnormal findings - Primary Relevant Orders BARBRA SCREENING W BRENDA Encounter for screening mammogram for breast cancer Encounter for screening for malignant neoplasm of colon Relevant Orders CONSULT TO GASTROENTEROLOGY Bernarda Suggs MD [facility] 10-26-2023 History of Presen t illness Narrative Meghan is a 53 year old who presents for an annual gynecologic exam with complaints, menopausal symptoms. Has been working on physical health since 2020, doing orange theory Had tummy tuck and breast lift in 2022 On Paxil which helps with hot flashes Cut back EtOH which reduces hot flashes and hangover Biggest menopause concern is weight uses weight watchers, struggling to lose 30# when does protein feels gains does eggs, chicken, hebrew yogurt, Vaginal dryness/painful sex OTC not on HRT Postmenopausal: Yes since age HRT use: No. 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 Comment: and bilat salpingectomy 2010: FABRICIO Comment: D&C hysteroscopy No date: SALPINGECTOMY Comment: BTL FAMILY HISTORY Problem Relation Age of Onset Cancer Mother Uterine cancer Arrhythmia Mother A-fib Cardiomyopathy Father other (ICD) Father other (other) Brother valve disorder SOCIAL HISTORY Social History Tobacco Use Smoking status: Never Smokeless tobacco: Never Substance Use Topics Alcohol use: Yes Alcohol/week: 4.0 standard drinks of alcohol Types: 4 Glasses of Wine (5oz) per week Drug use: No REVIEW OF SYSTEMS Abdomen: No abdominal pain, nausea, vomiting, diarrhea, or constipation. No bloating, early satiety, indigestion, or increased flatulence. Bladder: No dysuria, gross hematuria, urinary frequency, urinary urgency, or incontinence Breast: No breast lumps, nipple d/c, overlying skin changes, redness or skin retraction Allergies and current medication updated:Yes EXAM: BP 122/78 Wt 192 lb 3.9 oz (87.2kg) GENERAL: pleasant, female in no apparent distress HEENT: Normocephalic, atraumatic, mucus membranes moist, and no lesions NECK: Supple, full range of motion, no adenopathy, and thyroid normal DERMATOLOGY: Normal, without lesions, non-icteric, and non-hirsute BREAST: soft, non-tender, symmetric, no dominant mass, normal nipple-areolar complex, no lymphadenopathy, no nipple discharge, and scars consistent with lift, nipple sparring CHEST: Normal inspiratory effort ABDOMEN: soft, non-tender, no masses, and prior surgical scar(s) noted PELVIC: external genitalia normal, normal Bartholin's glands, urethra, Erhard's glands, no vulvar lesions, no cervical lesions, good vaginal support, physiologic discharge present, normal appearing perineal body and perianal region BIMANUAL: uterus normal size, shape and consistency, no adnexal masses, and non-tender RECTOVAGINAL: deferred NEURO: alert and oriented x3,exam grossly non-focal EXTREMITIES: normal ASSESSMENT/PLAN: 1) Health maintenance: Mammogram up to date Nutrition, exercise and routine health maintenance exams reviewed. Colon cancer screening: colonoscopy ordered 2) Follow up one year or sooner as needed Problem List Items Addressed This Visit Obesity, Class I, BMI 30-34.9 Current Assessment & Plan Refer to [facility] wt bernard, frustrated as regular workout routine not helping, is in meopause Relevant Orders CONSULT TO [facility] WEIGHT MANAGEMENT PROGRAM Vaginal dryness Overview Start vaginal estrogen 3x wkly 1/2 applicator Menopause Relevant Orders CONSULT TO [facility] WEIGHT MANAGEMENT PROGRAM Other Visit Diagnoses Encounter for gynecological examination (general) (routine) without abnormal findings - Primary Relevant Orders BARBRA SCREENING W BRENDA Encounter for screening mammogram for breast cancer Encounter for screening for malignant neoplasm of colon Relevant Orders CONSULT TO GASTROENTEROLOGY Bernarda Suggs MD documented in this encounter [facility] 10-26-2023 Instructions Bernarda Suggs MD - 10/26/2023 10:01 AM EDT ACOG Screening Guidelines The following health screening schedule is recommended by the [employer] (ACOG). Some of these tests may be ordered or performed by your primary care doctor. Pap test screening The pap test looks at cells on the cervix (the opening from the vagina to the uterus) to look for cancer or pre-cancerous changes. These changes are caused by the human papillomavirus (HPV). Studies estimate that half of all women will test positive for this virus within 3 years of starting sexual activity. For young women with a normal immune system, 90% of HPV infections will resolve within 2 years. There is a vaccine available against some forms of HPV. This is recommended for girls and women age 9-45. For ages 9-14, two injections are given at 0 and 6 months. For ages 15-45, three injections are given at 0,2 and 6 months. Because this vaccine does not protect against all HPV types which can cause cervical cancer, women who received the vaccine still need pap tests. Pap smear screening should be started at age 21. The pap test should be done every 3 years from age 21-29. From age 30-65, pap smears can be done every 5 years if HPV test is negative or every 3 years if HPV testing is not done. For women over the age of 65, ACOG recommends against screening women who have had adequate prior screening and are not otherwise at high risk for cervical cancer. Women who have had a hysterectomy also do not need routine pap smear screening unless the pap smear was done for a cervical cancer or moderate to severe dysplasia. Breast cancer screening Mammogram should be performed every 1-2 years starting at age 40 and every year starting at age 50. Screening may be started earlier depending on family history. Cholesterol screening Lipid panel (cholesterol test) should be checked every 5 years starting at age 45. Diabetes screening Fasting glucose (blood sugar) test should be performed every 3 years starting at age 45. Colorectal cancer screening Starting at age 45, women should have a screening colonoscopy at least every 10 years. Screening may be started earlier depending on family history. Thyroid screening Thyroid function test (TSH) should be checked every 5 years starting at age 50. Bone mineral density screening All postmenopausal women age 65 and over and postmenopausal women with risk factors for osteoporosis should have a bone mineral density test performed. Risk factors include race, family history of osteoporosis, personal history of fractures, poor nutrition, smoking, heavy alcohol use, early menopause, low calcium intake and low body weight. Certain medical conditions and long-term use of some medications may also increase risk. documented in this encounter [facility] 09-27-2023 History of Presen t illness Narrative RADIOLOGY SERVICE PROGRESS NOTE SERVICE DATE: 09/27/2023 SERVICE TIME: 8:04 AM PATIENT IDENTITY VERIFICATION COMPLETED USING TWO (2) STANDARD IDENTIFIERS: Name and Date of confirmed by patient verbally and Name and Date of confirmed by identification band FALL SCREENING: Has the patient had 2 falls in the last year or 1 fall with injury or currently using an Ambulatory Assistive Device (Walker, Cane, Wheelchair, Crutches, etc.)? No PATIENT GENDER DATA: .female : No ALLERGIES: Reviewed and unchanged MEDICATIONS REVIEWED: Not applicable PATIENT RELEVANT IMPLANT DATA REVIEWED: Not Applicable PATIENT PRESENTS WITH AN IMPLANTABLE OR ATTACHED BAND STRAIGHTENER: No CREATININE: Creatinine Date Value Ref Range Status 08/31/2023 0.57 (L) 0.58 - 0.96 mg/dL Final 11/07/2017 0.65 0.58 - 0.96 mg/dL Final 11/09/2016 0.63 0.58 - 0.96 mg/dL Final Estimated Glomerular Filtration Rate Date Value Ref Range Status 08/31/2023 108 >=60 mL/min/1.73m Final Comment: Estimated Glomerular Filtration Rate (eGFR) is calculated using the 2020 CKD-EPI creatinine equation. This equation utilizes serum creatinine, sex, and age as parameters. The creatinine assay has traceable calibration to isotope dilution-mass spectrometry. Refer to KDIGO guidelines for clinical interpretation. In patients with unstable renal function, e.g. those with acute kidney injury, the eGFR may not accurately reflect actual GFR. eGFR- Date Value Ref Range Status 11/07/2017 >60 Final P.O.C.T. RESULTS: N/A September 27, [address] PERFORMED: No IV SITE: Ambulatory: A peripheral IV was started in the Right antecubital site with a Angio cath: 22 gauge. POST EXAM PIV STATUS: Discontinued PROCEDURE TYPE: NM Stress: 14.1 mCi [id number] was administered IV for Rest Imaging at 07:53 by J. 36.0 mCi Ig43s-[id number] was administered IV for Stress Imaging at 09:08 by . PATIENT DISCHARGED TO: Ambulatory patient, left [place] department area. A Diagnostic radioactive procedure has taken place, with no further precautions necessary other than routine body substance precautions. More information regarding radiation safety can be found using this link: [email or web address] [email or web address]-%20Diagnostic%20N uclear%20Medicine%20Procedures.p df SIGNATURE: HORACIO Muñiz PATIENT NAME: Meghan Culp DATE: September 27, 2023 TIME: 8:04 AM PAGER/CONTACT #: documented in this encounter [facility] 09-27-2023 Note HNO ID: [id number] Author: ALMA PINTO CT Service: Nuclear Medicine Author Type: Technologist Type: Progress Notes Filed: 09/27/2023 09:09 Note Text: RADIOLOGY SERVICE PROGRESS NOTE SERVICE DATE: 09/27/2023 SERVICE TIME: 8:04 AM PATIENT IDENTITY VERIFICATION COMPLETED USING TWO (2) STANDARD IDENTIFIERS: Name and Date of confirmed by patient verbally and Name and Date of confirmed by identification band FALL SCREENING: Has the patient had 2 falls in the last year or 1 fall with injury or currently using an Ambulatory Assistive Device (Walker, Cane, Wheelchair, Crutches, etc.)? No PATIENT GENDER DATA: .female : No ALLERGIES: Reviewed and unchanged MEDICATIONS REVIEWED: Not applicable PATIENT RELEVANT IMPLANT DATA REVIEWED: Not Applicable PATIENT PRESENTS WITH AN IMPLANTABLE OR ATTACHED BAND STRAIGHTENER: No CREATININE: Creatinine Date Value Ref Range Status 08/31/2023 0.57 (L) 0.58 - 0.96 mg/dL Final 11/07/2017 0.65 0.58 - 0.96 mg/dL Final 11/09/2016 0.63 0.58 - 0.96 mg/dL Final Estimated Glomerular Filtration Rate Date Value Ref Range Status 08/31/2023 108 >=60 mL/min/1.73m? Final Comment: Estimated Glomerular Filtration Rate (eGFR) is calculated using the 2020 CKD-EPI creatinine equation. This equation utilizes serum creatinine, sex, and age as parameters. The creatinine assay has traceable calibration to isotope dilution-mass spectrometry. Refer to KDIGO guidelines for clinical interpretation. In patients with unstable renal function, e.g. those with acute kidney injury, the eGFR may not accurately reflect actual GFR. eGFR- Date Value Ref Range Status 11/07/2017 >60 Final P.O.C.T. RESULTS: N/A September 27, [address] PERFORMED: No IV SITE: Ambulatory: A peripheral IV was started in the Right antecubital site with a Angio cath: 22 gauge. POST EXAM PIV STATUS: Discontinued PROCEDURE TYPE: NM Stress: 14.1 mCi [id number] was administered IV for Rest Imaging at 07:53 by PATRICIA. 36.0 mCi [id number]-[id number] was administered IV for Stress Imaging at 09:08 by . PATIENT DISCHARGED TO: Ambulatory patient, left [place] department area. A Diagnostic radioactive procedure has taken place, with no further precautions necessary other than routine body substance precautions. More information regarding radiation safety can be found using this link: [email or web address] [email or web address]-% 20Diagnostic%20Nuclear%20Medicin e%20Procedures.pdf SIGNATURE: HORACIO Muñiz PATIENT NAME: Meghan Ireland Robbi DATE: September 27, 2023 TIME: 8:04 AM PAGER/CONTACT #: [facility] 09-26-2023 Telephone encounter Note Spoke to pt regarding reminder and instructions for stress test tomorrow. This included where to check in, length of test and no caffeine for 12 hours prior to test, [facility] 09-26-2023 Miscellaneous Notes Spoke to pt regarding reminder and instructions for stress test tomorrow. This included where to check in, length of test and no caffeine for 12 hours prior to test, documented in this encounter [facility] 09-26-2023 Note Formatting of this n ote might be different from the original. September 27, 2023 PID: [id number] Meghan Culp [address] [place] [address] Dear Ms. Culp, We are pleased to inform you that the results of your recent breast imaging exam on 09/25/2023 are normal. Your mammogram demonstrates that you have dense breast tissue, which could hide abnormalities. Dense breast tissue, in and of itself, is a relatively common condition. Therefore, this information is not provided to cause undue concern; rather, it is to raise your awareness and promote discussion with your health care provider regarding the presence of dense breast tissue in addition to other risk factors. Early detection of cancer is very important. We also understand recommendations regarding breast cancer screening are controversial. Please discuss with your primary care provider which strategy is best for you and whether a mammogram is right for you. Your imaging studies and report will be kept on file at [facility] as part of your permanent medical record and are available for your continuing care. Thank you for allowing us to help in meeting your health care needs. Sincerely, Dr. Hanson Interpreting Radiologist [facility] (Normal over 40) [facility] 09-26-2023 Miscellaneous Notes September 27, 2023 PID: [id number] Meghan Culp [address] [place] [address] Dear Ms. Culp, We are pleased to inform you that the results of your recent breast imaging exam on 09/25/2023 are normal. Your mammogram demonstrates that you have dense breast tissue, which could hide abnormalities. Dense breast tissue, in and of itself, is a relatively common condition. Therefore, this information is not provided to cause undue concern; rather, it is to raise your awareness and promote discussion with your health care provider regarding the presence of dense breast tissue in addition to other risk factors. Early detection of cancer is very important. We also understand recommendations regarding breast cancer screening are controversial. Please discuss with your primary care provider which strategy is best for you and whether a mammogram is right for you. Your imaging studies and report will be kept on file at [facility] as part of your permanent medical record and are available for your continuing care. Thank you for allowing us to help in meeting your health care needs. Sincerely, Dr. Hanson Interpreting Radiologist [facility] (Normal over 40) documented in this encounter [facility] 09-25-2023 History of Presen t illness Narrative Radiology Service Progress Note PATIENT NAME: Meghan Culp DATE OF SERVICE: September 25, 2023 TIME: 2:57 PM PATIENT IDENTITY VERIFICATION COMPLETED USING TWO (2) IDENTIFIERS: Name and Date of confirmed by patient verbally. FALL SCREENING: Has the patient had 2 falls in the last year or 1 fall with injury or currently using an Ambulatory Assistive Device (Walker, Cane, Wheelchair, Crutches, etc.)? No PATIENT GENDER DATA: Female. status: : No status: NO. PATIENT RELEVANT IMPLANT DATA REVIEWED: Not Applicable PATIENT PRESENTS WITH AN IMPLANTABLE OR ATTACHED BAND STRAIGHTENER: No RADIOLOGY DEPARTMENT: Mammography PERIPHERAL IV DATA: Not applicable SIGNED BY: RIK Ochoa)(M) September 25, 2023 2:57 PM documented in this encounter [facility] 09-25-2023 Note HNO ID: [id number] Author: DOV SEAY RT (R) Service: Radiology Author Type: Technologist Type: Progress Notes Filed: 09/25/2023 14:57 Note Text: Radiology Service Progress Note PATIENT NAME: Meghan Culp DATE OF SERVICE: September 25, 2023 TIME: 2:57 PM PATIENT IDENTITY VERIFICATION COMPLETED USING TWO (2) IDENTIFIERS: Name and Date of confirmed by patient verbally. FALL SCREENING: Has the patient had 2 falls in the last year or 1 fall with injury or currently using an Ambulatory Assistive Device (Walker, Cane, Wheelchair, Crutches, etc.)? No PATIENT GENDER DATA: Female. status: : No status: NO. PATIENT RELEVANT IMPLANT DATA REVIEWED: Not Applicable PATIENT PRESENTS WITH AN IMPLANTABLE OR ATTACHED BAND STRAIGHTENER: No RADIOLOGY DEPARTMENT: Mammography PERIPHERAL IV DATA: Not applicable SIGNED BY: RIK Ochoa)(M) September 25, 2023 2:57 PM [facility] 09-13-2023 History of Presen t illness Narrative Images from the original note were not included. [facility] [place] SECTION OF REGIONAL CARDIOLOGY OUTPATIENT VISIT DATE 09/13/2023 OUTPATIENT VISIT TYPE NEW PRIMARY CARE PHYSICIAN: Lashawn Bryant (Ole) [address] [facility] [address] [place] [address] Patient is being seen at the request of the referring physician for Post ER visit follow up HISTORY OF PRESENT ILLNESS: Ms. Culp is a 52 year old pleasant highly active female, history of Factor V Leiden mutation, hypothyroidism, who presents for post ER visit follow up. She presented to the ED on 08/31/23 with chest pain which woke her up from sleep. Radiated to the neck and jaw and bilateral shoulders. She went back to sleep. When she woke, she still experienced L sided hest and shoulder pain, however less intense. Episode lasted approximately 1.5 hrs long. hstrop 8--> <6. EKG showed sinus bradycardia HR 48. She was discharged home. She denies SOB, palpitations, orthopnea, PND, leg swelling, lightheadedness, syncope. She engages in [employer] and exercises 3-4x week. She runs 2 miles on the treadmill @5-6mph, exercises on the erg and lifts light weights. She runs 5k races 6x per year. She also walks 3 miles 5x per week. Steady state exercise HR in the 170s. Her father was diagnosed with cardiomyopathy. He is planned for ICD placement this week. No history of CAD to her knowledge. She is planning to run a 5k around September 27. 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 08/28/2012 and bilat salpingectomy 2009 [facility] hysteroscopy SALPINGECTOMY BTL Social History Tobacco Use Smoking status: Never Smokeless tobacco: Never Substance Use Topics Alcohol use: Yes Alcohol/week: 4.0 standard drinks of alcohol Types: 4 Glasses of Wine (5oz) per week Drug use: No FAMILY HISTORY Problem Relation Age of Onset Cancer Mother Uterine cancer Arrhythmia Mother A-fib Cardiomyopathy Father other (ICD) Father other (other) Brother valve disorder ALLERGIES Allergen Reactions Adhesive Tape-Silic* Rash Pt gets blistering CURRENT MEDICATIONS: atorvastatin (LIPITOR) 20 mg tablet Take 1 tablet by mouth every afternoon. traMADol (ULTRAM) 50 mg tablet Take 50 mg by mouth two times a day as needed for pain. valACYclovir (VALTREX) 500 mg tablet TAKE 1 TABLET BY MOUTH TWICE A DAY FOR 3 DAYS (Patient taking differently: TAKE 1 TABLET BY MOUTH TWICE A DAY FOR 3 DAYS PRN) PARoxetine (PAXIL) 20 mg tablet Take 20 mg by mouth once daily. Black Cohosh 200 mg cap 1 a day (Patient not taking: Reported on 09/13/2023) PHYSICAL EXAMINATION: BP 104/68 Pulse 65 Ht 165.1 cm (5' 5) Wt 85.7 kg (189 lb) SpO2 98% BMI 31.45 kg/m General: Appears comfortable in no apparent cardiopulmonary distress Neck: No JVD, no bruits CVS: S1, S2, No m/r/g Chest: CTAB Abd: Soft, nontender, no masses, BS present Ext: No pedal edema, pedal pulses 2+ bilaterally Neuro: No focal neurological deficits CARDIOVASCULAR MEDICINE TESTING: Last EKG Result Conclusion EKG Collected: 08/31/2023 9:53 AM (Final result) Impression: SINUS BRADYCARDIA LEFT AXIS DEVIATION ABNORMAL ECG NO PREVIOUS ECGS AVAILABLE Confirmed by MD MEY, [facility] ([id number]) on 08/31/2023 2:59:43 PM ASSESSMENT/PLAN: 1. Other chest pain - ICD9: 786.59, ICD10: R07.89 - Arrange for echocardiogram and nuclear stress test. Barbie Pearl MD, [facility] Non invasive and Sports Supervisor Sewing Department documented in this encounter [facility] 09-13-2023 Note HNO ID: [id number] Author: BARBIE PEARL MD Service: ? Author Type: Physician Type: Progress Notes Filed: 09/13/2023 15:58 Note Text: [facility] [place] SECTION OF REGIONAL CARDIOLOGY OUTPATIENT VISIT DATE 09/13/2023 OUTPATIENT VISIT TYPE NEW PRIMARY CARE PHYSICIAN: Lashawn Bryant ([facility]) [address] [facility] [address] [place] [id number] Patient is being seen at the request of the referring physician for Post ER visit follow up HISTORY OF PRESENT ILLNESS: Ms. Culp is a 52 year old pleasant highly active female, history of Factor V Leiden mutation, hypothyroidism, who presents for post ER visit follow up. She presented to the ED on 08/31/23 with chest pain which woke her up from sleep. Radiated to the neck and jaw and bilateral shoulders. She went back to sleep. When she woke, she still experienced L sided hest and shoulder pain, however less intense. Episode lasted approximately 1.5 hrs long. hstrop 8--> <6. EKG showed sinus bradycardia HR 48. She was discharged home. She denies SOB, palpitations, orthopnea, PND, leg swelling, lightheadedness, syncope. She engages in [employer] and exercises 3-4x week. She runs 2 miles on the treadmill @5-6mph, exercises on the erg and lifts light weights. She runs 5k races 6x per year. She also walks 3 miles 5x per week. Steady state exercise HR in the 170s. Her father was diagnosed with cardiomyopathy. He is planned for ICD placement this week. No history of CAD to her knowledge. She is planning to run a 5k around September 27. 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 08/28/2012 and bilat salpingectomy FABRICIO 2009 [facility] hysteroscopy SALPINGECTOMY BTL Social History Tobacco Use Smoking status: Never Smokeless tobacco: Never Substance Use Topics Alcohol use: Yes Alcohol/week: 4.0 standard drinks of alcohol Types: 4 Glasses of Wine (5oz) per week Drug use: No FAMILY HISTORY Problem Relation Age of Onset Cancer Mother Uterine cancer Arrhythmia Mother A-fib Cardiomyopathy Father other (ICD) Father other (other) Brother valve disorder ALLERGIES Allergen Reactions Adhesive Tape-Silic* Rash Pt gets blistering CURRENT MEDICATIONS: atorvastatin (LIPITOR) 20 mg tablet Take 1 tablet by mouth every afternoon. traMADol (ULTRAM) 50 mg tablet Take 50 mg by mouth two times a day as needed for pain. valACYclovir (VALTREX) 500 mg tablet TAKE 1 TABLET BY MOUTH TWICE A DAY FOR 3 DAYS (Patient taking differently: TAKE 1 TABLET BY MOUTH TWICE A DAY FOR 3 DAYS PRN) PARoxetine (PAXIL) 20 mg tablet Take 20 mg by mouth once daily. Black Cohosh 200 mg cap 1 a day (Patient not taking: Reported on 09/13/2023) PHYSICAL EXAMINATION: BP 104/68 Pulse 65 Ht 165.1 cm (5' 5) Wt 85.7 kg (189 lb) SpO2 98% BMI 31.45 kg/m? General: Appears comfortable in no apparent cardiopulmonary distress Neck: No JVD, no bruits CVS: S1, S2, No m/r/g Chest: CTAB Abd: Soft, nontender, no masses, BS present Ext: No pedal edema, pedal pulses 2+ bilaterally Neuro: No focal neurological deficits CARDIOVASCULAR MEDICINE TESTING: Last EKG Result Conclusion EKG Collected: 08/31/2023 9:53 AM (Final result) Impression: SINUS BRADYCARDIA LEFT AXIS DEVIATION ABNORMAL ECG NO PREVIOUS ECGS AVAILABLE Confirmed by MD MEY, [facility] ([id number]) on 08/31/2023 2:59:43 PM ASSESSMENT/PLAN: 1. Other chest pain - ICD9: 786.59, ICD10: R07.89 - Arrange for echocardiogram and nuclear stress test. Barbie Pearl MD, [facility] Non invasive and Sports Supervisor Sewing Department [facility] 08-22-2023 Note Addended by: ADITHYA DIXON on: 08/22/2023 11:44 AM Modules accepted: Orders [facility] 08-22-2023 Miscellaneous Notes Addended by: ADITHYA DIXON on: 08/22/2023 11:44 AM Modules accepted: Orders Patient is requesting an order for a mammogram. She has an upcoming Annual appt in October. documented in this encounter [facility] 08-22-2023 Telephone encounter Note Patient is requesting an order for a mammogram. She has an upcoming Annual appt in October. [facility] 10-19-2021 History of Presen t illness Narrative Radiology Service Progress Note PATIENT NAME: Meghan Moreno DATE OF SERVICE: October 19, 2021 TIME: 4:45 PM PATIENT IDENTITY VERIFICATION COMPLETED USING TWO (2) IDENTIFIERS: Name and Date of confirmed by patient verbally. FALL SCREENING: Has the patient had 2 falls in the last year or 1 fall with injury or currently using an Ambulatory Assistive Device (Walker, Cane, Wheelchair, Crutches, etc.)? No PATIENT GENDER DATA: Female. status: : No status: NO. PATIENT RELEVANT IMPLANT DATA REVIEWED: Not Applicable RADIOLOGY DEPARTMENT: Mammography PERIPHERAL IV DATA: Not applicable SIGNED BY: HORACIO Evans October 19, 2021 4:45 PM documented in this encounter [facility] Evaluation note Diagnosis Encounter for screening mammogram for malignant neoplasm of breast Other screening mammogram [facility] Diagnosis Onset Date Resolution Status Acute bacterial bronchitis a cute Bilateral otitis media acute Acute bacterial bronchitis a cute Bilateral otitis media acute Fracture of toe of left foot acute Wellness examination [facility] Work Phone: Evaluation note* Diagnosis Encounter for screening mammogram for malignant neoplasm of breast- Primary Other screening mammogram [facility] Diagnosis Chest pain, unspecified type [facility] Diagnosis Chest pain, unspecified type documented in this encounter [facility] note* Diagnosis Encounter for screening mammogram for malignant neoplasm of breast Other screening mammogram documented in this encounter [facility] note* Diagnosis Encounter for gynecological examination (general) (routine) without abnormal findings- Primary Encounter for screening mammogram for breast cancer Obesity, Class I, BMI 30-34.9 Obesity, unspecified Encounter for screening for malignant neoplasm of colon Special screening for malignant neoplasms, colon Menopause Symptomatic menopausal or female climacteric states Vaginal dryness Other specified symptom associated with female genital organs * Assessment & Plan Note - Bernarda Suggs MD - 10/26/2023 3:13 PM EDT Associated Problem(s): Obesity, Class I, BMI 30-34.9 Refer to [facility] wt bernard, frustrated as regular workout routine not helping, is in meopause documented in this encounter [facility] for referral (narrative)* Diagnostic Procedure Only (Routine) - Closed Specialty Diagnoses / Procedures Referred By Peyman guzman Referred To Contact [facility] Diagnoses Encounter for screening mammogram for malignant neoplasm of breast Procedures BARBRA SCREENING SCREENING MAMMOGRAPHY BI 2-VIEW BREAST INC Will Benítez MD [address] [address] [employer] [facility] [place] [address] Referral ID Status Reason Start Date Expiration Date V isits Requested Visits Authorized [id number] Closed Auto-Generate d Referral 02/03/2021 03/05/2022 1 1 [facility] for referral (narrative)* Diagnostic Procedure Only (Routine) - Pending Review Specialty Diagnoses / Procedures Referred By Peyman guzman Referred To Contact [facility] Diagnoses Encounter for screening mammogram for malignant neoplasm of breast Procedures BARBRA SCREENING W BRENDA SCREENING DIGITAL BREAST TOMOSYNTHESIS BI SCREENING MAMMOGRAPHY BI 2-VIEW BREAST INC CAD Will Knox MD [address] [address] [facility] [address] [place] [address] Referral ID Status Reason Start Date Expiration Date Visits Requested Visits Authorized [id number] Pending Review Auto-Generat ed Referral 08/22/2023 09/20/2024 1 1 [facility] for referral (narrative)* Diagnostic Procedure Only (Routine) - Authorized Specialty Diagnoses / Procedures Referred By Contac t Referred To Contact [facility] Diagnoses Chest pain, unspecified type Procedures NM CARDIAC PERF STRESS/EXERCISE MYOCARDIAL SPECT MULTIPLE STUDIES Barbie Pearl MD [address] [place] [address] [facility] [address] [place] [address] Referral ID Status Reason Start Date Expiration Date V isits Requested Visits Authorized [id number] Authorized 09/13/2023 11/12/2023 2 2 * Outpatient Procedure (Routine) - Authorized Specialty Diagnoses / Procedures Referred By Contac t Referred To Contact [facility] [place] Diagnoses Other chest pain Chest pain, unspecified type Procedures ECHO ECHO TTHRC R-T 2D W/WOM-MODE COMPL SPEC&COLR D Barbie Pearl MD [address] [place] [address] [facility] [place] [address] [place] [address] Referral ID Status Reason Start Date Expiration Date Visits Requested Visits Authorized [id number] Authorized Auto-Generat ed Referral 09/13/2023 09/12/2024 1 1 [facility] for referral (narrative)* Outpatient Procedure (Routine) - Closed Specialty Diagnoses / Procedures Referred By Contac t Referred To Contact [facility] [place] Diagnoses Other chest pain Chest pain, unspecified type Procedures ECHO ECHO TTHRC R-T 2D W/WOM-MODE COMPL SPEC&COLR Barbie Cool MD [address] [place] [address] [facility] [place] [address] [place] [address] Referral ID Status Reason Start Date Expiration Date V isits Requested Visits Authorized [id number] Closed Auto-Generate d Referral 09/13/2023 09/12/2024 1 1 [facility] for referral (narrative)* Diagnostic Procedure Only (Routine) - Closed Specialty Diagnoses / Procedures Referred By Peyman guzman Referred To Contact [facility] Diagnoses Chest pain, unspecified type Procedures NM CARDIAC PERF STRESS/EXERCISE MYOCARDIAL SPECT MULTIPLE STUDIES Barbie Pearl MD [address] [place] [address] [facility] [address] [place] [address] Referral ID Status Reason Start Date Expiration Date Visits Re quested Visits Authorized [id number] Closed 09/13/2023 11/12/2023 2 2 [facility] for visit Narrative* Diagnostic Procedure Only (Routine) - Closed Specialty Diagnoses / Procedures Referred By Peyman guzman Referred To Contact [facility] Diagnoses Encounter for screening mammogram for malignant neoplasm of breast Procedures BARBRA SCREENING SCREENING MAMMOGRAPHY BI 2-VIEW BREAST INC CAD Will Knox MD [address] [place] [address] [facility] [address] [place] [phone] Referral ID Status Reason Start Date Expiration Date V isits Requested Visits Authorized [id number] Closed Auto-Generate d Referral 02/03/2021 03/05/2022 1 1 [facility] for visit Narrative* Outpatient Procedure (Routine) - Closed Specialty Diagnoses / Procedures Referred By Peyman guzman Referred To [facility] Diagnoses Other chest pain Chest pain, unspecified type Procedures ECHO ECHO [facility] R-T 2D W/WOM-MODE COMPL SPEC&COLR D Barbie Pearl MD [address] [place] [address] [place] [address] [facility] [address] [place] [address] Referral ID Status Reason Start Date Expiration Date V isits Requested Visits Authorized [id number] Closed Auto-Generate d Referral 09/13/2023 09/12/2024 1 1 [facility] for visit Narrative* Diagnostic Procedure Only (Routine) - Closed Specialty Diagnoses / Procedures Referred By Peyman t Referred To Contact [facility] Diagnoses Encounter for screening mammogram for malignant neoplasm of breast Procedures BARBRA SCREENING W BRENDA SCREENING DIGITAL BREAST TOMOSYNTHESIS BI SCREENING MAMMOGRAPHY BI 2-VIEW BREAST INC CAD Will Knox MD [address] [place] [address] [facility] [address] [place] [address] Referral ID Status Reason Start Date Expiration Date V isits Requested Visits Authorized [id number] Closed Auto-Generate d Referral 08/22/2023 09/20/2024 1 1 [facility] for visit Narrative* Diagnostic Procedure Only (Routine) - Closed Specialty Diagnoses / Procedures Referred By Peyman guzman Referred To Contact [facility] Diagnoses Chest pain, unspecified type Procedures NM CARDIAC PERF STRESS/EXERCISE MYOCARDIAL SPECT MULTIPLE STUDIES Barbie Pearl MD [address] [place] [id number] [facility] [address] [place] [address] Referral ID Status Reason Start Date Expiration Date Visits Re quested Visits Authorized [id number] Closed 09/13/2023 11/12/2023 [address] [facility] Advance Directives No Advanced Directives Records FoundDocuments on File Type Date Recorded Patient Icu Manager Expl anation Advance Directive(s) 09/30/2018 10:53 AM Chief Complaint and Reason for Visit Chief Complaint Sinus & cough L) foot & L) Ear pain Cough Preventive wellness exam PE/Labs drawn Reason for Visit Acute bacterial bron chitis Bilateral otitis media Acute bacterial bronchitis Bilateral otitis media Fracture of toe of left foot Wellness examination Summary Purpose Family History No Family History Records Found Reason for Referral Specialty Diagnoses / Procedures Referred By Peyman guzman Referred To Contact Diagnoses Obesity, Class I, BMI 30-34.9 Menopause Procedures CONSULT TO [facility] WEIGHT MANAGEMENT PROGRAM OFFICE/OUTPATIENT [facility] 60 MINUTES Bernarda Suggs MD [address] [place] [address] Referral ID Status Reason Start Date Expiration Date Visits Requested Visits Authorized [id number] Authorized PCP Requested Referral Auto-Generate d Referral 10/26/2023 10/25/2024 1 1 Specialty Diagnoses / Procedures Referred By Contac t Referred To Contact Gastroenterology Diagnoses Encounter for screening for malignant neoplasm of colon Procedures CONSULT TO GASTROENTEROLOGY OFFICE/OUTPATIENT [facility] 60 MINUTES Bernarda Suggs MD [address] [place] [address] Referral ID Status Reason Start Date Expiration Date Visits Requested Visits Authorized [id number] Authorized PCP Requested Referral 10/26/2023 10/25/2024 1 1 Specialty Diagnoses / Procedures Referred By Contac t Referred To Contact [facility] Diagnoses Encounter for gynecological examination (general) (routine) without abnormal findings Procedures BARBRA SCREENING W BRENDA BARBRA SCREENING W BRENDA SCREENING DIGITAL BREAST TOMOSYNTHESIS BI SCREENING MAMMOGRAPHY BI 2-VIEW BREAST INC CAD Bernarda Suggs MD [address] [place] [address] [facility] [address] [place] [address] Referral ID Status Reason Start Date Expiration Date Visits Requested Visits Authorized [id number] New Request Auto-Generat ed Referral 10/26/2023 11/24/2024 1 1 Additional Source Comments Source Comments (unrecognize d section and content) In the event this informatio n is protected by the Federal Confidentiality of Alcohol and Drug Abuse Patient Records regulations: The Federal rules restrict any use of the information to criminally investigate or prosecute any alcohol or drug abuse patient.[facility] the event this information is protected by the Federal Confidentiality of Alcohol and Drug Abuse Patient Records regulations: The Federal rules restrict any use of the information to criminally investigate or prosecute any alcohol or drug abuse patient.[facility] the event this information is protected by the Federal Confidentiality of Alcohol and Drug Abuse Patient Records regulations: The Federal rules restrict any use of the information to criminally investigate or prosecute any alcohol or drug abuse patient.[facility] the event this information is protected by the Federal Confidentiality of Alcohol and Drug Abuse Patient Records regulations: The Federal rules restrict any use of the information to criminally investigate or prosecute any alcohol or drug abuse patient.[facility] the event this information is protected by the Federal Confidentiality of Alcohol and Drug Abuse Patient Records regulations: The Federal rules restrict any use of the information to criminally investigate or prosecute any alcohol or drug abuse patient.[facility] the event this information is protected by the Federal Confidentiality of Alcohol and Drug Abuse Patient Records regulations: The Federal rules restrict any use of the information to criminally investigate or prosecute any alcohol or drug abuse patient.[facility] the event this information is protected by the Federal Confidentiality of Alcohol and Drug Abuse Patient Records regulations: The Federal rules restrict any use of the information to criminally investigate or prosecute any alcohol or drug abuse patient.[facility] the event this information is protected by the Federal Confidentiality of Alcohol and Drug Abuse Patient Records regulations: The Federal rules restrict any use of the information to criminally investigate or prosecute any alcohol or drug abuse patient.[facility] the event this information is protected by the Federal Confidentiality of Alcohol and Drug Abuse Patient Records regulations: The Federal rules restrict any use of the information to criminally investigate or prosecute any alcohol or drug abuse patient.[facility] the event this information is protected by the Federal Confidentiality of Alcohol and Drug Abuse Patient Records regulations: The Federal rules restrict any use of the information to criminally investigate or prosecute any alcohol or drug abuse patient.[facility] the event this information is protected by the Federal Confidentiality of Alcohol and Drug Abuse Patient Records regulations: The Federal rules restrict any use of the information to criminally investigate or prosecute any alcohol or drug abuse patient.[facility] the event this information is protected by the Federal Confidentiality of Alcohol and Drug Abuse Patient Records regulations: The Federal rules restrict any use of the information to criminally investigate or prosecute any alcohol or drug abuse patient.[facility] the event this information is protected by the Federal Confidentiality of Alcohol and Drug Abuse Patient Records regulations: The Federal rules restrict any use of the information to criminally investigate or prosecute any alcohol or drug abuse patient.[facility] the event this information is protected by the Federal Confidentiality of Alcohol and Drug Abuse Patient Records regulations: The Federal rules restrict any use of the information to criminally investigate or prosecute any alcohol or drug abuse patient.[facility] the event this information is protected by the Federal Confidentiality of Alcohol and Drug Abuse Patient Records regulations: The Federal rules restrict any use of the information to criminally investigate or prosecute any alcohol or drug abuse patient.[facility] the event this information is protected by the Federal Confidentiality of Alcohol and Drug Abuse Patient Records regulations: The Federal rules restrict any use of the information to criminally investigate or prosecute any alcohol or drug abuse patient.[facility] Care Teams (unrecognized sec tion and content) Section Leader And Machine Setter Relationship Specialty Start Date End Date Lashawn Bryant, FABIOLA.FIRE POT OPERATOR [address] [phone] PCP - General Family Practice 12/17/18 Section Leader And Machine Setter Relationship Specialty Start Date End Date Lashawn Bryant, BED SPRING MAKER.FIRE POT OPERATOR PCP - General Family Medicine 12/17/18 Section Leader And Machine Setter Relationship Specialty Start Date End Date Lashawn Bryant, BED SPRING MAKER.FIRE POT OPERATOR [address] [place], [place] [phone] PCP - General Family Medicine 12/17/18 Team Status: Active Member Role Status Dates Lashawn Bryant CORE RESCUER, CORE RESCUER-C Primary Care Provider Active Team Status: Inactive Member Role Status Dates Lashawn Bryant CORE RESCUER, CORE RESCUER-C Primary Care Pr ovider, Attending Provider, Referring Provider Active Team Status: Inactive Member Role Status Dates Lashawn Bryant CORE RESCUER, CORE RESCUER-C Primary Care Provider, Attend ing Provider Active Section Leader And Machine Setter Relationship Specialty Start Date End Date Lashawn Bryant, BED SPRING MAKER.FIRE POT OPERATOR [address] [place] [address] PCP - General Family Medicine 12/17/18 Section Leader And Machine Setter Relationship Specialty Start Date End Date Lashawn Bryant, BED SPRING MAKER.FIRE POT OPERATOR [address] [place], [place] [phone] PCP - General Family Medicine 12/17/18 Section Leader And Machine Setter Relationship Specialty Start Date End Date Lashawn Bryant, BED SPRING MAKER.FIRE POT OPERATOR [address] [place], [place] [phone] PCP - General Family Medicine 12/17/18 Section Leader And Machine Setter Relationship Specialty Start Date End Date Lashawn Bryant, BED SPRING MAKER.FIRE POT OPERATOR [address] [place], [place] [phone] PCP - General Family Medicine 12/17/18 Section Leader And Machine Setter Relationship Specialty Start Date End Date Lashawn Bryant, BED SPRING MAKER.FIRE POT OPERATOR [address] [place], [place] [phone] PCP - General Family Medicine 12/17/18 Section Leader And Machine Setter Relationship Specialty Start Date End Date Lashawn Bryant, BED SPRING MAKER.FIRE POT OPERATOR [address] [place], [place] [phone] PCP - General Family Medicine 12/17/18 Section Leader And Machine Setter Relationship Specialty Start Date End Date Lashawn Bryant, BED SPRING MAKER.FIRE POT OPERATOR [address] [place], [place] [phone] PCP - General Family Medicine 12/17/18 Section Leader And Machine Setter Relationship Specialty Start Date End Date Lashawn Bryant, BED SPRING MAKER.FIRE POT OPERATOR [address] [place] [address] PCP - General Family Medicine 12/17/18 Section Leader And Machine Setter Relationship Specialty Start Date End Date Lashawn Bryant, BED SPRING MAKER.FIRE POT OPERATOR [address] [place], [place] [phone] PCP - General Family Medicine 12/17/18 Section Leader And Machine Setter Relationship Specialty Start Date End Date Lashawn Bryant, BED SPRING MAKER.FIRE POT OPERATOR [address] [place], [place] [phone] PCP - General Family Medicine 12/17/18 Reason for Visit (unrecogniz ed section and content) Reason Comments Refill Request Reason Onset Date Comments Refill Request 08/22/2023 Reason Comments Med Change Request Reason Comments New Patient New Pt: Pt had recen t episode of chest pain. Describes it as starting as sharp and turned into deep ache. Radiated into left shoulder. Reason Comments Reminder Call Reason Comments Well Woman Goals (unrecognized section and content) Goals may be documented in a n alternate section INFORMATION SOURCE (unrecogn ized section and content) DATE CREATED AUTHOR 06/02/2022 [facility] DATE CREATED AUTHOR AUTHOR'S ORGANIZ ATION 11/26/2022 [facility] DATE CREATED AUTHOR AUTHOR'S ORGANIZ ATION 09/28/2023 [facility] DATE CREATED AUTHOR AUTHOR'S ORGANIZ ATION 10/28/2023 [facility] DATE CREATED AUTHOR AUTHOR'S ORGANIZ ATION 08/21/2024 [facility] FOR RECORDS PERTAINING TO PATIENTS WHO ARE OR HAVE BEEN ENROLLED IN A CHEMICAL DEPENDENCY/SUBSTANCEABUSE PROGRAM, SOME INFORMATION MAY BE OMITTED. This clinical summary was aggregated from multiple sources. Caution should be exercised in using it in the provision of clinical care. This summary normalizes information from multiple sources, and as a consequence, information in this document may materially change the coding, format and clinical context of patient data. In addition, data may be omitted in some cases. CLINICAL DECISIONS SHOULD BE BASED ON THE PRIMARY CLINICAL RECORDS. [employer] [facility]. provides no warranty or guarantee of the accuracy or completeness of information in this document.
--- OUTSIDE RECORDS SUMMARY | 2025-01-22 22:38 | XMS RPT_ITS | CCD ---
Author Organization [facility] Care Team Providers Care Plant And Machinery Valuer Name Role Phone Manny HICKS.MICHAEL, Lashawn L Primary Care Provide r Manny FARM CONTRACTOR, Lashawn Attending Unavailable Manny FARM CONTRACTOR, Lashawn Primary Care Unavailable BETHEL JOYCE Attending Daisyv janel Bryant COOKIE MIXER HELPER.CASINO GAMING WORKER, Lashawn L Primary Care Provide r PROVIDER, [...] to adverse reactions to drug 09-13-2023 Rash [facility] Medications Current Medications Medication Drug Class(es) Dates [...] by mouth once daily. 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 Other injuries and conditions [...] Anion gap [Moles/Vol] 10 mmol/L Normal 8-15 [facility] Comment on above: Order Comment: Speci men Type: BLOOD SPECIMENOrdering Facility: [facility] Address: [address] [place] [address] Performed By: #### 2 4321-2 ####[facility] [id number] [place] [address] [place] Calcium [Mass/Vol] 10.2 mg/dL Normal 8.5-10.2 [facility] Comment on above: Order Comment: Speci men Type: BLOOD SPECIMENOrdering Facility: [facility] Address: [address] [place] [address] Performed By: #### 2 4321-2 ####[facility] [place] LABCLIA [id number] [place] [address] [place] Chloride [Moles/Vol] 104 mmol/L Normal 98-107 [facility] Comment on above: Order Comment: Speci men Type: BLOOD SPECIMENOrdering Facility: [facility] Address: [address] [place] [address] Performed By: #### 2 4321-2 ####[facility] [place] LABCLIA [id number] [place] [address] [facility] [place] CO2 [Moles/Vol] 26 mmol/L Normal 22-30 [facility] Comment on above: Order Comment: Speci men Type: BLOOD SPECIMENOrdering Facility: [facility] Address: [address] [place] [address] Performed By: #### 2 4321-2 ####[facility] LABCLIA [id number] [place] [address] [facility] Creatinine [Mass/Vol] 0.58 mg/dL Normal 0.58-0.96 [facility] Comment on above: Order Comment: Speci men Type: BLOOD SPECIMENOrdering Facility: [facility] Address: [address] [place] [address] Performed By: #### 2 4321-2 ####[facility] LABCLIA [id number] [place] [address] [facility] Creatinine and Glomerular filtration rate.predicted panel (S/P/Bld) 107 mL/min/1.73m??? Normal >=60 [facility] Comment on above: Order Comment: Speci men Type: BLOOD SPECIMENOrdering Facility: [facility] Address: [address] [place] [address] Result Comment: Ester mated Glomerular Filtration Rate [...] actual GFR. Performed By: #### 2 4321-2 ####[facility] LABCLIA [id number] [place] [address] [place] Glucose [Mass/Vol] 88 mg/dL Normal 74-99 [facility] Comment on above: Order Comment: Cameron matamoros Type: BLOOD SPECIMENOrdering Facility: [facility] Address: [address] [place] [address] Result Comment: The [place] Diabetes Association (ADA) provides guidance for cutoff [...] Standards of Medical Care in Diabetes 2016, [place] [employer] Association. Diabetes Care. 2016.39(Suppl 1). Performed By: #### 2 4321-2 ####[facility] LABCLIA [id number] [place] [address] [place] Potassium [Moles/Vol] 3.9 mmol/L Normal 3.7-5.1 [facility] Comment on above: Order Comment: Cameron matamoros Type: BLOOD SPECIMENOrdering Facility: [facility] Address: [address] [place] [address] Performed By: #### 2 4321-2 ####[facility] LABCLIA [id number] [place] [address] [place] Sodium [Moles/Vol] 140 mmol/L Normal 136-144 [facility] Comment on above: Order Comment: Cameron matamoros Type: BLOOD SPECIMENOrdering Facility: [facility] Address: [address] [place], [place] [address] Performed By: #### 2 4321-2 ####[facility] LABCLIA [id number] [place] [address] [place] [facility] Urea nitrogen [Mass/Vol] 10 mg/dL Normal 7-21 [facility] Comment on above: Order Comment: Speci men Type: BLOOD SPECIMENOrdering Facility: [facility] Address: [address] [place] [address] Performed By: #### 2 4321-2 ####[facility] [place] LABCLIA [id number] [place] [address] [place] [facility] CBC W Auto Differential pane l (Bld)on 08-15-2024 Basophils (Bld) [#/Vol] 0.03 10*3/uL Normal <0.11 [facility] Comment on above: Order Comment: Speci men Type: BLOOD SPECIMENOrdering Facility: [facility] Address: [address] [place] [address] Performed By: #### 5 7021-8 ####[facility] LABCLIA [id number] [place] [id number] [place] Basophils/100 WBC (Bld) 0.5 % Normal [facility] Comment on above: Order Comment: Speci men Type: BLOOD SPECIMENOrdering Facility: [facility] Address: [address] [place] [address] Performed By: #### 5 7021-8 ####[facility] LABCLIA [id number] [place] [id number] [facility] Differential cell count method Nom (Bld) Auto Normal [facility] Comment on above: Order Comment: Speci men Type: BLOOD SPECIMENOrdering Facility: [facility] Address: [address] [place] [address] Performed By: #### 5 7021-8 ####[facility] [place] LABCLIA [id number] [place] [address] [place] Eosinophils (Bld) [#/Vol] 0.09 10*3/uL Normal <0.46 [facility] Comment on above: Order Comment: Speci men Type: BLOOD SPECIMENOrdering Facility: [facility] Address: [address] [place] [address] Performed By: #### 5 7021-8 ####[facility] [place] LABCLIA [id number] [place] [address] [place] Eosinophils/100 WBC (Bld) 1.6 % Normal [facility] Comment on above: Order Comment: Speci men Type: BLOOD SPECIMENOrdering Facility: [facility] Address: [address] [place] [address] Performed By: #### 5 7021-8 ####[facility] [place] LABCLIA [id number] [place] [address] [place] Erythrocyte distribution width (RBC) [Ratio] 13.1 % Normal 11.5-15.0 [facility] Comment on above: Order Comment: Speci men Type: BLOOD SPECIMENOrdering Facility: [facility] Address: [address] [place] [address] Performed By: #### 5 7021-8 ####[facility] [place] LABCLIA [id number] [place] [address] [place] Hematocrit (Bld) [Volume fraction] 41.0 % Normal 36.0-46.0 [facility] Comment on above: Order Comment: Speci men Type: BLOOD SPECIMENOrdering Facility: [facility] Address: [address] [place] [address] Performed By: #### 5 7021-8 ####[facility] [place] LABCLIA [id number] [place] [address] [place] Hemoglobin (Bld) [Mass/Vol] 14.1 g/dL Normal 11.5-15.5 [facility] Comment on above: Order Comment: Speci men Type: BLOOD SPECIMENOrdering Facility: [facility] Address: [address] [place] [address] Performed By: #### 5 7021-8 ####[facility] [place] LABCLIA [id number] [place] [address] [place] Immature granulocytes (Bld) [#/Vol] 10*3/uL Normal <0.10 [facility] Comment on above: Order Comment: Speci men Type: BLOOD SPECIMENOrdering Facility: [facility] Address: [address] [place] [address] Performed By: #### 5 7021-8 ####[facility] [place] LABCLIA [id number] [place] [address] [place] [facility] Immature granulocytes/100 WBC (Bld) 0.2 % Normal [facility] Comment on above: Order Comment: Speci men Type: BLOOD SPECIMENOrdering Facility: [facility] Address: [address] [place] [address] Performed By: #### 5 7021-8 ####[facility] [place] LABCLIA [id number] [place] [address] [place] Lymphocytes (Bld) [#/Vol] 1.48 10*3/uL Normal 1.00-4.00 [facility] Comment on above: Order Comment: Speci men Type: BLOOD SPECIMENOrdering Facility: [facility] Address: [address] [place] [address] Performed By: #### 5 7021-8 ####[facility] [place] LABCLIA [id number] [place] [address] [place] [facility] Lymphocytes/100 WBC (Bld) 25.8 % Normal [facility] Comment on above: Order Comment: Speci men Type: BLOOD SPECIMENOrdering Facility: [facility] Address: [address] [place] [address] Performed By: #### 5 7021-8 ####[facility] [place] LABCLIA [id number] [place] [address] [place] MCH (RBC) [Entitic mass] 30.6 pg Normal 26.0-34.0 [facility] Comment on above: Order Comment: Speci men Type: BLOOD SPECIMENOrdering Facility: [facility] Address: [address] [place] [address] Performed By: #### 5 7021-8 ####[facility] [place] LABCLIA [id number] [facility] [place] [address] [place] MCHC (RBC) [Mass/Vol] 34.4 g/dL Normal 30.5-36.0 [facility] Comment on above: Order Comment: Speci men Type: BLOOD SPECIMENOrdering Facility: [facility] Address: [address] [place] [address] Performed By: #### 5 7021-8 ####[facility] [place] LABCLIA [id number] [facility] [place] [address] [place] MCV (RBC) [Entitic vol] 88.9 fL Normal 80.0-100.0 [facility] Comment on above: Order Comment: Speci men Type: BLOOD SPECIMENOrdering Facility: [facility] Address: [address] [place] [address] Performed By: #### 5 7021-8 ####[facility] [place] LABCLIA [id number] [place] [address] [place] Monocytes (Bld) [#/Vol] 0.58 10*3/uL Normal <0.87 [facility] Comment on above: Order Comment: Speci men Type: BLOOD SPECIMENOrdering Facility: [facility] Address: [address] [place] [address] Performed By: #### 5 7021-8 ####[facility] [place] LABCLIA [id number] [place] [address] [facility] Monocytes/100 WBC (Bld) 10.1 % Normal [facility] Comment on above: Order Comment: Speci men Type: BLOOD SPECIMENOrdering Facility: [facility] Address: [address] [place] [address] Performed By: #### 5 7021-8 ####[facility] [place] LABCLIA [id number] [place] [address] [place] Neutrophils (Bld) [#/Vol] 3.55 10*3/uL Normal 1.45-7.50 [facility] Comment on above: Order Comment: Speci men Type: BLOOD SPECIMENOrdering Facility: [facility] Address: [address] [place] [address] Performed By: #### 5 7021-8 ####[facility] [place] LABCLIA [id number] [place] [address] [place] Neutrophils/100 WBC (Bld) 61.8 % Normal [facility] Comment on above: Order Comment: Speci men Type: BLOOD SPECIMENOrdering Facility: [facility] Address: [address] [place] [address] Performed By: #### 5 7021-8 ####[facility] [place] LABCLIA [id number] [place] [address] [place] Nucleated RBC (Bld) [#/Vol] Normal [facility] Comment on above: Order Comment: Speci men Type: BLOOD SPECIMENOrdering Facility: [facility] Address: [address] [place] [address] Performed By: #### 5 7021-8 ####[facility] [place] LABCLIA [id number] [place] [address] [place] Nucleated RBC/100 WBC (Bld) [Ratio] Normal [facility] Comment on above: Order Comment: Speci men Type: BLOOD SPECIMENOrdering Facility: [facility] Address: [address] [place] [address] Performed By: #### 5 7021-8 ####[facility] [place] LABCLIA [id number] [place] [address] [place] Platelet mean volume (Bld) [Entitic vol] 11.3 fL Normal 9.0-12.7 [facility] Comment on above: Order Comment: Speci men Type: BLOOD SPECIMENOrdering Facility: [facility] Address: [address] [place] [address] Performed By: #### 5 7021-8 ####[facility] [place] LABCLIA [id number] [place] [address] [place] Platelets (Bld) [#/Vol] 218 10*3/uL Normal 150-400 [facility] Comment on above: Order Comment: Speci men Type: BLOOD SPECIMENOrdering Facility: [facility] Address: [address] [place] [address] Performed By: #### 5 7021-8 ####[facility] LABCLIA [id number] [place] [address] [facility] RBC (Bld) [#/Vol] 4.61 10*6/uL Normal 3.90-5.20 [facility] Comment on above: Order Comment: Speci men Type: BLOOD SPECIMENOrdering Facility: [facility] Address: [address] [place] [address] Performed By: #### 5 7021-8 ####[facility] LABCLIA [id number] [place] [address] [facility] WBC (Bld) [#/Vol] 5.74 10*3/uL Normal 3.70-11.00 [facility] Comment on above: Order Comment: Speci men Type: BLOOD SPECIMENOrdering Facility: [facility] Address: [address] [place] [address] Performed By: #### 5 7021-8 ####[facility] LABCLIA [id number] [place] [address] [facility] ECG COMPLETEon 08-15-2024 ECG COMPLETE Ventricular Rate : 5 4 BPM Atrial Rate : 54 BPM P-R Interval : 134 ms QRS Duration : 86 ms Q-T Interval : 422 ms QTC Calculation(Bazett) : 400 ms Calculated P [place] : 27 degrees Calculated R [place] : -16 degrees Calculated T [place] : 26 degrees SINUS BRADYCARDIA OTHERWISE NORMAL ECG WHEN COMPARED WITH ECG OF 31-Aug-2023 09:53, NO SIGNIFICANT CHANGE WAS FOUND Confirmed by MD LULY, JEWELS ([id number]) on 08/16/2024 2:51:29 PM NAME : MEGHAN CULP PID : [id number] : 1970 Gender : Female Race : ORD : [id number] Procedure Date : Aug 15 2024 07:45:43 Edit Date : Aug 16 2024 14:51:32 Diagnosis: SINUS BRADYCARDIA OTHERWISE NORMAL ECG WHEN COMPARED WITH ECG OF 31-Aug-2023 09:53, NO SIGNIFICANT CHANGE WAS FOUND Confirmed by MD MAURICIO VINAYAK ([id number]) on 08/16/2024 2:51:29 PM Test Reason : Chest Pain Location : 191 : [facility] ED Overread By : MD MAURICIO VINAYAK Edited By : MD MAURICIO VINAYAK Referred By : , Acquired by : CATHIE JAIMES [facility] ED NOTEon 08-15-2024 ED NOTE HNO ID: [id number] Author: SHANDRA GIBBONS RN Service: Emergency Medicine Author Type: Registered Nurse Type: ED Notes Filed: 08/15/2024 09:47 Note Text: Pt has no rash or swelling at dispo, no chest pain or sob, pt feeling much better. [facility] ED NOTE HNO ID: [id number] Author: SHANDRA GIBBONS RN Service: Emergency Medicine Author Type: Registered Nurse Type: ED Notes Filed: 08/15/2024 08:56 Note Text: Pt feeling much better, doctor liz at bedside [facility] ED PROV NOTEon 08-15-2024 ED PROV NOTE HNO ID: [id number] Author: KAMRYN ADAMS DO Service: Emergency Medicine Author Type: Physician Type: ED Provider Notes Filed: 08/15/2024 11:49 Note Text: ED Provider Note Patient Name: Meghan Culp : 1970 SERVICE DATE: 08/15/24 History Patient presents with: Facial Swelling Headache Hives Meghan Culp is a 53 year old female who [...] W/PROSTHETIC IMPLANT 2002 Bilateral LAP APPY AT [facility] OTHR SRGY 08/28/2012 LAPAROSCOPIC LYSIS OF INTESTINAL AHDHES. 08/28/2012 and bilat salpingectomy NOVASURE 2009 [facility] hysteroscopy SALPINGECTOMY BTL FAMILY HISTORY Problem Relation [...] (more content not included)... Normal [facility] HIGH SENSITIVITY TROPONIN T (INITIAL)on 08-15-2024 Troponin T.cardiac High sensitivity method [Mass/Vol] <6 Normal <12 [facility] Comment on above: Order Comment: Speci men Type: BLOOD SPECIMENOrdering Facility: [facility] Address: [address] [place], [place] [address] Performed By: #### L [id number] ####[facility] LABCLIA [id number] [place] [address] [place] HIGH SENSITIVITY TROPONIN T (SECOND)on 08-15-2024 Troponin T.cardiac High sensitivity method [Mass/Vol] <6 Normal <12 [facility] Comment on above: Order Comment: Speci men Type: BLOOD SPECIMENOrdering Facility: [facility] Address: [facility] [place] [id number] Performed By: #### L [id number] ####[facility] [id number] [place] [address] [place] XR CHEST 2V FRONTAL/LATon XR [...] tissues: Unremarkable. IMPRESSION: No acute radiographic abnormality. Ehs Teacher: PSCB Transcribe Date/Time: Aug 15 2024 8:10A Dictated by : ANASTACIO FLORES MD This examination was interpreted and the report reviewed and electronically signed by: ANASTACIO FLORES MD on Aug 15 2024 8:11AM EST [id number] Normal [facility] CNOVon 10-26-2023 CNOV Office Visit (OBGMEM ) MEGHAN CULP ([id number]) 1970 F Date Time Provider Department 10/26/23 [...] does protein feels gains does eggs, chicken, bel[place]ian yogurt, Vaginal dryness/painful sex OTC not on HRT Postmenopausal: Yes since age HRT use: No. Last Pap: 01/08/2020 normal HPV: 01/07/2020 negative History of abnormal pap: No Last mammogram: 2023 normal History of abnormal mammogram: No Sexually active: Yes OB History T0 L3 SAB0 IAB0 Ectopic0 Multiple0 Live Births0 Conveyor Feeder History LMP: Ablation Age at Menarche: Age at First : Age at Menopause: Conveyor Feeder History Comments: Sexual Activity: Yes; Male Contraception: [...] external genitalia normal, normal Bartholin's glands, urethra, Albert Lea's glands, no vulvar lesions, no cervical lesions, [...] 30-34.9 Current Assessment AND Plan Refer to [facility] wt mgmt, frustrated as regular workout routine not helping, is in meopause Relevant Orders CONSULT TO [facility] WEIGHT MANAGEMENT PROGRAM Vaginal dryness Overview Start vaginal estrogen 3x wkly 1/2 applicator Menopause Relevant Orders CONSULT TO [facility] WEIGHT MANAGEMENT PROGRAM Other Visit Diagnoses Encounter for gynecological examination (general) (routine) without abnormal findings - Primary Relevant Orders BARBRA SCREENING W BRENDA Encounter for screening mammogram for breast cancer Encounter for screening for malignant neoplasm of colon Relevant Orders CONSULT TO GASTROENTEROLOGY MD Es Ramirez Amy (more content not included)... Normal [facility] CARDIAC PERF STRESS/EXERC ISEon 09-27-2023 MD CARDIAC PERF STRESS/EXERCISE * * *Final Report* * * DATE OF EXAM: Sep 27 2023 9:35AM SATHYA 0004 - NM CARDIAC PERF STRESS/EXERCISE / PROCEDURE REASON: R07.9-Chest pain, unspecified type * * * * Physician Interpretation * * * * Stress Grade School Teacher Report: [facility] Date of service: 09/27/2023 8:27:06 AM Supervising [...] later. See administered radiotracer and doses below. [facility] Date of service: 09/27/2023 8:27:06 AM Ordering [...] Final * * * Stress ECG Report: [facility] Date of service: 09/27/2023 8:27:06 AM Ordering physician: BARBIE PEARL social problems specialist: Norma Alanis Power System Dispatcher: Francesca Arevalo Interpreting physician: Cuauhtemoc Sampson MD [...] 190/78 mmHg. The double product achieved was [id number]. Medications: Last Used LIPITOR PAXIL Resting ECG: Sinus Bradycardia Symptoms at rest: No symptoms Exercise Protocol: Julio C Stress Exercise Table: +-----+ +-------- + +---+---+---+--- -+----+ Stage Speed (MPH) Grade(%) Time (min) HR SYS CLARI RPE METS +-----+ +-------- + +---+---+---+--- -+----+ 1 1.7 10.0 3.0 96 148 74 13.0 4.2 +-----+ +-------- + +---+---+---+--- -+-- (more content not included)... Normal [facility] Heart Perfusion W multipl e states of exerciseon 09-27-2023 * * *Final Report* * * DATE OF EXAM: Sep 27 2023 9:35AM SATHYA 0004 - MD CARDIAC PERF STRESS/EXERCISE / PROCEDURE REASON: R07.9-Chest pain, unspecified type * * * * Physician Interpretation * * * * Stress Grade School Teacher Report: [facility] Date of service: 09/27/2023 8:27:06 AM Supervising [...] later. See administered radiotracer and doses below. [facility] Date of service: 09/27/2023 8:27:06 AM Ordering [...] Final * * * Stress ECG Report: [facility] Date of service: 09/27/2023 8:27:06 AM Ordering physician: BARBIE PEARL social problems specialist: Norma Alanis Power System Dispatcher: Francesca Arevalo Interpreting physician: Cuauhtemoc Sampson MD [...] 190/78 mmHg. The double product achieved was [id number]. Medications: Last Used LIPITOR PAXIL Resting ECG: Sinus Bradycardia Symptoms at rest: No symptoms Exercise Protocol: Julio C (more content not included)... [facility] Provider, Bushra Hernandez - 09/27/2023 * * *Final Report* * * DATE OF EXAM: Sep 27 2023 9:35AM SATHYA 0004 - NM CARDIAC PERF STRESS/EXERCISE / PROCEDURE REASON: R07.9-Chest pain, unspecified type * * * * Physician Interpretation * * * * Stress Grade School Teacher Report: [facility] Date of service: 09/27/2023 8:27:06 AM Supervising [...] later. See administered radiotracer and doses below. [facility] Date of service: 09/27/2023 8:27:06 AM Ordering [...] Final * * * Stress ECG Report: [facility] Date of service: 09/27/2023 8:27:06 AM Ordering physician: BARBIE PEARL social problems specialist: Norma Alanis Power System Dispatcher: Francesca Arevalo Interpreting physician: Cuauhtemoc Sampson MD [...] 190/78 mmHg. The double product achieved was [id number]. Medications: Last Used LIPITOR PAXIL Resting ECG: Sinus Bradycardia Symptoms at rest: No symptoms Exercise Protocol: Julio C Stress Exercise Table: +-----+ +-------- + +---+---+---+--- -+----+ Stage Speed (MPH) Grade(%) Time (min) HR SYS CLARI RPE METS +---- (more content not included)... [facility] Radiology Study observation (narrative) [facility] NM Heart Perfusion W multipl e states of exerciseOrdered By: Ccf Provider on 09-27-2023 [facility] CNCOon 09-26-2023 CNCO HNO ID: [id number] Author: COORDINATOR, MAMMOGRAPHY, ? Service: ? Author Type: Physician Type: Letter Filed: 09/26/2023 14:43 Note Text: September 27, 2023 PID: [id number] Meghan Culp [address] [place] [address] Dear Ms. Culp, We are pleased to [...] report will be kept on file at [facility] as part of your permanent medical record and are available for your continuing care. Thank you for allowing us to help in meeting your health care needs. Sincerely, Dr. Hanson Interpreting Radiologist [facility] (Normal over 40) Normal [facility] CNPNon 09-26-2023 CNPN Telephone (CDLBME) MEGHAN CULP ([id number]) 1970 F Date Time Provider Department 09/26/23 [...] Fully Assessed Reason for Visit: Reminder Call [5108] Prescriptions as of 09/26/2023 - atorvastatin (LIPITOR) [...] Status:Closed by FRANCESCA AREVALO on 09/26/23 Normal [facility] SCREENING W TOMOon 09-24 BARBRA SCREENING W BRENDA * * *Final Report* * * DATE OF EXAM: Sep 25 2023 2:56PM ANTHONY 0582 - [facility] SCREENING W BRENDA / PROCEDURE REASON: Z.31-Encounter for screening mammogram for malignant neoplasm of breast * * * * Physician Interpretation * * * * #[id number] - [facility] SCREENING W BRENDA BILATERAL DIGITAL SCREENING MAMMOGRAM [...] mammogram, 01/01/2020 mammogram, and 12/19/2018 mammogram - [facility]. The breasts are heterogeneously dense, which may obscure small masses. Postsurgical changes from interval bilateral implant removal and mastopexy. No significant masses, calcifications, or other findings are seen in either breast. There has been no significant interval change. IMPRESSION: BENIGN FINDING There is no mammographic evidence of malignancy. A 1 year screening mammogram is recommended. Imtiaz Hanson M.D., lm/hai:09/26/2023 14:43:26 Vp Revenue Cycle(s): RIK Ochoa)(M), [facility] letter sent: Normal over 40 Mammogram BI-RADS: [...] Health, Family Medicine, and Medical/Surgical Oncology, the [facility] has carefully reviewed the data and reached [...] their providers when to stop screening mammograms. Ehs Teacher: Hai Transcribe Date/Time: Sep 25 2023 2:40P Dictated by : IMTIAZ HANSON MD This examination was interpreted and the report reviewed and electronically signed by: IMTIAZ HANSON MD on Sep 26 2023 2:43PM EST [id number] Normal [facility] ECHOon 09-19-2023 CONCLUSIONS: - Technically difficult exam [...] * * * Final * * * [facility] Echocardiography Report: Transthoracic Echo [facility] Date of service: 09/19/2023 7:05:05 AM Ordering physician: BARBIE PEARL Indication: Chest Pain Technologist: Deisy Park [facility] Interpreting physician: Cuauhtemoc Sampson MD PATIENT: Name: [...] is normal. There is no pericardial effusion. [facility] Echocardiography Echocardiography Rep ort: Transthoracic Echo [facility] Date of service: 09/19/2023 7:05:05 AM Ordering physician: BARBIE PEARL Indication: Chest Pain Technologist: Deisy Park [facility] Interpreting physician: Cuauhtemoc Sampson MD PATIENT: Name: [...] * * Final * * * [facility] : [id number] [employer] [facility] 09-13-2023 [facility] Office Visit (CARDMM ) MEGHAN CULP ([id number]) 1970 F Date Time Provider Department 09/13/23 10:40 AM BARBIE PEALR During your visit today, we recorded the following information about you: Pulse Blood pressure Weight Height 65/minute 104/68 85.7 kg 1.651 m Barbie Pearl MD 09/13/2023 3:58 PM Signed [facility] [place] SECTION OF REGIONAL CARDIOLOGY OUTPATIENT VISIT DATE 09/13/2023 OUTPATIENT VISIT TYPE NEW PRIMARY CARE PHYSICIAN: Lashawn Bryant ([facility]) [address] [address] Patient is being seen at the request [...] leg swelling, lightheadedness, syncope. She engages in [employer] and exercises 3-4x week. She runs [...] AHDHES. 08/28/2012 and bilat salpingectomy FABRICIO 2009 [facility] hysteroscopy SALPINGECTOMY BTL Social History Tobacco Use [...] ECGS AVAILABLE Confirmed by MD MATHIAS VINAY ([id number]) on 08/31/2023 2:59:43 PM ASSESSMENT/PLAN: 1. Other chest pain - ICD9: 786.59, ICD10: R07.89 - Arrange for echocardiogram and nuclear stress test. Barbie Pearl MD, [facility] Non invasive and Sports [employer] Compliance Manager Allergies As of Date: 09/13/2023 Noted Allergy [...] Visit Diagnosis:Chest pain, unspecified type [R07.9] Order(s):ECHO [[id number]] Order #: [id number]: 1 FUTURE NM CARDIAC PERF STRESS/EXERCISE [1 (more content not included)... Normal [facility] 08-31-2023 ALLIED [facility]ALTH HNO ID: [id number] Author: SAMUEL RODRIGUEZ RT(R) Service: Radiology Author Type: High School History Teacher Type: Allied Health Filed: 08/31/2023 11:43 Note [...] PATIENT PRESENTS WITH AN IMPLANTABLE OR ATTACHED RETAIL SALES CLERK: No RADIOLOGY DEPARTMENT: General X-ray: Exam(s) Completed: Chest X-Ray PERIPHERAL IV DATA: Not applicable SIGNED BY: RT Eugene(R) August 31, 2023 11:43 AM Normal [facility] CBC W Auto Differential pane l (Bld)on 08-31-2023 Basophils (Bld) [#/Vol] 0.03 10*3/uL Normal <0.11 [facility] Comment on above: Order Comment: Speci men Type: BLOOD SPECIMENOrdering Facility: [facility] Address: [address] [place] [address] Performed By: #### 5 7021-8 ####[facility] [place] LABCLIA [id number] [place] [address] [place] Basophils/100 WBC (Bld) 0.7 % Normal [facility] Comment on above: Order Comment: Speci men Type: BLOOD SPECIMENOrdering Facility: [facility] Address: [address] [place] [address] Performed By: #### 5 7021-8 ####[facility] [place] LABCLIA [id number] [place] [address] [place] Differential cell count method Nom (Bld) Auto Normal [facility] Comment on above: Order Comment: Speci men Type: BLOOD SPECIMENOrdering Facility: [facility] Address: [address] [place] [address] Performed By: #### 5 7021-8 ####[facility] [place] LABCLIA [id number] [place] [address] [place] Eosinophils (Bld) [#/Vol] 0.06 10*3/uL Normal <0.46 [facility] Comment on above: Order Comment: Speci men Type: BLOOD SPECIMENOrdering Facility: [facility] Address: [address] [place] [address] Performed By: #### 5 7021-8 ####[facility] [place] LABCLIA [id number] [place] [address] [place] Eosinophils/100 WBC (Bld) 1.4 % Normal [facility] Comment on above: Order Comment: Speci men Type: BLOOD SPECIMENOrdering Facility: [facility] Address: [address] [place] [address] Performed By: #### 5 7021-8 ####[facility] [place] LABCLIA [id number] [place] [facility] [place] [address] [place] Erythrocyte distribution width (RBC) [Ratio] 12.7 % Normal 11.5-15.0 [facility] Comment on above: Order Comment: Speci men Type: BLOOD SPECIMENOrdering Facility: [facility] Address: [address] [place] [address] Performed By: #### 5 7021-8 ####[facility] [place] LABCLIA [id number] [place] [facility] [place] [address] [place] Hematocrit (Bld) [Volume fraction] 40.4 % Normal 36.0-46.0 [facility] Comment on above: Order Comment: Speci men Type: BLOOD SPECIMENOrdering Facility: [facility] Address: [address] [place] [address] Performed By: #### 5 7021-8 ####[facility] [place] LABCLIA [id number] [facility] [place] [address] [place] Hemoglobin (Bld) [Mass/Vol] 13.9 g/dL Normal 11.5-15.5 [facility] Comment on above: Order Comment: Speci men Type: BLOOD SPECIMENOrdering Facility: [facility] Address: [address] [place] [address] Performed By: #### 5 7021-8 ####[facility] [place] LABCLIA [id number] [place] [address] [place] Immature granulocytes (Bld) [#/Vol] 10*3/uL Normal <0.10 [facility] Comment on above: Order Comment: Speci men Type: BLOOD SPECIMENOrdering Facility: [facility] Address: [address] [place] [address] Performed By: #### 5 7021-8 ####[facility] [place] LABCLIA [id number] [place] [address] [place] [facility] Immature granulocytes/100 WBC (Bld) 0.2 % Normal [facility] Comment on above: Order Comment: Speci men Type: BLOOD SPECIMENOrdering Facility: [facility] Address: [address] [place] [address] Performed By: #### 5 7021-8 ####[facility] [place] LABCLIA [id number] [place] [address] [place] [facility] Lymphocytes (Bld) [#/Vol] 1.79 10*3/uL Normal 1.00-4.00 [facility] Comment on above: Order Comment: Speci men Type: BLOOD SPECIMENOrdering Facility: [facility] Address: [address] [place] [address] Performed By: #### 5 7021-8 ####[facility] [place] LABCLIA [id number] [place] [address] [facility] Lymphocytes/100 WBC (Bld) 42.5 % Normal [facility] Comment on above: Order Comment: Speci men Type: BLOOD SPECIMENOrdering Facility: [facility] Address: [address] [place] [address] Performed By: #### 5 7021-8 ####[facility] [place] LABCLIA [id number] [place] [address] [place] MCH (RBC) [Entitic mass] 31.1 pg Normal 26.0-34.0 [facility] Comment on above: Order Comment: Speci men Type: BLOOD SPECIMENOrdering Facility: [facility] Address: [address] [place] [address] Performed By: #### 5 7021-8 ####[facility] [place] LABCLIA [id number] [place] [address] [facility] [place] MCHC (RBC) [Mass/Vol] 34.4 g/dL Normal 30.5-36.0 [facility] Comment on above: Order Comment: Speci men Type: BLOOD SPECIMENOrdering Facility: [facility] Address: [address] [place] [address] Performed By: #### 5 7021-8 ####[facility] [place] LABCLIA [id number] [place] [address] [place] MCV (RBC) [Entitic vol] 90.4 fL Normal 80.0-100.0 [facility] Comment on above: Order Comment: Speci men Type: BLOOD SPECIMENOrdering Facility: [facility] Address: [address] [place] [address] Performed By: #### 5 7021-8 ####[facility] [place] LABCLIA [id number] [place] [address] [place] Monocytes (Bld) [#/Vol] 0.35 10*3/uL Normal <0.87 [facility] Comment on above: Order Comment: Speci men Type: BLOOD SPECIMENOrdering Facility: [facility] Address: [address] [place] [address] Performed By: #### 5 7021-8 ####[facility] [place] LABCLIA [id number] [place], [place] [address] [place] [address] Monocytes/100 WBC (Bld) 8.3 % Normal [facility] Comment on above: Order Comment: Speci men Type: BLOOD SPECIMENOrdering Facility: [facility] Address: [address] [place] [address] Performed By: #### 5 7021-8 ####[facility] [place] LABCLIA [id number] [place] [address] [place] Neutrophils (Bld) [#/Vol] 1.97 10*3/uL Normal 1.45-7.50 [facility] Comment on above: Order Comment: Speci men Type: BLOOD SPECIMENOrdering Facility: [facility] Address: [address] [place] [address] Performed By: #### 5 7021-8 ####[facility] [place] LABCLIA [id number] [facility] [place] [address] [place] Neutrophils/100 WBC (Bld) 46.9 % Normal [facility] Comment on above: Order Comment: Speci men Type: BLOOD SPECIMENOrdering Facility: [facility] Address: [address] [place] [address] Performed By: #### 5 7021-8 ####[facility] [place] LABCLIA [id number] [place] [facility] [place] [address] [place] Nucleated RBC (Bld) [#/Vol] Normal [facility] Comment on above: Order Comment: Speci men Type: BLOOD SPECIMENOrdering Facility: [facility] Address: [address] [place] [address] Performed By: #### 5 7021-8 ####[facility] [place] LABCLIA [id number] [facility] [place] [address] [place] Nucleated RBC/100 WBC (Bld) [Ratio] Normal [facility] Comment on above: Order Comment: Speci men Type: BLOOD SPECIMENOrdering Facility: [facility] Address: [address] [place] [address] Performed By: #### 5 7021-8 ####[facility] [place] LABCLIA [id number] [facility] [place] [address] [place] Platelet mean volume (Bld) [Entitic vol] 11.2 fL Normal 9.0-12.7 [facility] Comment on above: Order Comment: Speci men Type: BLOOD SPECIMENOrdering Facility: [facility] Address: [address] [place] [address] Performed By: #### 5 7021-8 ####[facility] [place] LABCLIA [id number] [facility] [place] [address] [place] Platelets (Bld) [#/Vol] 215 10*3/uL Normal 150-400 [facility] Comment on above: Order Comment: Speci men Type: BLOOD SPECIMENOrdering Facility: [facility] Address: [address] [place] [address] Performed By: #### 5 7021-8 ####[facility] LABCLIA [id number] [place] [address] [facility] RBC (Bld) [#/Vol] 4.47 10*6/uL Normal 3.90-5.20 [facility] Comment on above: Order Comment: Speci men Type: BLOOD SPECIMENOrdering Facility: [facility] Address: [address] [place] [address] Performed By: #### 5 7021-8 ####[facility] LABCLIA [id number] [place] [address] [facility] WBC (Bld) [#/Vol] 4.21 10*3/uL Normal 3.70-11.00 [facility] Comment on above: Order Comment: Speci men Type: BLOOD SPECIMENOrdering Facility: [facility] Address: [address] [place] [address] Performed By: #### 5 7021-8 ####[facility] LABCLIA [id number] [place] [address] [facility] Comprehensive metabolic 2000 panelon 08-31-2023 Albumin [Mass/Vol] 4.4 g/dL Normal 3.9-4.9 [facility] Comment on above: Order Comment: Speci men Type: BLOOD SPECIMENOrdering Facility: [facility] Address: [address] [place] [address] Performed By: #### 2 4323-8, 3040-3 ####[facility] LABCLIA [id number] [place] [address] [facility] ALP [Catalytic activity/Vol] 64 U/L Normal 34-123 [facility] Comment on above: Order Comment: Speci men Type: BLOOD SPECIMENOrdering Facility: [facility] Address: [address] [place] [address] Performed By: #### 2 4323-8, 3040-3 ####[facility] [place] LABCLIA [id number] [place] [address] [place] ALT With P-5'-P [Catalytic activity/Vol] 18 U/L Normal 7-38 [facility] Comment on above: Order Comment: Speci men Type: BLOOD SPECIMENOrdering Facility: [facility] Address: [address] [place] [address] Performed By: #### 2 4323-8, 3040-3 ####[facility] [place] LABCLIA [id number] [place] [address] [place] Anion gap [Moles/Vol] 11 mmol/L Normal 8-15 [facility] Comment on above: Order Comment: Speci men Type: BLOOD SPECIMENOrdering Facility: [facility] Address: [address] [place] [address] Performed By: #### 2 4323-8, 3040-3 ####[facility] [place] LABCLIA [id number] [place] [address] [place] AST With P-5'-P [Catalytic activity/Vol] 19 U/L Normal 13-35 [facility] Comment on above: Order Comment: Speci men Type: BLOOD SPECIMENOrdering Facility: [facility] Address: [address] [place], [place] [address] Performed By: #### 2 4323-8, 3040-3 ####[facility] [place] LABCLIA [id number] [place] [address] [place] Bilirubin [Mass/Vol] 0.5 mg/dL Normal 0.2-1.3 [facility] Comment on above: Order Comment: Speci men Type: BLOOD SPECIMENOrdering Facility: [facility] Address: [address] [place] [address] Performed By: #### 2 4323-8, 3040-3 ####[facility] [place] LABCLIA [id number] [place] [address] [place] Calcium [Mass/Vol] 9.5 mg/dL Normal 8.5-10.2 [facility] Comment on above: Order Comment: Speci men Type: BLOOD SPECIMENOrdering Facility: [facility] Address: [address] [place] [address] Performed By: #### 2 4323-8, 3040-3 ####[facility] [place] LABCLIA [id number] [facility] [place] [address] [place] Chloride [Moles/Vol] 104 mmol/L Normal 98-107 [facility] Comment on above: Order Comment: Speci men Type: BLOOD SPECIMENOrdering Facility: [facility] Address: [address] [place] [address] Performed By: #### 2 4323-8, 3040-3 ####[facility] [place] LABCLIA [id number] [place] [address] [place] CO2 [Moles/Vol] 25 mmol/L Normal 22-30 [facility] Comment on above: Order Comment: Speci men Type: BLOOD SPECIMENOrdering Facility: [facility] Address: [address] [place] [address] Performed By: #### 2 4323-8, 3040-3 ####[facility] [place] LABCLIA [id number] [place] [address] [place] Creatinine [Mass/Vol] 0.57 mg/dL Low 0.58-0.96 [facility] Comment on above: Order Comment: Speci men Type: BLOOD SPECIMENOrdering Facility: [facility] Address: [address] [place] [address] Performed By: #### 2 4323-8, 3040-3 ####[facility] [place] LABCLIA [id number] [place] [address] [facility] Creatinine and Glomerular filtration rate.predicted panel (S/P/Bld) 108 mL/min/1.73m??? Normal >=60 [facility] Comment on above: Order Comment: Speci men Type: BLOOD SPECIMENOrdering Facility: [facility] Address: [address] [place] [address] Result Comment: Ester mated Glomerular Filtration Rate [...] GFR. Performed By: #### 2 4323-8, 3039-3 ####[facility] LABCLIA [id number] [place] [address] [place] Glucose [Mass/Vol] 95 mg/dL Normal 74-99 [facility] Comment on above: Order Comment: Cameron matamoros Type: BLOOD SPECIMENOrdering Facility: [facility] Address: [address] [place] [address] Result Comment: The [place] Diabetes Association (ADA) provides guidance for cutoff [...] Standards of Medical Care in Diabetes 2016, [place] [employer]. Diabetes Care. 2016.39(Suppl 1). Performed By: #### 2 4323-8, 3039-3 ####[facility] LABCLIA [id number] [place] [address] [place] Potassium [Moles/Vol] 4.0 mmol/L Normal 3.7-5.1 [facility] Comment on above: Order Comment: Cameron matamoros Type: BLOOD SPECIMENOrdering Facility: [facility] Address: [address] [place] [address] Performed By: #### 2 4323-8, 3039-3 ####[facility] LABCLIA [id number] [place] [address] [place] Protein [Mass/Vol] 7.1 g/dL Normal 6.3-8.0 [facility] Comment on above: Order Comment: Speci men Type: BLOOD SPECIMENOrdering Facility: [facility] Address: [address] [place] [address] Performed By: #### 2 4323-8, 3040-3 ####[facility] [place] LABCLIA [id number] [place] [address] [facility] Sodium [Moles/Vol] 140 mmol/L Normal 136-144 [facility] Comment on above: Order Comment: Speci men Type: BLOOD SPECIMENOrdering Facility: [facility] Address: [address] [place] [address] Performed By: #### 2 4323-8, 3040-3 ####[facility] [place] LABCLIA [id number] [place] [address] [facility] Urea nitrogen [Mass/Vol] 11 mg/dL Normal 7-21 [facility] Comment on above: Order Comment: Speci men Type: BLOOD SPECIMENOrdering Facility: [facility] Address: [address] [place] [address] Performed By: #### 2 4323-8, 3040-3 ####[facility] [place] LABCLIA [id number] [place] [address] [facility] D dimer FEU PPP-mCncon 08-30 Fibrin D-dimer FEU (PPP) [Mass/Vol] 290 ng/mL FEU Normal <500 [facility] Comment on above: Order Comment: Speci men Type: BLOOD SPECIMEN [facility] Address: [address] [place] [address] Performed By: #### 4 8065-7 #### [facility] [place] [facility] CLIA [id number] [facility] [place] [address] [facility] ED NOTEon 08-31-2023 ED NOTE HNO ID: [id number] Author: HEATHER, BERNARDA, RN Service: Emergency Medicine [...] 2023 TIME: 9:57 PM Normal [facility] ED NOTE HNO ID: [id number] Author: VICKIE SHELLEY RN Service: Emergency Medicine [...] to lobby, no distress. Normal [facility] ED PROV NOTEon 08-31-2023 ED PROV NOTE HNO ID: [id number] Author: KING POTTS MD Service: Emergency Medicine [...] 49-51, measured several times a week at [employer]. 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 08/28/2012 and bilat salpingectomy 2009 [facility] hysteroscopy SALPINGECTOMY BTL FAMILY HISTORY Problem Relation [...] (more content not included)... Normal [facility] EKGon 08-31-2023 Electrocardiogram Ventricular Rate : 4 8 BPM Atrial Rate : 48 BPM P-R Interval : 146 ms QRS Duration : 84 ms Q-T Interval : 454 ms QTC Calculation(Bazett) : 405 ms Calculated P [place] : 31 degrees Calculated R [place] : -30 degrees Calculated T [place] : 27 degrees SINUS BRADYCARDIA LEFT AXIS DEVIATION ABNORMAL ECG NO PREVIOUS ECGS AVAILABLE Confirmed by MD MATHIAS VINAY ([id number]) on 08/31/2023 2:59:43 PM NAME : MEGHAN MORENO PID : [id number] : 1970 Gender : Female Race : ORD : Procedure Date : Aug 31 2023 09:53:24 Edit Date : Aug 31 2023 14:59:44 Diagnosis: SINUS BRADYCARDIA LEFT AXIS DEVIATION ABNORMAL ECG NO PREVIOUS ECGS AVAILABLE Confirmed by MD MATHIAS VINAY ([id number]) on 08/31/2023 2:59:43 PM Test Reason : Location : 191 : [facility] ED Overread By : MD MATHIAS VINAY Edited By : MD MATHIAS VINAY Referred By : , Acquired by : PRIYANKA BUCKNER Normal [facility] Fibrin D-dimer FEU (PPP) [Ma ss/Vol]on 08-31-2023 D DIMER AGE-RELATED CUTOFF 540 ng/mL FEU Normal [facility] Comment on above: Order Comment: Cameron matamoros Type: BLOOD SPECIMEN Ordering Facility: [facility] Address: [address] [place] [address] Performed By: #### 4 8065-7 #### [facility] CLIA [id number] [address] [place] [address] [place] HIGH SENSITIVITY TROPONIN T (INITIAL)on 08-31-2023 Troponin T.cardiac High sensitivity method [Mass/Vol] 8 ng/L Normal <12 [facility] Comment on above: Order Comment: Cameron matamoros Type: BLOOD SPECIMENOrdering Facility: [facility] Address: [address] [place] [address] Result Comment: When assessing risk for acute [...] 30 day MACE. Performed By: #### L [id number] ####[employer] [facility] Med[facility] LABCLIA [id number] [place] [address] [place] HIGH SENSITIVITY TROPONIN T (SECOND)on 08-31-2023 Troponin T.cardiac High sensitivity method [Mass/Vol] <6 Normal <12 [facility] Comment on above: Order Comment: Cameron matamoros Type: BLOOD SPECIMENOrdering Facility: [facility] Address: [address], [place] [address] Result Comment: When assessing risk for acute [...] 30 day MACE. Performed By: #### L [id number] ####[facility] LABCLIA [id number] [place] [address] [facility] Lipase SerPl-cCncon 08-31-19 24 Lipase [Catalytic activity/Vol] 17 U/L Normal 16-61 [facility] Comment on above: Order Comment: Speci men Type: BLOOD SPECIMENOrdering Facility: [facility] Address: [address] [place] [address] Performed By: #### 2 4323-8, 3040-3 ####[facility] LABCLIA [id number] [place] [address] [facility] XR CHEST 2V FRONTAL/LATon XR [...] tissues: Unremarkable. IMPRESSION: No acute radiographic abnormality. Ehs Teacher: PSCB Transcribe Date/Time: Aug 31 2023 12:02P Dictated by : JAMAAL AVILA MD This examination was interpreted and the report reviewed and electronically signed by: JAMAAL AVILA MD on Aug 31 2023 12:03PM EST [id number] Normal [facility] CNPNon 08-22-2023 [facility] Telephone (OBGMEM) MEGHAN MORENO ([id number]) 1970 F Date Time Provider Department 08/22/23 [...] malignant neoplasm of breast [Z12.31] Order(s):BARBRA GUTIERREZ [[id number]] Order #: [id number] FUTURE Prescriptions as of 08/22/2023 - valACYclovir [...] Status:Closed by LICO CAMPOS on 08/22/23 Normal [facility] Anticardiolipin IgA,G,Mon ANTICARDIO IgA < 9 Normal 0-11 [facility] Comment on above: Result Comment: Nega tive: <12 Indeterminate: 12 - 20 Low-Med Positive: >20 - 80 High Positive: >80 Performed By: #### L 4500.5000, L300.3900, L500.4050, L100.0100, L501.9520, L500.4100, L501.6750, L3100.8408 #### [facility] [address] [place], [place], [id number] Anticardio.IgG < 9 Normal 0-14 [facility] Comment on above: Result Comment: Nega tive: <15 Indeterminate: 15 - 20 Low-Med Positive: >20 - 80 High Positive: >80 Performed By: #### L 4500.5000, L300.3900, L500.4050, L100.0100, L501.9520, L500.4100, L501.6750, L3100.8408 #### [facility] [address] [place], [address] Anticardio.IgM < 9 Normal 0-12 [facility] Comment on above: Result Comment: Nega tive: <13 Indeterminate: 13 - 20 Low-Med Positive: >20 - 80 High Positive: >80 Performed By: #### L 4500.5000, L300.3900, L500.4050, L100.0100, L501.9520, L500.4100, L501.6750, L3100.8408 #### [facility] [address] [place], [address] Fact V Leiden Mutationon FACTOR V LEIDEN Comment Abnormal . [facility] Comment on above: Result Comment: Resu lt: c.1601G>A (p.[id number]) - Detected, Heterozygous This result is associated with a 6- to 8-fold increased risk for venous thromboembolism. See Additional Clinical Information and Comments. Additional Clinical Information: Venous thromboembolism is a multifactorial disease influenced by genetic, environmental, and circumstantial risk factors. The c.1601G>A (p. [id number]) variant in the F5 gene, commonly referred [...] c.*97G>A variant and Factor V Leiden (PMID: 90922856). Additional risk factors include but are not [...] health care providers to discuss results at [phone] ([id number]). Test Details: Variant Analyzed: c.1601G>A (p. Ris934Gpk), referred to as Factor V Leiden Methods/Limitations: [...] developed and its performance characteristics determined by [employer]. It has not been cleared or approved by the Food and Drug Administration. References: Devon S, Sun AK, Praneeth R, Radha WW, Ja BLANCO; A[employer] Professional Practice and Guidelines Committee. Addendum: [place] [employer] consensus statement on factor V Leiden mutation testing. Maryjo Med. 2020May 29. doi: 10.1038/j96757-322-98331-w. PMID: 22618990. Dwight WANG. Factor V Leiden Thrombophilia. 1998August 07 (Updated 2017Mar 30). In: Adalid MP, Marcellus HH, Lyle RA, et al., editors. Caden(R) (Internet). [place]): [facility]; 2170-2108. Available from: https://www.ncbi.nlm.nih.gov/books/OWS1822/ Rich S, Sun AK, Ronnell X, Ricky B, Sybil EB, Sienna P, Kristin CS; [employer] Laboratory Narcotics Detective Committee. Venous thromboembolism laboratory testing (factor V Leiden and factor II c.*97G>A), 2018 update: a technical standard of the [place] [employer] and Genomics (ACMG). Maryjo Med. 2018 Feb;20(12):2172-4835. doi: 10.1038/j96362-304-6353-h. Epub 2017Dec 29. PMID: 44703586. Liliam Starr, PhD, [facility] Nathanael Liu, PhD Jaspreet Webb, PhD, FAC Griffin Schilling, PhD, FAC Fly Alicea, PhD, FACMG Margie Nicolas, PhD, FAC Cassi Vick, PhD, FAC Juana Christiansen, PhD, [facility] Performed at: - [facility] [id number] [employer] Order Filler: Jamari Medina PhD, Phone: [phone] Performed at: - [facility] [address] [facility], [place], [place] [id number] [employer] Order Filler: Cam Esteban [facility], Phone: [phone] Performed By: #### L 4500.5000, L300.3900, L500.4050, L100.0100, L501.9520, L500.4100, L501.6750, L3100.8408 #### [facility] [place], [address] Absolute lymphocyte countOrd ered By: Lashawn Bryant on 05-24-2022 Lymphocytes Auto (Unsp spec) [#/Vol] 2.05 10*3/uL 0.83-4.51 [facility] Basophil percentageOrdered B y: Lashawn Bryant on 05-24-2022 Basophils/100 WBC (Bld) 0.6 % 0-1 [facility] Bilirubin [Mass/Vol] 0.60 mg/dL 0.20-1.00 [facility] Comment on above: For patients on eltr ombopag therapy, use of Dimension [place] TBIL is not recommended. Chloride [Moles/Vol] 105 mmol/L 98-107 [facility] Cholesterol [Mass/Vol] 243 mg/dL <200 [facility] Comment on above: <200 mg/dL Desirable 200-240 mg/dL Borderline >240 mg/dL High Risk Eosinophils/100 WBC (Bld) 1.3 % 0-5 [facility] Glucose [Mass/Vol] 89 mg/dL 74-106 [facility] Neutrophils (Bld) [#/Vol] 2.8 10*3/uL 2.0-7.7 [facility] Neutrophils/100 WBC (Bld) 51.9 % 47-70 [facility] Potassium [Moles/Vol] 3.6 mmol/L 3.5-5.1 [facility] Protein [Mass/Vol] 7.3 g/dL 6.4-8.2 [facility] Sodium [Moles/Vol] 140 mmol/L 136-145 [facility] Triglyceride [Mass/Vol] 135 mg/dL <199 [facility] Comment on above: The drugs N-Acetylcy steine and Metamizole may falsely depress this assay.Serum Triglycerides Reference Interval Normal <150 mg/dL Borderline high 150 - 199 mg/dL High 200 - 499 mg/dL Very High > or = 500 mg/dL WBC (Bld) [#/Vol] 5.4 10*3/uL 4.4-11.0 [facility] Blood erythrocytes count (nu mber/volume)Ordered By: Lashawn Bryant on 02-28-2023 RBC (Bld) [#/Vol] 4.47 10*6/uL 4.2-5.4 [facility] Blood hemoglobin measurement (mass/volume)Ordered By: Lashawn Bryant on 05-24-2022 Hemoglobin (Bld) [Mass/Vol] 13.7 g/dL 12.0-15.0 [facility] Blood lymphocytes/100 leukoc ytesOrdered By: Lashawn Bryant on 05-24-2022 Lymphocytes/100 WBC (Bld) 38.2 % 19-41 [facility] Blood monocytes/100 leukocyt esOrdered By: Lashawn Bryant on 05-24-2022 Monocytes/100 WBC (Bld) 7.8 % 0-10 [facility] Blood platelet mean volumeOr dered By: Lashawn Bryant on 05-24-2022 Platelet mean volume (Bld) [Entitic vol] 11.5 fL 6.2-12.0 [facility] CBC W/Diff, Automatedon 04-28 Absolute Lymph 2.05 X10 3/uL Normal 0.83-4.51 [facility] Comment on above: Performed By: #### L 4500.5000, L300.3900, L500.4050, L100.0100, L501.9520, L500.4100, L501.6750, L3100.8408 #### [facility] [address] [place], [address] Absolute Neut 2.8 X10 3/uL Normal 2.0-7.7 [facility] Comment on above: Performed By: #### L 4500.5000, L300.3900, L500.4050, L100.0100, L501.9520, L500.4100, L501.6750, L3100.8408 #### [facility] [address] [place], [address] Basophils/100 WBC (Bld) 0.6 % Normal 0-1 [facility] Comment on above: Performed By: #### L 4500.5000, L300.3900, L500.4050, L100.0100, L501.9520, L500.4100, L501.6750, L3100.8408 #### [facility] [address] [place], [address] Eosinophils/100 WBC (Bld) 1.3 % Normal 0-5 [facility] Comment on above: Performed By: #### L 4500.5000, L300.3900, L500.4050, L100.0100, L501.9520, L500.4100, L501.6750, L3100.8408 #### [facility] [address] [place], [address] Erythrocyte distribution width (RBC) [Ratio] 12.1 % Normal 11.6-14.6 [facility] Comment on above: Performed By: #### L 4500.5000, L300.3900, L500.4050, L100.0100, L501.9520, L500.4100, L501.6750, L3100.8408 #### [facility] [address] [place], [address] Hematocrit (Bld) [Volume fraction] 39.7 % Normal 37-47 [facility] Comment on above: Performed By: #### L 4500.5000, L300.3900, L500.4050, L100.0100, L501.9520, L500.4100, L501.6750, L3100.8408 #### [facility] [address] [place], [address] Hemoglobin (Bld) [Mass/Vol] 13.7 g/dL Normal 12.0-15.0 [facility] Comment on above: Performed By: #### L 4500.5000, L300.3900, L500.4050, L100.0100, L501.9520, L500.4100, L501.6750, L3100.8408 #### [facility] [address] [place], [address] IG% 0.200 Normal 0.0-0.9 [facility] Comment on above: Result Comment: IG% - Immature Granulocytes (promyelocytes, myelocytes and metamyelocytes) > 1% indicates that a LEFT SHIFT is Present. Performed By: #### L 4500.5000, L300.3900, L500.4050, L100.0100, L501.9520, L500.4100, L501.6750, L3100.8408 #### [facility] [address] [place], [address] Lymphocytes/100 WBC (Bld) 38.2 % Normal 19-41 [facility] Comment on above: Performed By: #### L 4500.5000, L300.3900, L500.4050, L100.0100, L501.9520, L500.4100, L501.6750, L3100.8408 #### [facility] [address] [place], [address] MCH (RBC) [Entitic mass] 30.6 pg Normal 27.0-32.0 [facility] Comment on above: Performed By: #### L 4500.5000, L300.3900, L500.4050, L100.0100, L501.9520, L500.4100, L501.6750, L3100.8408 #### [facility] [address] [place], [address] MCHC (RBC) [Mass/Vol] 34.5 g/dL Normal 32-36 [facility] Comment on above: Performed By: #### L 4500.5000, L300.3900, L500.4050, L100.0100, L501.9520, L500.4100, L501.6750, L3100.8408 #### [facility] [address] [place], [address] MCV (RBC) [Entitic vol] 88.8 fL Normal 81-99 [facility] Comment on above: Performed By: #### L 4500.5000, L300.3900, L500.4050, L100.0100, L501.9520, L500.4100, L501.6750, L3100.8408 #### [facility] [address] [place], [address] Monocytes/100 WBC (Bld) 7.8 % Normal 0-10 [facility] Comment on above: Performed By: #### L 4500.5000, L300.3900, L500.4050, L100.0100, L501.9520, L500.4100, L501.6750, L3100.8408 #### [facility] [address] [place], [address] Neutrophils/100 WBC (Bld) 51.9 % Normal 47-70 [facility] Comment on above: Performed By: #### L 4500.5000, L300.3900, L500.4050, L100.0100, L501.9520, L500.4100, L501.6750, L3100.8408 #### [facility] [address] [place], [address] Nucleated RBC (Bld) [#/Vol] 0 10*3/uL Normal 0-5 [facility] Comment on above: Performed By: #### L 4500.5000, L300.3900, L500.4050, L100.0100, L501.9520, L500.4100, L501.6750, L3100.8408 #### [facility] [address] [place], [address] Platelet mean volume (Bld) [Entitic vol] 11.5 fL Normal 6.2-12.0 [facility] Comment on above: Performed By: #### L 4500.5000, L300.3900, L500.4050, L100.0100, L501.9520, L500.4100, L501.6750, L3100.8408 #### [facility] [address] [place], [address] Platelets (Bld) [#/Vol] 203 10*3/uL Normal 150-450 [facility] Comment on above: Performed By: #### L 4500.5000, L300.3900, L500.4050, L100.0100, L501.9520, L500.4100, L501.6750, L3100.8408 #### [facility] [address] [place], [address] RBC (Bld) [#/Vol] 4.47 10*6/uL Normal 4.2-5.4 [facility] Comment on above: Performed By: #### L 4500.5000, L300.3900, L500.4050, L100.0100, L501.9520, L500.4100, L501.6750, L3100.8408 #### [facility] [address] [place], [address] RDW SD 39.2 fl Normal 35.1-43.9 [facility] Comment on above: Performed By: #### L 4500.5000, L300.3900, L500.4050, L100.0100, L501.9520, L500.4100, L501.6750, L3100.8408 #### [facility] [address] [place], [address] WBC (Bld) [#/Vol] 5.4 10*3/uL Normal 4.4-11.0 [facility] Comment on above: Performed By: #### L 4500.5000, L300.3900, L500.4050, L100.0100, L501.9520, L500.4100, L501.6750, L3100.8408 #### [facility] [address] [place], [address] CRP, High Sensitivity Cardia con 05-24-2022 CRP HIGH SENS 0.67 mg/L Normal [facility] Comment on above: Result Comment: Low Relative Risk of CVD <1.0 mg/L Average Relative Risk of CVD 1.0 - 3.0 mg/L High Relative Risk of CVD >3.0 mg/L Performed By: #### L 4500.5000, L300.3900, L500.4050, L100.0100, L501.9520, L500.4100, L501.6750, L3100.8408 #### [facility] [address] [place], [address] Comprehensive Metabolic Prof ilon 05-24-2022 Albumin [Mass/Vol] 4.2 g/dL Normal 3.2-5.0 [facility] Comment on above: Performed By: #### L 4500.5000, L300.3900, L500.4050, L100.0100, L501.9520, L500.4100, L501.6750, L3100.8408 #### [facility] [address] [place], [address] Albumin/Globulin [Mass ratio] 1.4 {ratio} Normal 0.9-2.4 [facility] Comment on above: Performed By: #### L 4500.5000, L300.3900, L500.4050, L100.0100, L501.9520, L500.4100, L501.6750, L3100.8408 #### [facility] [address] [place], [address] ALK P 62 U/L Normal 45-117 [facility] Comment on above: Performed By: #### L 4500.5000, L300.3900, L500.4050, L100.0100, L501.9520, L500.4100, L501.6750, L3100.8408 #### [facility] [address] [place], [address] ALT [Catalytic activity/Vol] 19 U/L Normal 13-56 [facility] Comment on above: Performed By: #### L 4500.5000, L300.3900, L500.4050, L100.0100, L501.9520, L500.4100, L501.6750, L3100.8408 #### [facility] [address] [place], [address] AST [Catalytic activity/Vol] 14 U/L Low 15-37 [facility] Comment on above: Performed By: #### L 4500.5000, L300.3900, L500.4050, L100.0100, L501.9520, L500.4100, L501.6750, L3100.8408 #### [facility] [address] [place], [address] Bilirubin [Mass/Vol] 0.60 mg/dL Normal 0.20-1.00 [facility] Comment on above: Result Comment: For patients on eltrombopag therapy, use of Dimension [place] TBIL is not recommended. Performed By: #### L 4500.5000, L300.3900, L500.4050, L100.0100, L501.9520, L500.4100, L501.6750, L3100.8408 #### [facility] [address] [place], [address] BUN/CRE 17.3 RATIO Normal 10-20 [facility] Comment on above: Performed By: #### L 4500.5000, L300.3900, L500.4050, L100.0100, L501.9520, L500.4100, L501.6750, L3100.8408 #### [facility] [address] [place], [address] CA,Total 9.5 mg/dL Normal 8.5-10.1 [facility] Comment on above: Performed By: #### L 4500.5000, L300.3900, L500.4050, L100.0100, L501.9520, L500.4100, L501.6750, L3100.8408 #### [facility] [address] [place], [address] Chloride [Moles/Vol] 105 mmol/L Normal 98-107 [facility] Comment on above: Performed By: #### L 4500.5000, L300.3900, L500.4050, L100.0100, L501.9520, L500.4100, L501.6750, L3100.8408 #### [facility] [address] [place], [address] CO2 [Moles/Vol] 29.0 mmol/L Normal 21.0-32.0 [facility] Comment on above: Performed By: #### L 4500.5000, L300.3900, L500.4050, L100.0100, L501.9520, L500.4100, L501.6750, L3100.8408 #### [facility] [address] [place], [address] Creatinine [Mass/Vol] 0.58 mg/dL Normal 0.55-1.02 [facility] Comment on above: Result Comment: The validity of the calculated GFR GFRAA in patients over 70 years has not been determined. Clinical correlation is essential. Performed By: #### L 4500.5000, L300.3900, L500.4050, L100.0100, L501.9520, L500.4100, L501.6750, L3100.8408 #### [facility] [address] [place], [address] EST GFR - AA 140 mL/min Normal >60 [facility] Comment on above: Result Comment: Afri can [place] GFR Calc Performed By: #### L 4500.5000, L300.3900, L500.4050, L100.0100, L501.9520, L500.4100, L501.6750, L3100.8408 #### [facility] [address] [place], [address] GAP 6 Normal 5-15 [facility] Comment on above: Performed By: #### L 4500.5000, L300.3900, L500.4050, L100.0100, L501.9520, L500.4100, L501.6750, L3100.8408 #### [facility] [address] [place], [address] GFR/1.73 sq M.predicted among non-blacks MDRD (S/P/Bld) [Vol rate/Area] 116 mL/min/{1.73_m2} Normal >60 [facility] Comment on above: Result Comment: Non- GFR Calc Performed By: #### L 4500.5000, L300.3900, L500.4050, L100.0100, L501.9520, L500.4100, L501.6750, L3100.8408 #### [facility] [address] [place], [address] Globulin (S) [Mass/Vol] 3.1 g/dL Normal 2.2-4.2 [facility] Comment on above: Performed By: #### L 4500.5000, L300.3900, L500.4050, L100.0100, L501.9520, L500.4100, L501.6750, L3100.8408 #### [facility] [address] [place], [address] Glucose [Mass/Vol] 89 mg/dL Normal 74-106 [facility] Comment on above: Performed By: #### L 4500.5000, L300.3900, L500.4050, L100.0100, L501.9520, L500.4100, L501.6750, L3100.8408 #### [facility] [address] [place], [address] Potassium [Moles/Vol] 3.6 mmol/L Normal 3.5-5.1 [facility] Comment on above: Performed By: #### L 4500.5000, L300.3900, L500.4050, L100.0100, L501.9520, L500.4100, L501.6750, L3100.8408 #### [facility] [address] [place], [address] Sodium [Moles/Vol] 140 mmol/L Normal 136-145 [facility] Comment on above: Performed By: #### L 4500.5000, L300.3900, L500.4050, L100.0100, L501.9520, L500.4100, L501.6750, L3100.8408 #### [facility] [address] [place], [address] T PROT 7.3 g/dL Normal 6.4-8.2 [facility] Comment on above: Performed By: #### L 4500.5000, L300.3900, L500.4050, L100.0100, L501.9520, L500.4100, L501.6750, L3100.8408 #### [facility] [address] [place], [place], [address] Urea nitrogen [Mass/Vol] 10 mg/dL Normal 7-18 [facility] Comment on above: Performed By: #### L 4500.5000, L300.3900, L500.4050, L100.0100, L501.9520, L500.4100, L501.6750, L3100.8408 #### [facility] [address] [place], [address] Determination of erythrocyte mean corpuscular volume (MCV)Ordered By: Lashawn Bryant on 05-24-2022 MCV (RBC) [Entitic vol] 88.8 fL 81-99 [facility] Hematocrit Auto (Bld) [Volum e fraction]Ordered By: Lashawn Bryant on 05-24-2022 Hematocrit (Bld) [Volume fraction] 39.7 % 37-47 [facility] INR in Blood by Coagulation assayOrdered By: Lashawn Bryant on 05-24-2022 INR Coag (Bld) [Relative time] 0.9 {INR} [facility] - Chemistry and C hemistry - challengeOrdered By: Lsahawn Bryant on 05-24-2022 ALP [Catalytic activity/Vol] 62 U/L 45-117 [facility] ALT [Catalytic activity/Vol] 19 U/L 13-56 [facility] CO2 [Moles/Vol] 29.0 mmol/L 21.0-32.0 [facility] Globulin (S) [Mass/Vol] 3.1 g/dL 2.2-4.2 [facility] Urea nitrogen/Creatinine [Mass ratio] 17.3 mg/mg 10-20 [facility] - CoagulationOrde red By: Lashawn Bryant on 05-24-2022 PT Coag (PPP) [Time] 12.0 s 11.7-14.9 [facility] - Hematology and Cell countsOrdered By: Lashawn Bryant on 05-24-2022 Erythrocyte distribution width (RBC) [Entitic vol] 39.2 fL 35.1-43.9 [facility] [facility] Erythrocyte distribution width (RBC) [Ratio] 12.1 % 11.6-14.6 [facility] Immature granulocytes/100 WBC (Bld) 0.200 % 0.0-0.9 [facility] Comment on above: IG% - Immature Granu locytes (promyelocytes, myelocytes and metamyelocytes) > 1% indicates that a LEFT SHIFT is Present. MCH (RBC) [Entitic mass] 30.6 pg 27.0-32.0 [facility] Nucleated RBC/100 WBC (Bld) [Ratio] 0 % 0-5 [facility] Lipid Profileon 05-24-2022 Cholesterol [Mass/Vol] 243 mg/dL High 200 [facility] Comment on above: Result Comment: <200 mg/dL Desirable 200-240 mg/dL Borderline >240 mg/dL High Risk Performed By: #### L 4500.5000, L300.3900, L500.4050, L100.0100, L501.9520, L500.4100, L501.6750, L3100.8408 #### [facility] [address], [address] Cholesterol in HDL [Mass/Vol] 67 mg/dL Normal [facility] Comment on above: Result Comment: The drugs N-Acetylcysteine and Metamizole may falsely depress this assay. Reference Range HDL <40 mg/dL Low HDL Cholesterol HDL >or= 60 mg/dL High HDL Cholesterol Performed By: #### L 4500.5000, L300.3900, L500.4050, L100.0100, L501.9520, L500.4100, L501.6750, L3100.8408 #### [facility] [address] [place], [address] Cholesterol in LDL [Mass/Vol] 149 mg/dL High 0-130 [facility] Comment on above: Performed By: #### L 4500.5000, L300.3900, L500.4050, L100.0100, L501.9520, L500.4100, L501.6750, L3100.8408 #### [facility] [address] [place], [address] Cholesterol in VLDL [Mass/Vol] 27 mg/dL Normal 5-40 [facility] Comment on above: Performed By: #### L 4500.5000, L300.3900, L500.4050, L100.0100, L501.9520, L500.4100, L501.6750, L3100.8408 #### [facility] [address] [place], [address] Triglyceride [Mass/Vol] 135 mg/dL Normal [facility] Comment on above: Result Comment: The drugs N-Acetylcysteine and Metamizole may falsely depress this assay. Serum Triglycerides Reference Interval Normal <150 mg/dL Borderline high 150 - 199 mg/dL High 200 - 499 mg/dL Very High > or = 500 mg/dL Performed By: #### L 4500.5000, L300.3900, L500.4050, L100.0100, L501.9520, L500.4100, L501.6750, L3100.8408 #### [facility] [address] [place], [address] MCHC Auto (RBC) [Mass/Vol]Or dered By: Lashawn Bryant on 05-24-2022 MCHC (RBC) [Mass/Vol] 34.5 g/dL 32-36 [facility] No Panel InformationOrdered By: Lashawn Bryant on 05-24-2022 Anti-Cardiolipin IgM Antibody < 9 MPL U/mL 0-12 [facility] Comment on above: Negative: <13 Indete rminate: 13 - 20 Low-Med Positive: >20 - 80 High Positive: >80 C-Reactive Protein High Sensitivity 0.67 mg/L <3.00 [facility] Comment on above: Low Relative Risk of CVD <1.0 mg/L Average Relative Risk of CVD 1.0 - 3.0 mg/L High Relative Risk of CVD >3.0 mg/L Estimated GFR (MDRD) Amer 140 mL/min >60 [facility] Comment on above: GFR Calc Estimated GFR (MDRD) Non-Af Amer 116 mL/min >60 [facility] Comment on above: Non- GFR Calc Factor V Leiden Mutation Comment . 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 See Additional Clinical Information andComments.Additional Clinical Information:Venous thromboembolism is a multifactorial diseaseinfluenced by genetic, environmental, and circumstantialrisk factors. The c.1601G>A (p. [id number]) variant in theF5 gene, commonly referred to [...] F2 c.*97G>Avariant and Factor V Leiden (PMID: 15358119). Additionalrisk factors include but are not limited [...] for health careproviders to discuss results at [phone] ([phone]).Test Details:Variant Analyzed: c.1601G>A (p. Oun391Gyv), referred toas Factor V LeidenMethods/Limitations:DNA analysis of [...] was developed and its performance characteristicsdetermined by marinanow. It has not been cleared orapproved by the Food and Drug Administration.References:Devon S, Sun AK, Praneeth R, Radha WW, Ja JH; [facility] HOSPITALProfessional Practice and Guidelines Committee. Addendum:[employer] consensus statement onfactor V Leiden mutation testing. Maryjo Med. 2020May 29.doi: 10.1038/[id number]-h. PMID: 02519858.Dwight WANG. Factor V Leiden Thrombophilia. 1998August 07(Updated 2017Mar 30). In: Adlaid MP, Marcellus HH, Lyle RA,et al., editors. Caden([place]aton) (Internet). [place] ([place]):[facility]; 4140-0046. Availablefrom: https://www.ncbi.nlm.nih.gov/books/WUI9775/Rich S, Sun AK, Ronnell X, Ricky B, Sybil EB, Sienna P,Kristin CS; [facility] Narcotics Detective Committee.Venous thromboembolism laboratory testing (factor V Leidenand factor II c.*97G>A), 2018 update: a technical standardof the [place] [employer] and [employer]omics(ACMG). Maryjo Med. 2017;20(12):5151-3585. doi:10.1038/j24707-388-3351-x. Epub 2017Dec 29. PMID: 12348235.Liliam Starr, PhD, Theodora Liu, PhDJaspreet Webb, PhD, Dariela Schilling, PhD, Jessica Alicea, PhD, FACHEATHER Nicolas, PhD, Lillian Vick, PhD, Paulo Christiansen, PhD, FACMGPerformed at: [facility] [address] [id number] Director: Jamari Medina PhD, Phone: [phone] at: [facility] [id number] [place], [place] [id number] Director: Cam Esteban [facility], Phone: [phone] Thyroid Stimulating Hormone (TSH) 1.77 uIU/mL 0.358-3.74 [facility] Platelets bldOrdered By: Jaswinder Bryant on 05-24-2022 Platelets (Bld) [#/Vol] 203 10*3/uL 150-450 [facility] Prothrombin Time w/INRon INR Coag (PPP) [Relative time] 0.9 {INR} Normal [facility] Comment on above: Performed By: #### L 4500.5000, L300.3900, L500.4050, L100.0100, L501.9520, L500.4100, L501.6750, L3100.8408 #### [facility] [address] [place], [address] PT Coag (PPP) [Time] 12.0 s Normal 11.7-14.9 [facility] Comment on above: Performed By: #### L 4500.5000, L300.3900, L500.4050, L100.0100, L501.9520, L500.4100, L501.6750, L3100.8408 #### [facility] [address] [place], [place], [id number] Serum cardiolipin IgG antibo dy assay by immunoassay (units/volume)Ordered By: Lashawn Bryant on 05-24-2022 Cardiolipin IgG IA Qn (S) < 9 GPL U/mL 0-14 [facility] Comment on above: Negative: <15 Indete rminate: 15 - 20 Low-Med Positive: >20 - 80 High Positive: >80 Serum or plasma albumin ezekiel urement (mass/volume)Ordered By: Lashawn Bryant on 05-24-2022 Albumin [Mass/Vol] 4.2 g/dL 3.2-5.0 [facility] Serum or plasma albumin/glob ulin mass ratioOrdered By: Lashawn Bryant on 05-24-2022 Albumin/Globulin [Mass ratio] 1.4 {ratio} 0.9-2.4 [facility] Serum or plasma calcium ezekiel urement (mass/volume)Ordered By: Lashawn Bryant on 05-24-2022 Calcium [Mass/Vol] 9.5 mg/dL 8.5-10.1 [facility] Serum or plasma cardiolipin IgA antibody assay (units/volume)Ordered By: Lashawn Bryant on 05-24-2022 Cardiolipin IgA Qn < 9 APL U/mL 0-11 [facility] Comment on above: Negative: <12 Indete rminate: 12 - 20 Low-Med Positive: >20 - 80 High Positive: >80 Serum or plasma cholesterol in HDL measurement (mass/volume)Ordered By: Lashawn Bryant on 05-24-2022 Cholesterol in HDL [Mass/Vol] 67 mg/dL >40 [facility] Comment on above: The drugs N-Acetylcy steine and Metamizole may falsely depress this assay. Reference Range HDL <40 mg/dL Low HDL Cholesterol HDL >or= 60 mg/dL High HDL Cholesterol Serum or plasma cholesterol in VLDL measurement (mass/volume)Ordered By: Lashawn Bryant on 05-24-2022 Cholesterol in VLDL [Mass/Vol] 27 mg/dL 5-40 [facility] Serum or plasma creatinine m easurement (mass/volume)Ordered By: Lashawn Bryant on 05-24-2022 Creatinine [Mass/Vol] 0.58 mg/dL 0.55-1.02 [facility] Comment on above: The validity of the calculated GFR & GFRAA in patients over 70 years has not been determined. Clinical correlation is essential. Serum or plasma low density lipoprotein (LDL) cholesterol measurement (mass/volume)Ordered By: Lashawn rByant on 05-24-2022 Cholesterol in LDL [Mass/Vol] 149 mg/dL 0-130 [facility] Serum or plasma urea nitroge n measurement (mass/volume)Ordered By: Lashawn Bryant on 05-24-2022 Urea nitrogen [Mass/Vol] 10 mg/dL 7-18 [facility] Thin prep Papanicolaou smear with manual screeningOrdered By: Lashawn Bryant on 05-24-2022 Thin prep Papanicolaou smear with manual screening 14 U/L 15-37 [facility] Thin prep Papanicolaou smear with manual screening 6 5-15 [facility] Thyroid Stim Hormone (TSH)on 05-24-2022 TSH 1.77 uIU/mL Normal 0.358-3.74 [facility] Comment on above: Performed By: #### L 4500.5000, L300.3900, L500.4050, L100.0100, L501.9520, L500.4100, L501.6750, L3100.8408 #### [facility] [address] [place], [address] [facility] 10-19-2021 [facility] Vital Signs Date Time Vital Sign Value Performing Clinician Joelle valente 10-26-2023 09:30-0400 Body mass index (BMI) [Ratio] 31.99 kg/m2 Bernarda Suggs MD Work Phone: [facility] 10-26-2023 09:30-0400 Body weight 87.2 kg Bernarda Suggs MD Work Phone: [facility] 10-26-2023 09:30-0400 Diastolic blood pressure 78 mm[Hg] Bernarda Suggs MD Work Phone: [facility] 10-26-2023 09:30-0400 Systolic blood pressure 122 mm[Hg] Bernarda Suggs MD Work Phone: [facility] 09-13-2023 10:43-0400 Body height 165.1 cm Barbie Pearl MD Work Phone: [facility] 09-13-2023 10:43-0400 Body mass index (BMI) [Ratio] 31.45 kg/m2 Barbie Pearl MD Work Phone: [facility] 09-13-2023 10:43-0400 Body weight 85.73 kg Barbie Pearl MD Work Phone: [facility] 09-13-2023 10:43-0400 Diastolic blood pressure 68 mm[Hg] Barbie Pearl MD Work Phone: [facility] 09-13-2023 10:43-0400 Heart rate 65 /min Barbie Pearl MD Work Phone: [facility] 09-13-2023 10:43-0400 SaO2% (BldA) [Mass fraction] 98 % Barbie Pearl MD Work Phone: [facility] 09-13-2023 10:43-0400 Systolic blood pressure 104 mm[Hg] Barbie Pearl MD Work Phone: [facility] 05-24-2022 15:45-0500 Body height 165.1 cm [facility] 05-24-2022 15:45-0500 Body mass index (BMI) [Ratio] 31.6 kg/m2 [facility] 05-24-2022 15:45-0500 Body temperature 97.5 [degF] [facility] 05-24-2022 15:45-0500 Body weight 86.18 kg [facility] 05-24-2022 15:45-0500 Diastolic blood pressure 60 mm[Hg] [facility] 05-24-2022 15:45-0500 Heart rate 60 /min [facility] 05-24-2022 15:45-0500 Respiratory rate 18 /min [facility] 05-24-2022 15:45-0500 SaO2% (BldA) [Mass fraction] 99 % [facility] 05-24-2022 15:45-0500 Systolic blood pressure 104 mm[Hg] [facility] 02-23-2022 17:17-0500 Body mass index (BMI) [Ratio] 29.9 kg/m2 [facility] 02-23-2022 17:17-0500 Body temperature 97.5 [degF] [facility] 02-23-2022 17:17-0500 Body weight 81.64 kg [facility] 02-23-2022 17:17-0500 Diastolic blood pressure 70 mm[Hg] [facility] 02-23-2022 17:17-0500 Heart rate 71 /min [facility] 02-23-2022 17:17-0500 Respiratory rate 18 /min [facility] 02-23-2022 17:17-0500 SaO2% (BldA) [Mass fraction] 99 % [facility] 02-23-2022 17:17-0500 Systolic blood pressure 120 mm[Hg] [facility] 02-08-2022 15:12-0500 Body mass index (BMI) [Ratio] 29.7 kg/m2 [facility] 02-08-2022 15:12-0500 Body temperature 97.3 [degF] [facility] 02-08-2022 15:12-0500 Body weight 81.19 kg [facility] 02-08-2022 15:12-0500 Diastolic blood pressure 70 mm[Hg] [facility] 02-08-2022 15:12-0500 Heart rate 72 /min [facility] 02-08-2022 15:12-0500 Respiratory rate 18 /min [facility] 02-08-2022 15:12-0500 SaO2% (BldA) [Mass fraction] 97 % [facility] 02-08-2022 15:12-0500 Systolic blood pressure 128 mm[Hg] [facility] Encounters Encounter Date Encounter Type Care Provider Facility Start: 08-15-2024 End: 08-15-2024 Emergency department patient visit LASHAWN BRYANT Facility:[facility] Start: 02-28-2024 End: 02-28-2024 Refill Will Knox MD Work Phone: Obstetrics/Gynecology Comment on above: Refill Request Start: 02-28-2024 End: 02-28-2024 Telephone encounter Will Knox MD Work Phone: Obstetrics/Gynecology Start: 10-26-2023 End: 10-26-2023 ambulatory BERNARDA SUGGS Facility:[facility] Start: 10-26-2023 End: 10-26-2023 Patient encounter status Bernarda Suggs MD Work Phone: [facility] Work Phone: Start: 10-26-2023 End: 10-26-2023 Periodic preventive med est patient 40-64yrs Bernarda Suggs MD Work Phone: Obstetrics/Gynecology Comment on above: Encounter for gyneco logical examination (general) (routine) without abnormal findings (Primary Dx); Encounter for screening mammogram for breast cancer; Obesity, Class I, BMI 30-34.9; Encounter for screening for malignant neoplasm of colon; Menopause; Vaginal dryness Start: 09-27-2023 ambulatory LASHAWN L BRYANT Facil ity:[facility] Start: 09-27-2023 End: 09-27-2023 Subsequent hospital visit by physician Stress Lab [facility] Work Phone: Cardiology Lab Comment on above: Chest pain, unspecif ied type [R07.9] Start: 09-27-2023 ambulatory LASHAWN BRYANT Facil ity:[facility] Start: 09-27-2023 End: 09-27-2023 Subsequent hospital visit by physician [facility] Work Phone: Molecular Imaging Comment on above: Chest pain, unspecif ied type [R07.9] Start: 09-26-2023 Documentation procedure Mammog brad Coordinator [facility] Department Start: 09-26-2023 Letter encounter Mammography Coordinator [facility] Start: 09-26-2023 Telephone encounter Francesca carrington RN Cardiology Lab Comment on above: Reminder Call Start: 09-25-2023 ambulatory WILL KNOX Facili ty:[facility] Start: 09-25-2023 End: 09-25-2023 Subsequent hospital visit by physician Screen/Diagnostic Mammo 1 [facility] Work Phone: Mammography Comment on above: Encounter for screen ing mammogram for malignant neoplasm of breast [Z12.31] Start: 09-19-2023 ambulatory UNKNOWN PROVIDER Facili ty:[facility] Start: 09-19-2023 End: 09-19-2023 Subsequent hospital visit by physician [facility] Work Phone: Cardiology Lab Comment on above: Other chest pain [R0 7.89] Start: 09-13-2023 End: 09-13-2023 ambulatory BARBIE PEARL Facility:[facility] Start: 09-13-2023 End: 09-13-2023 Patient encounter procedure Barbie Pearl MD Work Phone: Cardiology Comment on above: Other chest pain (Pr imary Dx); Chest pain, unspecified type Start: 08-31-2023 End: 08-31-2023 Emergency department patient visit LASHAWN Twyla BRYANT Facility:[facility] Start: 08-29-2023 Refill Will lozano MD Work Phone: Obstetrics/Gynecology Comment on above: Med Change Request Start: 08-22-2023 Telephone encounter Will Mcginnis MD Work Phone: Obstetrics/Gynecology Comment on above: Refill Request Start: 11-22-2022 End: 11-23-2022 ambulatory BETHEL MEHTA MD-[facility] Facility:[id number] Start: 05-31-2022 Encounter for genera l adult medical examination without abnormal findings Lashawn Manny [employer] [facility] Start: 05-24-2022 End: 05-24-2022 Patient encounter procedure [facility]-Laboratory, Specimen Start: 05-24-2022 Patient encounter status [facility] Start: 05-24-2022 End: 05-24-2022 ambulatory Lashawnshu ArcosBryant [employer]ARM [employer] [facility] Work Phone: Start: 03-16-2022 Refill Will lozano [...] breast [Z12.31] Start: 10-24-2019 Patient encounter status [facility] Start: 08-05-2015 Patient encounter status Scree n/[facility]ostic Hosp Work Phone: [facility] Work Phone: Procedures Date Procedure Procedure Detail [...] P,Tdap,Td Vaccine (7 - Td or Tdap) [facility] Start: 11-29-2026 Urine microalbumin profile DTA P,TDAP,TD (3 - Td or Tdap) [facility] Start: 08-30-2026 Diabetes Screening Diabetes Screenin g [facility] Start: 12-31-2024 HPV TESTING HPV TESTING [facility] Start: 12-31-2024 PAP TESTING PAP TESTING [facility] Start: 12-31-2024 Screening for malign ant neoplasm of cervix [facility] Start: 09-24-2024 Screening for malign ant neoplasm of breast Mammogram Screening [facility] Start: 11-26-2023 Covid-19 Vaccine ( season) Covid-19 Vaccine () [facility] Start: 11-26-2023 Influenza vaccination [facility] Start: 10-26-2023 End: 10-26-2023 Patient encounter procedure 10/26/2023 9:30 AM EDT Office Visit Obstetrics/Gynecology [address] [address] Bernarda Suggs MD [address] [place] [address] ANNUAL Obstetrics/Gynecolog y Comment on above: ANNUAL Start: 09-27-2023 Subsequent hospital visit by physician 09/27/2023 9:00 AM EDT Hospital Encounter Cardiology Lab [address] [place] [address] Chest pain, unspecified type [R07.9] Cardiology Lab Comment on above: Chest pain, unspecif ied type [R07.9] Start: 09-27-2023 End: 09-27-2023 Patient encounter procedure 09/27/2023 8:00 AM EDT Appointment Molecular Imaging [address] [place] [id number] Chest pain, unspecified type [R07.9] Molecular Imaging Comment on above: Chest pain, unspecif ied type [R07.9] Start: 09-25-2023 End: 09-25-2023 Patient encounter procedure 09/25/2023 2:40 PM EDT Appointment Mammography [address] [place] [address] Mammography Start: 09-19-2023 End: 09-19-2023 Patient encounter procedure 09/19/2023 7:00 AM EDT Appointment Cardiology Lab [address] [place] [address] Harjinder Nascimento Cardiology Lab Comment on above: Ok nuha Nascimento Start: 09-13-2023 End: 09-12-2024 Echocardiography ECHO Cardiology Routine Other chest pain Chest pain, unspecified type Expected: 09/13/2023, Expires: 09/12/2024 [facility] Work Phone: Comment on above: Expected: 09/13/2023 , Expires: 09/12/2024 Start: 09-13-2023 End: 10-12-2024 NM Heart Perfusion W multiple states of exercise NM CARDIAC PERF STRESS/EXERCISE Radiology Routine Chest pain, unspecified type Expected: 09/13/2023, Expires: 10/12/2024 [facility] Comment on above: Expected: 09/13/2023 , Expires: 10/12/2024 Start: 11-25-2022 Covid-19 Vaccine ( season) Covid-19 Vaccine () [facility] Start: 11-07-2022 Lipid panel Lipid Screening [facility] Start: 11-07-2022 LIPID SCREEN LIPID SCREEN [facility] Start: 10-19-2022 Mammography MAMMOGRAM [facility] Start: 10-19-2022 Screening for malign ant neoplasm of breast Mammogram Screening [facility] Start: 11-25-2021 Influenza vaccination INFLUENZA (#1) [facility] Start: 02-13-2021 DIABETES SCREEN [facility] Start: 02-13-2021 Diabetes Screening Diabetes Screenin g [facility] Start: 2018 SHINGRIX VACCINE (1 of 2) AGOSTO GRIX VACCINE (1 of 2) [facility] Start: 2013 COLOGUARD (FIT-DNA) COLOGUARD (FIT-D NA) [facility] Start: 2013 Colonoscopy COLONOSCOPY [facility] Start: 2013 COLORECTAL CANCER SCREENING COLORECTAL CANCER SCREENING [facility] Start: [address] COLONOGRAPHY [facility] Start: 2013 FECAL OCCULT BLOOD FECAL OCCULT BLOO D [facility] Start: 2013 Screening for malign ant neoplasm of colon [facility] Start: 2013 SIGMOIDOSCOPY SIGMOIDOSCOPY [facility] Start: 10-16-1987 Hepatitis B Vaccine (1 of 3 - 19+ 3-dose series) Hepatitis B Vaccine (1 of 3 - 19+ 3-dose series) [facility] Start: 1986 HEPATITIS C SCREENING HEPATITIS C [facility] Start: 1986 Hepatitis C screening Hepatitis C [facility] Start: 1986 HIV SCREENING HIV SCREENING [facility] Start: 1986 HIV screening HIV Screening [facility] Start: 04-17-1969 COVID-19 VACCINE (#1) COVID-19 VACCI NE (#1) [facility] Start: 1968 HEPATITIS B (1 of 3 - 3-dose series) HEPATITIS B (1 of 3 - 3-dose series) [facility] End: 09-20-2024 DBT Breast - bilateral screening BARBRA SCREENING W BRENDA Radiology Routine Encounter for screening mammogram for malignant neoplasm of breast 1 Occurrences starting 08/22/2023 until 09/20/2024 [facility] Work Phone: Comment on above: 1 Occurrences starti ng 08/22/2023 until 09/20/2024 DBT Breast - bilater al screening BARBRA SCREENING W BRENDA Radiology Routine Encounter for screening mammogram for malignant neoplasm of breast 09/25/2023 2:56 PM EDT [facility] Work Phone: End: 11-24-2024 DBT Breast - bilateral screening BARBRA SCREENING W BRENDA Radiology Routine Encounter for gynecological examination (general) (routine) without abnormal findings 1 Occurrences starting 10/26/2023 until 11/24/2024 [facility] Work Phone: Comment on above: 1 Occurrences starti ng 10/26/2023 until 11/24/2024 Immunizations Immunization Date Immunization Notes Care Provider Micheline atkinson 12-11-2019 influenza virus vaccine, unspecified formulation Will Knox MD Work Phone: [facility] 09-19-2019 tetanus toxoid, redu guy diphtheria toxoid, and acellular pertussis vaccine, adsorbed [facility] 10-01-2018 tetanus toxoid, redu guy diphtheria toxoid, and acellular pertussis vaccine, adsorbed [facility] 12-27-2016 influenza, injectabl e, quadrivalent, contains preservative Screen/Diagnostic Hosp Work Phone: [facility] 11-29-2016 tetanus toxoid, redu guy diphtheria toxoid, and acellular pertussis vaccine, adsorbed Screen[facility]Diagnostic Hosp Work Phone: [facility] 02-21-2012 tetanus toxoid, redu guy diphtheria toxoid, and acellular pertussis vaccine, adsorbed [facility] Work Phone: [facility] Payers Date Payer Category Payer Self-pay [id number] 2021 [facility] [id number] 2021-Present [phone] [address] [place] [address] PPO [id number] 2021 [facility] FUN[facility] [id number] 2021-Present [phone] [address] [place] [address] PPO [id number] 2021 Unknown [id number] 1970 Unknown [id number] Unknown RENAN [id number] Unknown [facility] [id number] Unknown [id number] Social History Date Type Detail Facility Start: 05-05-2011 End: 09-13-2023 Tobacco smoking status NHIS Never smoked tobacco [facility] Start: 05-05-2011 End: 09-13-2023 Tobacco use and exposure Smokeless tobacco non-user [facility] Start: 05-07-2021 End: 10-26-2023 Alcohol intake Current drinker of alcohol (finding) [facility] Start: 03-01-2020 End: 05-07-2021 Alcohol intake [facility] Start: 1970 Sex Assigned At Not on file [facility] Start: 10-09-2021 End: 10-19-2021 Exposure to SARS-CoV-2 (event) Not sure [facility] Start: 10-24-2019 Tobacco smoking stat us NHIS Unknown if ever smoked [facility] Start: 1970 Sex Assigned At Female W [facility] Start: 03-01-2020 End: 05-07-2021 Tobacco use panel [facility] PHQ2 Score 0 [facility] Start: 09-13-2023 Gender identity Identifies as female gender (finding) [facility] Clinical Notes 10-19-2021 to 10-26-2023 Bernarda Suggs MD - 10/26/2023 10:01 AM EDTPatient Alma Anderson CT - 09/27/2023 8:00 AM EDTTelephone Encounter - Francesca Arevalo RN - 09/26/2023 3:00 PM EDT Note Date & Type Note Facility 10-26-2023 Note HNO ID: [id number] Author: BERNARDA SUGGS MD Service: ? Author [...] does protein feels gains does eggs, chicken, belarusian yogurt, Vaginal dryness/painful sex OTC not on HRT Postmenopausal: Yes since age HRT use: No. Last Pap: 01/08/2020 normal HPV: 01/07/2020 negative History of abnormal pap: No Last mammogram: 2023 normal History of abnormal mammogram: No Sexually active: Yes OB History T0 L3 SAB0 IAB0 Ectopic0 Multiple0 Live Births0 Conveyor Feeder History LMP: Ablation Age at Menarche: Age at First : Age at Menopause: Conveyor Feeder History Comments: Sexual Activity: Yes; Male Contraception: [...] external genitalia normal, normal Bartholin's glands, urethra, Albert Lea's glands, no vulvar lesions, no cervical lesions, [...] 30-34.9 Current Assessment AND Plan Refer to [facility] wt mgmt, frustrated as regular workout routine not helping, is in meopause Relevant Orders CONSULT TO [facility] WEIGHT MANAGEMENT PROGRAM Vaginal dryness Overview Start vaginal estrogen 3x wkly 1/2 applicator Menopause Relevant Orders CONSULT TO [facility] WEIGHT MANAGEMENT PROGRAM Other Visit Diagnoses Encounter for gynecological examination (general) (routine) without abnormal findings - Primary Relevant Orders BARBRA SCREENING W BRENDA Encounter for screening mammogram for breast cancer Encounter for screening for malignant neoplasm of colon Relevant Orders CONSULT TO GASTROENTEROLOGY Bernarda Suggs MD [facility] 10-26-2023 History of Presen t illness [...] does protein feels gains does eggs, chicken, belarusian yogurt, Vaginal dryness/painful sex OTC not on HRT Postmenopausal: Yes since age HRT use: No. Last Pap: 01/08/2020 normal HPV: 01/07/2020 negative History of abnormal pap: No Last mammogram: 2023 normal History of abnormal mammogram: No Sexually active: Yes OB History T0 L3 SAB0 IAB0 Ectopic0 Multiple0 Live Births0 Conveyor Feeder History LMP: Ablation Age at Menarche: Age at First : Age at Menopause: Conveyor Feeder History Comments: Sexual Activity: Yes; Male Contraception: [...] external genitalia normal, normal Bartholin's glands, urethra, Albert Lea's glands, no vulvar lesions, no cervical lesions, [...] 30-34.9 Current Assessment & Plan Refer to [facility] wt bernard, frustrated as regular workout routine not helping, is in meopause Relevant Orders CONSULT TO [facility] WEIGHT MANAGEMENT PROGRAM Vaginal dryness Overview Start vaginal estrogen 3x wkly 1/2 applicator Menopause Relevant Orders CONSULT TO [facility] WEIGHT MANAGEMENT PROGRAM Other Visit Diagnoses Encounter for gynecological examination (general) (routine) without abnormal findings - Primary Relevant Orders BARBRA SCREENING W BRENDA Encounter for screening mammogram for breast cancer Encounter for screening for malignant neoplasm of colon Relevant Orders CONSULT TO GASTROENTEROLOGY Bernarda Suggs MD documented in this encounter [facility] 10-26-2023 Instructions Bernarda Suggs MD - 10/26/2023 10:01 AM EDT ACOG Screening Guidelines The following health screening schedule is recommended by the [employer] (ACOG). Some [...] also increase risk. documented in this encounter [facility] 09-27-2023 History of Presen t illness Narrative [...] PATIENT PRESENTS WITH AN IMPLANTABLE OR ATTACHED RETAIL SALES CLERK: No CREATININE: Creatinine Date Value Ref Range [...] Discontinued PROCEDURE TYPE: NM Stress: 14.1 mCi [id number] was administered IV for Rest Imaging at 07:53 by J. 36.0 mCi [id number] was administered IV for Stress Imaging at 09:08 by . PATIENT DISCHARGED TO: Ambulatory patient, left MD department area. A Diagnostic radioactive procedure has taken place, with no further precautions necessary other than routine body substance precautions. More information regarding radiation safety can be found using this link: [email or web address] [email or web address]-%20Diagnostic%20N uclear%20Medicine%20Procedures.p df SIGNATURE: HORACIO Muñiz PATIENT NAME: Meghan Culp DATE: September 27, 2023 TIME: 8:04 AM PAGER/CONTACT #: documented in this encounter [facility] 09-27-2023 Note HNO ID: [id number] Author: ALMA PINTO CT Service: Nuclear Medicine [...] PATIENT PRESENTS WITH AN IMPLANTABLE OR ATTACHED RETAIL SALES CLERK: No CREATININE: Creatinine Date Value Ref Range [...] Discontinued PROCEDURE TYPE: NM Stress: 14.1 mCi [id number] was administered IV for Rest Imaging at 07:53 by PATRICIA. 36.0 mCi [id number]-Rhgpnxx was administered IV for Stress Imaging at 09:08 by . PATIENT DISCHARGED TO: Ambulatory patient, left NM department area. A Diagnostic radioactive procedure has taken place, with no further precautions necessary other than routine body substance precautions. More information regarding radiation safety can be found using this link: [email or web address] [email or web address]-% 20Diagnostic%20Nuclear%20Medicin e%20Procedures.pdf SIGNATURE: HORACIO Muñiz PATIENT NAME: Meghan Ireland Robbi DATE: September 27, 2023 TIME: 8:04 AM PAGER/CONTACT #: [facility] 09-26-2023 Telephone encounter Note Spoke to pt regarding reminder and instructions for stress test tomorrow. This included where to check in, length of test and no caffeine for 12 hours prior to test, [facility] 09-26-2023 Miscellaneous Notes Spoke to pt regarding reminder and instructions for stress test tomorrow. This included where to check in, length of test and no caffeine for 12 hours prior to test, documented in this encounter [facility] 09-26-2023 Note Formatting of this n ote might be different from the original. September 27, 2023 PID: [id number] Meghan Culp [address] [place] [address] Dear Ms. Culp, We are pleased to [...] report will be kept on file at [facility] as part of your permanent medical record and are available for your continuing care. Thank you for allowing us to help in meeting your health care needs. Sincerely, Dr. Hanson Interpreting Radiologist [facility] (Normal over 40) [facility] 09-26-2023 Miscellaneous Notes September 27, 2023 PID: [id number] Meghan Culp [address] [place] [address] Dear Ms. Culp, We are pleased to [...] report will be kept on file at [facility] as part of your permanent medical record and are available for your continuing care. Thank you for allowing us to help in meeting your health care needs. Sincerely, Dr. Hanson Interpreting Radiologist [facility] (Normal over 40) documented in this encounter [facility] 09-25-2023 History of Presen t illness Narrative [...] PATIENT PRESENTS WITH AN IMPLANTABLE OR ATTACHED RETAIL SALES CLERK: No RADIOLOGY DEPARTMENT: Mammography PERIPHERAL IV DATA: Not applicable SIGNED BY: RIK Ochoa)(M) September 25, 2023 2:57 PM documented in this encounter [facility] 09-25-2023 Note HNO ID: [id number] Author: DOV SEAY RT (R) Service: Radiology [...] PATIENT PRESENTS WITH AN IMPLANTABLE OR ATTACHED RETAIL SALES CLERK: No RADIOLOGY DEPARTMENT: Mammography PERIPHERAL IV DATA: Not applicable SIGNED BY: RIK Ochoa)(M) September 25, 2023 2:57 PM [facility] 09-13-2023 History of Presen t illness Narrative Images from the original note were not included. [facility] [place] SECTION OF REGIONAL CARDIOLOGY OUTPATIENT VISIT DATE 09/13/2023 OUTPATIENT VISIT TYPE NEW PRIMARY CARE PHYSICIAN: Lashawn Bryant (Ole) [address] [facility] [address] [place] [address] Patient is being seen at the request [...] leg swelling, lightheadedness, syncope. She engages in [place] [employer] and exercises 3-4x week. She runs [...] W/PROSTHETIC IMPLANT 2002 Bilateral LAP APPY AT [facility] OTHR SRGY 08/28/2012 LAPAROSCOPIC LYSIS OF INTESTINAL [...] PREVIOUS ECGS AVAILABLE Confirmed by MD MEY, [facility] ([id number]) on 08/31/2023 2:59:43 PM ASSESSMENT/PLAN: 1. Other chest pain - ICD9: 786.59, ICD10: R07.89 - Arrange for echocardiogram and nuclear stress test. Barbie Pearl MD, [facility] Non invasive and Sports International Trade Compliance Manager documented in this encounter [facility] 09-13-2023 Note HNO ID: [id number] Author: BARBIE PEARL MD Service: ? Author Type: Physician Type: Progress Notes Filed: 09/13/2023 15:58 Note Text: [facility] [place] SECTION OF REGIONAL CARDIOLOGY OUTPATIENT VISIT DATE 09/13/2023 OUTPATIENT VISIT TYPE NEW PRIMARY CARE PHYSICIAN: Lashawn Bryant ([facility]) [address] [facility] [place] [address] Patient is being seen at the request [...] leg swelling, lightheadedness, syncope. She engages in [place] [employer] and exercises 3-4x week. She runs [...] AHDHES. 08/28/2012 and bilat salpingectomy FABRICIO 2009 [facility] hysteroscopy SALPINGECTOMY BTL Social History Tobacco Use [...] PREVIOUS ECGS AVAILABLE Confirmed by MD MEY, [facility] ([id number]) on 08/31/2023 2:59:43 PM ASSESSMENT/PLAN: 1. Other chest pain - ICD9: 786.59, ICD10: R07.89 - Arrange for echocardiogram and nuclear stress test. Barbie Pearl MD, [facility] Non invasive and Sports International Trade Compliance Manager [facility] 08-22-2023 Note Addended by: ADITHYA DIXON on: 08/22/2023 11:44 AM Modules accepted: Orders [facility] 08-22-2023 Miscellaneous Notes Addended by: ADITHYA DIXON on: 08/22/2023 11:44 AM Modules accepted: Orders Patient is requesting an order for a mammogram. She has an upcoming Annual appt in October. documented in this encounter [facility] 08-22-2023 Telephone encounter Note Patient is requesting an order for a mammogram. She has an upcoming Annual appt in October. [facility] 10-19-2021 History of Presen t illness Narrative [...] 2021 4:45 PM documented in this encounter [facility] Evaluation note Diagnosis Encounter for screening mammogram for malignant neoplasm of breast Other screening mammogram [facility] Diagnosis Onset Date Resolution Status Acute bacterial bronchitis a cute Bilateral otitis media acute Acute bacterial bronchitis a cute Bilateral otitis media acute Fracture of toe of left foot acute Wellness examination [facility] Work Phone: Evaluation note* Diagnosis Encounter for screening mammogram for malignant neoplasm of breast- Primary Other screening mammogram [facility] Diagnosis Chest pain, unspecified type [facility] Diagnosis Chest pain, unspecified type documented in this encounter [facility] note* Diagnosis Encounter for screening mammogram for malignant neoplasm of breast Other screening mammogram documented in this encounter [facility] note* Diagnosis Encounter for gynecological examination (general) [...] Obesity, Class I, BMI 30-34.9 Refer to [facility] wt bernard, frustrated as regular workout routine not helping, is in meopause documented in this encounter [facility] for referral (narrative)* Diagnostic Procedure Only (Routine) - Closed Specialty Diagnoses / Procedures Referred By Peyman guzman Referred To Contact [facility] Diagnoses Encounter for screening mammogram for malignant neoplasm of breast Procedures BARBRA SCREENING SCREENING MAMMOGRAPHY BI 2-VIEW BREAST INC Will Benítez MD [address] [address] [employer] [facility] [place] [facility] [address] Referral ID Status Reason Start Date Expiration Date V isits Requested Visits Authorized [id number] Closed Auto-Generate d Referral 02/03/2021 03/05/2022 1 1 [facility] for referral (narrative)* Diagnostic Procedure Only (Routine) - Pending Review Specialty Diagnoses / Procedures Referred By Peyman guzman Referred To Contact [facility] Diagnoses Encounter for screening mammogram for malignant neoplasm of breast Procedures BARBRA SCREENING W BRENDA SCREENING DIGITAL BREAST TOMOSYNTHESIS BI SCREENING MAMMOGRAPHY BI 2-VIEW BREAST INC CAD Will Knox MD [address] [address] [facility] [address] [place] [address] Referral ID Status Reason Start Date Expiration Date Visits Requested Visits Authorized [id number] Pending Review Auto-Generat ed Referral 08/22/2023 09/20/2024 1 1 [facility] for referral (narrative)* Diagnostic Procedure Only (Routine) - Authorized Specialty Diagnoses / Procedures Referred By Contac t Referred To Contact [facility] Diagnoses Chest pain, unspecified type Procedures NM CARDIAC PERF STRESS/EXERCISE MYOCARDIAL SPECT MULTIPLE STUDIES Barbie Pearl MD [address] [place] [address] [facility] [address] [place] [address] Referral ID Status Reason Start Date Expiration Date V isits Requested Visits Authorized [id number] Authorized 09/13/2023 11/12/2023 2 2 * Outpatient Procedure (Routine) - Authorized Specialty Diagnoses / Procedures Referred By Contac t Referred To Contact [facility] Diagnoses Other chest pain Chest pain, unspecified type Procedures ECHO ECHO TTHRC R-T 2D W/WOM-MODE COMPL SPEC&COLR D Barbie Pearl MD [address] [place] [address] [facility] [place] [address] [place] [address] Referral ID Status Reason Start Date Expiration Date Visits Requested Visits Authorized [id number] Authorized Auto-Generat ed Referral 09/13/2023 09/12/2024 1 1 [facility] for referral (narrative)* Outpatient Procedure (Routine) - Closed Specialty Diagnoses / Procedures Referred By Contac t Referred To Contact [facility] Diagnoses Other chest pain Chest pain, unspecified type Procedures ECHO ECHO TTHRC R-T 2D W/WOM-MODE COMPL SPEC&COLR Barbie Cool MD [address] [place] [address] [facility] [place] [address] [place] [address] Referral ID Status Reason Start Date Expiration Date V isits Requested Visits Authorized [id number] Closed Auto-Generate d Referral 09/13/2023 09/12/2024 1 1 [facility] for referral (narrative)* Diagnostic Procedure Only (Routine) - Closed Specialty Diagnoses / Procedures Referred By Peyman guzman Referred To Contact [facility]LEC[facility] FUNCTIONAL IMAGING Diagnoses Chest pain, unspecified type Procedures NM CARDIAC PERF STRESS/EXERCISE MYOCARDIAL SPECT MULTIPLE STUDIES Barbie Pearl MD [address] [place] [address] [facility] [address] [place] [address] Referral ID Status Reason Start Date Expiration Date Visits Re quested Visits Authorized [id number] Closed 09/13/2023 11/12/2023 2 2 [facility] for visit Narrative* Diagnostic Procedure Only (Routine) - Closed Specialty Diagnoses / Procedures Referred By Peyman guzman Referred To Contact [facility] Diagnoses Encounter for screening mammogram for malignant neoplasm of breast Procedures BARBRA SCREENING SCREENING MAMMOGRAPHY BI 2-VIEW BREAST INC CAD Will Knox MD [address] [place] [address] [facility] [address] [place] [address] Referral ID Status Reason Start Date Expiration Date V isits Requested Visits Authorized [id number] Closed Auto-Generate d Referral 02/03/2021 03/05/2022 1 1 [facility] for visit Narrative* Outpatient Procedure (Routine) - Closed Specialty Diagnoses / Procedures Referred By Peyman guzman Referred To Contact [facility] Diagnoses Other chest pain Chest pain, unspecified type Procedures ECHO ECHO TTHRC R-T 2D W/WOM-MODE COMPL SPEC&COLR D Barbie Pearl MD [address] [place] [address] [place] [address] [facility] [place] [address] [place] [address] Referral ID Status Reason Start Date Expiration Date V isits Requested Visits Authorized [id number] Closed Auto-Generate d Referral 09/13/2023 09/12/2024 1 1 [facility] for visit Narrative* Diagnostic Procedure Only (Routine) - Closed Specialty Diagnoses / Procedures Referred By Peyman t Referred To Contact [facility] Diagnoses Encounter for screening mammogram for malignant neoplasm of breast Procedures BARBRA SCREENING W BRENDA SCREENING DIGITAL BREAST TOMOSYNTHESIS BI SCREENING MAMMOGRAPHY BI 2-VIEW BREAST INC CAD Will Knox MD [address] [place] [address] [facility] [address] [place] [address] Referral ID Status Reason Start Date Expiration Date V isits Requested Visits Authorized [id number] Closed Auto-Generate d Referral 08/22/2023 09/20/2024 1 1 [facility] for visit Narrative* Diagnostic Procedure Only (Routine) - Closed Specialty Diagnoses / Procedures Referred By Peyman guzman Referred To Contact [facility] Diagnoses Chest pain, unspecified type Procedures NM CARDIAC PERF STRESS/EXERCISE MYOCARDIAL SPECT MULTIPLE STUDIES Barbie Pearl MD [address] [place] [address] [facility] [address] [place] [address] Referral ID Status Reason Start Date Expiration Date Visits Re quested Visits Authorized [id number] Closed 09/13/2023 11/12/2023 2 2 [facility] Advance Directives No Advanced Directives Records FoundDocuments on File Type Date Recorded Patient Sourcing Analyst Expl anation Advance Directive(s) 09/30/2018 10:53 AM [...] I, BMI 30-34.9 Menopause Procedures CONSULT TO [facility] WEIGHT MANAGEMENT PROGRAM OFFICE/OUTPATIENT [facility] 60 MINUTES Bernarda Suggs MD [address] [place] [address] Referral ID Status Reason Start Date Expiration Date Visits Requested Visits Authorized [id number] Authorized PCP Requested Referral Auto-Generate d Referral 10/26/2023 10/25/2024 1 1 Specialty Diagnoses / Procedures Referred By Contac t Referred To Contact Gastroenterology Diagnoses Encounter for screening for malignant neoplasm of colon Procedures CONSULT TO GASTROENTEROLOGY OFFICE/OUTPATIENT [facility] 60 MINUTES Bernarda Suggs MD [address] [place] [address] Referral ID Status Reason Start Date Expiration Date Visits Requested Visits Authorized [id number] Authorized PCP Requested Referral 10/26/2023 10/25/2024 1 1 Specialty Diagnoses / Procedures Referred By Contac t Referred To Contact [facility] Diagnoses Encounter for gynecological examination (general) (routine) without abnormal findings Procedures BARBRA SCREENING W BRENDA BARBRA SCREENING W BRENDA SCREENING DIGITAL BREAST TOMOSYNTHESIS BI SCREENING MAMMOGRAPHY BI 2-VIEW BREAST INC CAD Bernarda Suggs MD [address] [place] [address] [facility] [address] [place] [address] Referral ID Status Reason Start Date Expiration Date Visits Requested Visits Authorized [id number] New Request Auto-Generat ed Referral 10/26/2023 11/24/2024 1 1 Additional Source Comments Source Comments (unrecognize d section and content) In the event this informatio n is protected by the Federal Confidentiality of Alcohol and Drug Abuse Patient Records regulations: The Federal rules restrict any use of the information to criminally investigate or prosecute any alcohol or drug abuse patient.[facility] the event this information is protected by the Federal Confidentiality of Alcohol and Drug Abuse Patient Records regulations: The Federal rules restrict any use of the information to criminally investigate or prosecute any alcohol or drug abuse patient.[facility] the event this information is protected by the Federal Confidentiality of Alcohol and Drug Abuse Patient Records regulations: The Federal rules restrict any use of the information to criminally investigate or prosecute any alcohol or drug abuse patient.[facility] the event this information is protected by the Federal Confidentiality of Alcohol and Drug Abuse Patient Records regulations: The Federal rules restrict any use of the information to criminally investigate or prosecute any alcohol or drug abuse patient.[facility] the event this information is protected by the Federal Confidentiality of Alcohol and Drug Abuse Patient Records regulations: The Federal rules restrict any use of the information to criminally investigate or prosecute any alcohol or drug abuse patient.[facility] the event this information is protected by the Federal Confidentiality of Alcohol and Drug Abuse Patient Records regulations: The Federal rules restrict any use of the information to criminally investigate or prosecute any alcohol or drug abuse patient.[facility] the event this information is protected by the Federal Confidentiality of Alcohol and Drug Abuse Patient Records regulations: The Federal rules restrict any use of the information to criminally investigate or prosecute any alcohol or drug abuse patient.[facility] the event this information is protected by the Federal Confidentiality of Alcohol and Drug Abuse Patient Records regulations: The Federal rules restrict any use of the information to criminally investigate or prosecute any alcohol or drug abuse patient.[facility] CenterIn the event this information is protected by the Federal Confidentiality of Alcohol and Drug Abuse Patient Records regulations: The Federal rules restrict any use of the information to criminally investigate or prosecute any alcohol or drug abuse patient.[facility] CenterIn the event this information is protected by the Federal Confidentiality of Alcohol and Drug Abuse Patient Records regulations: The Federal rules restrict any use of the information to criminally investigate or prosecute any alcohol or drug abuse patient.[facility] CenterIn the event this information is protected by the Federal Confidentiality of Alcohol and Drug Abuse Patient Records regulations: The Federal rules restrict any use of the information to criminally investigate or prosecute any alcohol or drug abuse patient.[facility] CenterIn the event this information is protected by the Federal Confidentiality of Alcohol and Drug Abuse Patient Records regulations: The Federal rules restrict any use of the information to criminally investigate or prosecute any alcohol or drug abuse patient.[facility] CenterIn the event this information is protected by the Federal Confidentiality of Alcohol and Drug Abuse Patient Records regulations: The Federal rules restrict any use of the information to criminally investigate or prosecute any alcohol or drug abuse patient.[facility] CenterIn the event this information is protected by the Federal Confidentiality of Alcohol and Drug Abuse Patient Records regulations: The Federal rules restrict any use of the information to criminally investigate or prosecute any alcohol or drug abuse patient.[facility] CenterIn the event this information is protected by the Federal Confidentiality of Alcohol and Drug Abuse Patient Records regulations: The Federal rules restrict any use of the information to criminally investigate or prosecute any alcohol or drug abuse patient.[facility] CenterIn the event this information is protected by the Federal Confidentiality of Alcohol and Drug Abuse Patient Records regulations: The Federal rules restrict any use of the information to criminally investigate or prosecute any alcohol or drug abuse patient.[facility] Care Teams (unrecognized sec tion and content) Plant And Machinery Valuer Relationship Specialty Start Date End Date Lashawn Bryant, FABIOLA.CASINO GAMING WORKER [address] [phone] PCP - General Family Practice 12/17/18 Plant And Machinery Valuer Relationship Specialty Start Date End Date Lashawn Bryant, COOKIE MIXER HELPER.CASINO GAMING WORKER PCP - General Family Medicine 12/17/18 Plant And Machinery Valuer Relationship Specialty Start Date End Date Lashawn Bryant, COOKIE MIXER HELPER.CASINO GAMING WORKER [address] [place], [place] [phone] PCP - General Family Medicine 12/17/18 Team Status: Active Member Role Status Dates Lashawn Bryant FARM CONTRACTOR, FARM CONTRACTOR-C Primary Care Provider Active Team Status: Inactive Member Role Status Dates Lashawn Bryant FARM CONTRACTOR, FARM CONTRACTOR-C Primary Care Pr ovider, Attending Provider, Referring Provider Active Team Status: Inactive Member Role Status Dates Lashawn Bryant FARM CONTRACTOR, FARM CONTRACTOR-C Primary Care Provider, Attend ing Provider Active Plant And Machinery Valuer Relationship Specialty Start Date End Date Lashawn Bryant, COOKIE MIXER HELPER.CASINO GAMING WORKER [address] [place] [address] PCP - General Family Medicine 12/17/18 Plant And Machinery Valuer Relationship Specialty Start Date End Date Lashawn Bryant, COOKIE MIXER HELPER.CASINO GAMING WORKER [address] [place], [place] [id number] PCP - General Family Medicine 12/17/18 Plant And Machinery Valuer Relationship Specialty Start Date End Date Lashawn Bryant, COOKIE MIXER HELPER.CASINO GAMING WORKER [address] [place], [place] [phone] PCP - General Family Medicine 12/17/18 Plant And Machinery Valuer Relationship Specialty Start Date End Date Lashawn Bryant, COOKIE MIXER HELPER.CASINO GAMING WORKER [address] [place], [place] [phone] PCP - General Family Medicine 12/17/18 Plant And Machinery Valuer Relationship Specialty Start Date End Date Lashawn Bryant, COOKIE MIXER HELPER.CASINO GAMING WORKER [address] [place], [place] [phone] PCP - General Family Medicine 12/17/18 Plant And Machinery Valuer Relationship Specialty Start Date End Date Lashawn Bryant, COOKIE MIXER HELPER.CASINO GAMING WORKER [address] [place], [place] [phone] PCP - General Family Medicine 12/17/18 Plant And Machinery Valuer Relationship Specialty Start Date End Date Lashawn Bryant, COOKIE MIXER HELPER.CASINO GAMING WORKER [address] [place], [place] [phone] PCP - General Family Medicine 12/17/18 Plant And Machinery Valuer Relationship Specialty Start Date End Date Lashawn Bryant, COOKIE MIXER HELPER.CASINO GAMING WORKER [address] [place] [address] PCP - General Family Medicine 12/17/18 Plant And Machinery Valuer Relationship Specialty Start Date End Date Lashawn Bryant, COOKIE MIXER HELPER.CASINO GAMING WORKER [address] [place], [place] [phone] PCP - General Family Medicine 12/17/18 Plant And Machinery Valuer Relationship Specialty Start Date End Date Lashanw Bryant, COOKIE MIXER HELPER.CASINO GAMING WORKER [address] [place], [place] [phone] PCP - General Family Medicine 12/17/18 Reason [...] section and content) DATE CREATED AUTHOR 06/02/2022 [facility] DATE CREATED AUTHOR AUTHOR'S ORGANIZ ATION 11/26/2022 [facility] DATE CREATED AUTHOR AUTHOR'S ORGANIZ ATION 09/28/2023 [facility] DATE CREATED AUTHOR AUTHOR'S ORGANIZ ATION 10/28/2023 [facility] DATE CREATED AUTHOR AUTHOR'S ORGANIZ ATION 08/21/2024 [facility] FOR RECORDS PERTAINING TO PATIENTS WHO ARE [...] BE BASED ON THE PRIMARY CLINICAL RECORDS. [facility]. provides no warranty or guarantee of the accuracy or completeness of information in this document.
[2025-01-22 23:01] LABS: Hematocrit 39.3 % (37-47); Hemoglobin 14.0 g/dL (12.0-15.0); Immature Granulocytes Count 0.010 X10^3/uL (0.0-0.0); Mean Corp Hgb Conc 35.6 g/dL (32-36); Mean Corpuscular Volume 86.8 fL (81-99); Mean Platelet Vol. 12.1 fl (6.2-12.0); NRBC Flagged by Analyzer 0 % (0-5); Platelet Count 243 K/mm3 (150-450); RBC Distribution Width CV 12.5 % (11.6-14.6); RBC Distribution Width SD 39.2 fl (35.1-43.9); Red Blood Count 4.53 M/mm3 (4.2-5.4); White Blood Count 5.5 K/mm3 (4.4-11.0)
[2025-01-22 23:02] LABS: BUN 11 mg/dL (4-19); Glucose 85 mg/dL (70-99)
[2025-01-22 23:03] LABS: AST(SGOT) 16 U/L (<=31); Alanine Aminotransfer ALT/SGPT 11 U/L (<=34); Albumin, Serum 4.7 g/dL (3.5-5.0); Alkaline Phosphatase 44 U/L (35-104); Anion Gap 10 (5-15); BUN/Creat Ratio 17.4 RATIO (10-20); Calcium,Total 9.9 mg/dL (7.6-11.0); Carbon Dioxide 28.2 mmol/L (21.0-32.0); Chloride 102 mmol/L (98-108); Cholesterol 243 mg/dL (<=200); Globulin 2.6 g/dL (2.2-4.2); Low Density Lipoprotein Calc. 169 mg/dL; Potassium 3.7 mmol/L (3.3-5.1); Triglycerides 111 mg/dL; Very Low Density Lipoprotein 22 mg/dL (5-40); cholesterol:hdl ratio screen 4.48
== END | disposition home or self-care (01) ==
PROVIDERS: PCP Nurse Practitioner; Visit Provider Nurse Practitioner
DX: Z00.00 Encounter for general adult medical examination without abnormal findings (principal)
CPT/HCPCS: 80053; 80061; 85025